=== PATIENT | female | born 1970 | race Caucasian/White ===

== ENCOUNTER 2017-11-18 15:34 | Emergency (ER) | payer MEDICAID, SELFPAY ==
[2017-11-18 15:35] VITALS: BP 143/67; PULSE 70; RESP 14; TEMP 36.3; O2SAT 96; BMI 34.4
--- NOTE | 2017-11-18 16:36 | RAD_ITS ---
STUDY: X-RAY - PELVIS REASON FOR EXAM: Female, 47 years old. Bilateral hip pain. TECHNIQUE: One view of the pelvis was obtained. COMPARISON: None. FINDINGS: There is a non-specific bowel gas pattern. Normal visualized soft tissue structures. Normal bilateral iliac wings, sacroiliac joints and visualized sacrum. Normal visualized bilateral superior and inferior pubic rami. Normal pubic symphysis. Normal ischial tuberosities. Normal visualized right femoral head. Normal right acetabulum. Normal right hip joint. Normal visualized left femoral head. Normal left acetabulum. Normal left hip joint. RAD/Pelvis 1 or 2 Views IMPRESSION: No acute pathology identified. Electronically Signed: Shane Byers MD at 16:57 EST , Service support ,
[2017-11-18 17:55] VITALS: BP 140/70; PULSE 75; RESP 14; O2SAT 99
--- NOTE | 2017-11-18 18:39 | ED.DCSUM_ITS ---
- ER Visit Summary Date of Service: 11/18/17 Chief Complaint: Bilateral acute on chronic hip pain History of Present Illness: The patient is a 47 F 3 of pseudoseizures, rheumatoid arthritis, bipolar disorder and anxiety. Patient states for the last several days she has had atraumatic bilateral hip pain. Denies any fall. Denies any fever. She has had these symptoms before. She denies being on any pain medication currently. She is able to walk. Physical Examination: Well-appearing middle-age female. Vital signs are stable and afebrile. She does not look septic or toxic. She is in no distress. H EENT exam unremarkable. Neck nontender no lymphadenopathy. Lungs clear to auscultation bilaterally. Heart regular rate and rhythm no murmur. Abdomen soft nontender. Obese. Normal bowel sounds no peritoneal signs. Extremities moves all 4. Neurovascular intact. Her hips are not dislocated. They are not swollen or red. She has normal range of motion of both hips, knees and ankles. There are no gross bony deformities or signs of dislocations. Feet are neurovascularly intact. Back exam is nontender. Neurologically she is awake and alert without focal deficits. Test Results: None Emergency Department Course and Treatment: Patient recently was seen an x-ray done of 1 of her hips. It showed degenerative changes but no fracture or dislocation. States her pain today is from chronic arthritic changes. There is no signs of septic joints there are no signs of either fracture or dislocation. And she has no history of trauma. She will be given 2 [place] here and discharged home. She can use Tylenol Motrin at home for pain she will not be written for a narcotic prescription. Treatment Plan: Discharged to home and use Tylenol Motrin for pain. Disposition: Discharge Impression: Acute on chronic bilateral hip pain with a history of rheumatoid arthritis History of bipolar disorder and anxiety This note was generated with [employer] dictation software. It may contain incorrect words, spelling, and punctuation that were not noted in review of the chart prior to signing ED Disposition - Plan for ED Patient: Chief Complaint: Lower Extremity Injury Referrals: Care Physician,No Primary [Primary Care Provider] -
--- NOTE | 2017-11-18 18:39 | ED.DEP ---
ED Disposition - Plan for ED Patient: Disposition: Home or Assisted Living Chief Complaint: Lower Extremity Injury Instructions: ED Chronic Pain Management Referrals: Care Physician,No Primary [Primary Care Provider] - As soon as possible Additional Instructions: Call and follow-up your primary care physician or your arthritis doctor for chronic pain medications or at least a plan for treatment of your pain.
[2017-11-18] MEDS: HYDROcodone Bitartrate/Apap 5/325 Tablet PO (18:51)
[2017-11-18 18:52] VITALS: BP 138/79; PULSE 61; RESP 15; O2SAT 96
== END 2017-11-18 18:53 | disposition home or self-care (01) ==
PROVIDERS: Emergency Provider Emergency Medicine
DX: M25.552 Pain in left hip (principal); M25.551 Pain in right hip; G89.29 Other chronic pain; M06.9 Rheumatoid arthritis, unspecified; F41.9 Anxiety disorder, unspecified; F31.9 Bipolar disorder, unspecified; R56.9 Unspecified convulsions; Z72.0 Tobacco use; Z79.891 Long term (current) use of opiate analgesic; Z79.899 Other long term (current) drug therapy
CPT/HCPCS: 72170; 99283

== ENCOUNTER 2018-01-17 19:02 | Observation (INO) | payer MEDICAID, SELFPAY ==
[2018-01-17] VITALS (10 sets, daily range): BP systolic 115–132; BP diastolic 57–79; PULSE 60–72; RESP 14–24; TEMP 36.7–37.1; O2SAT 96–98; BMI 33.6; BMI 34.7
--- NOTE | 2018-01-17 19:53 | EKG12_ITS ---
Test Reason : CP Blood Pressure : / mmHG Vent. Rate : 066 BPM Atrial Rate : 066 BPM P-R Int : 160 ms QRS Dur : 080 ms QT Int : 424 ms P-R-T Axes : 050 -52 -16 degrees QTc Int : 444 ms Normal sinus rhythm Left axis deviation Nonspecific ST and T wave abnormality Abnormal ECG Confirmed by MICHAEL ALVARADO, RENEA ([id number]), photography editor SANJIV CA ([id number]) on 01/20/2018 2:18:38 PM Referred By: JANAE Confirmed By:RENEA RODRIGUEZ MD
--- NOTE | 2018-01-17 19:55 | RAD_ITS ---
STUDY: X-RAY CHEST REASON FOR EXAM: Female, 47 years old. Chest pain TECHNIQUE: Frontal view of the chest COMPARISON: 12/02/2016 FINDINGS: The lungs are clear. There are no pleural effusions. There is no pneumothorax. The heart is normal in size. The visualized osseous structures are within normal limits. RAD/Chest 1 View (Portable) IMPRESSION: No acute thoracic pathology. Electronically Signed: Gion Jimenez, at 20:07 EDT Tel , Service support ,
[2018-01-17 20:04] LABS: Absolute Lymphocyte Count 4.96 X10^3/ul (0.83-4.51); Absolute Neutrophil Count 10.9 X10^3/uL (2.0-7.7); Basophil# 0.04 X10^3/uL; Basophil% 0.2 % (0-1); Eosinophil# 0.47 X10^3/uL; Eosinophils% 2.7 % (0-5); Hematocrit 42.3 % (37-47); Hemoglobin 13.6 g/dl (12.0-15.0); Lymphocyte # 4.96 X10^3/ul (4.0); Lymphocyte % 28.4 % (19-41); Mean Corp Hgb Conc 32.2 g/gl (32-36); Mean Corpuscular Hgb 28.6 pg (27.0-32.0); Mean Corpuscular Volume 89.1 fL (81-99); Mean Platelet Vol. 9.7 fl (6.2-12.0); Monocyte# 1.05 X10^3/uL; Neutrophil # 10.87 X10^3/uL (2.7-7.7); Neutrophil % 62.1 % (47-70); Platelet Count 298 K/mm3 (150-450); RBC Distribution Width CV 13.2 % (11.6-14.6); RBC Distribution Width SD 43.2 fl (35.1-43.9); Red Blood Count 4.75 M/mm3 (4.2-5.4); White Blood Count 17.5 K/mm3 (4.4-11.0)
[2018-01-17 20:14] LABS: D-Dimer Quantitative (DVT/PE) 0.36 FEU/ug/m (0.27-0.49)
[2018-01-17 20:16] LABS: POSITIVE COUNT NO; POSITIVE DIFFERENTIAL NO; POSITIVE MORPHOLOGY NO
[2018-01-17] MEDS: 0.9% Normal Saline 1,000 ML 150 ML IV (20:16)
[2018-01-17 20:22] LABS: Anion Gap 7 (5-15); BUN 8 mg/dL (7-18); BUN/Creat Ratio 10.3 RATIO (10-20); Calcium,Total 7.9 mg/dL (8.5-10.1); Chloride 109 mmol/L (98-107); Creatinine, Serum 0.77 mg/dL (0.55-1.02); EST Glomerular Filtration Rate 85 mL/min (>60); Est Glom Filt Rate - Afr Amer 103 mL/min (>60); Estimated Creatinine Clearance 87.83 ml/min; Glucose 135 mg/dL (74-106); Potassium 3.5 mmol/L (3.5-5.1); Sodium Level 139 mmol/L (136-145)
--- NOTE | 2018-01-17 21:08 | PCM.HP.STD ---
Problem List (1) Atypical chest pain Status: Acute (2) Bipolar disorder Status: Chronic (3) Rheumatoid arthritis Status: Chronic (4) Chronic stable asthma Status: Chronic History of Present Illness Date of Admission: 01/17/18 Chief Complaint: Chest pain since yesterday The patient is a 47 year old F with history of rheumatoid arthritis, bipolar and asthma came to ER with chest pain since yesterday. She describes her chest pain as bandlike in both side anteriorly over mid chest. It is constant without radiation and said felt like squeezing. She denies associated shortness of breath, sweating, diaphoresis, syncope but felt like dizziness and near fainting in the mall yesterday. Her CYRIL risk score is 1 with chest pain In ED, initial workup was negative except leukocytosis most probably because of his steroid, glucose 135. Troponin is normal. EKG shows normal sinus rhythm 56 bpm with LAD and nonspecific ST changes. No significant change from previous EKG of March 2017. [] Past Medical History Past Medical History (Chronic Problems): Chronic Problems Bipolar disorder (Chronic) Rheumatoid arthritis (Chronic) Chronic stable asthma (Chronic) Allergies ciprofloxacin [From Cipro] Allergy (Verified 11/18/17 17:54) Hives ciprofloxacin HCl [From Cipro] Allergy (Verified 11/18/17 17:54) Hives Penicillins Allergy (Verified 11/18/17 17:54) Hives Sulfa (Sulfonamide Antibiotics) Allergy (Verified 11/18/17 17:54) Hives diphenhydramine HCl [From Benadryl] Adverse Reaction (Verified 01/17/18 19:05) Other GETS HYPER Home Medications: Ambulatory Orders Medication Instructions Recorded Escitalopram Oxalate [Lexapro] 30 mg PO DAILY 03/03/14 Levothyroxine [Synthroid] 100 mcg PO DAILY 03/03/14 Aripiprazole [Abilify] 10 mg PO DAILY 12/10/15 Topiramate [Topamax] 100 mg PO QHS 12/10/15 traZODone [Desyrel] 300 mg PO QHS PRN 12/10/15 Carbamazepine [Carbamazepine ER] 800 mg PO QHS 04/27/16 Diazepam [Valium] 5 mg PO DAILY PRN 08/18/17 traMADol [Ultram] 50 mg PO Q6H PRN PRN #10 tablet 08/18/17 Methotrexate Sodium/Pf 1 dose IM QWEEK 01/17/18 [Methotrexate 25 mg/ml Vial] Smoking Status: Current every day smoker - *Family History Paternal History Items: Heart Disease Review of Systems Constitutional: Denies: Chills, Fever, Weight Change HEENT: Denies: Head Aches, Sinus Congestion, Sinus Drainage Cardiovascular: Reports: Chest Pain. Denies: Chest Pressure, Chest Tightness, Palpitations Respiratory: Denies: Cough, Shortness of breath at rest, Sputum production Gastrointestinal: Denies: Abdominal Pain, Nausea, Vomiting Genitourinary: Denies: Dysuria Musculoskeletal: Denies: Joint Pain, Joint Tenderness Skin: Denies: Rash, Wounds Neurological: Denies: Numbness, Tingling, Focal weakness Psychiatric: Denies: Anxiety, Depression, Homicidal Ideations, Suicidal Ideations Hematologic/ Lymphatic: Denies: Easy Bruising, Easy Bleeding VTE Information - Inpt Only VTE Present on Admission: No VTE Mechan Device Prophylaxis: SCD's VTE Pharm Prophylaxis ordered?: Yes Patient Problems: Active and Suspected Problems Atypical chest pain (Acute) - Physical Exam General: Alert, Oriented x3, Cooperative HEENT: Atraumatic, PERRLA, EOMI, Normocephalic Neck: Supple, No JVD, Negative Carotid Bruits Lungs: Clear to auscultation, Normal air movement, No rhonchi, No wheeze, No rales Cardiovascular: Regular rate, Regular Rhythm, Normal S1, Normal S2, No murmurs, - - Reproducible tenderness present over third to fourth costal cartilages Abdomen: Bowel Sounds Present, Soft, Non Tender Extremities: No edema, Capillary Refill Less than 3 Seconds Skin: No rashes, No breakdown Musculoskeletal: No Tenderness to Palpation of Joints or Extremities Neurological: Cranial nerves II-XII grossly intact Psych/Mental Status: Normal Affect, Appropriate Vital Signs Temp Pulse Resp BP Pulse Ox 98.0 F 60 19 H 120/79 98 01/17/18 19:03 01/17/18 21:06 01/17/18 21:06 01/17/18 21:06 01/17/18 21:06 Oxygen Flow Rate (L/min) 3 Oxygen Delivery Method Room Air Weight: 215 lb Body Mass Index (BMI) 33.6 Finger Stick Blood Glucose 98 Laboratory Tests Past 24 Hrs 01/17/18 01/17/18 01/17/18 19:13 19:13 19:13 WBC 17.5 H RBC 4.75 Hgb 13.6 Hct 42.3 MCV 89.1 MCH 28.6 MCHC 32.2 RDW 13.2 RDW Differential 43.2 Plt Count 298 MPV 9.7 Immature Gran % (Auto) 0.600 Neut % (Auto) 62.1 Lymph % (Auto) 28.4 Robertson % (Auto) 6.0 Eos % (Auto) 2.7 Baso % (Auto) 0.2 Absolute Neuts (auto) 10.9 H Absolute Lymphs (auto) 4.96 H Total Counted Not Reportable D-Dimer Quant (PE/DVT) 0.36 Sodium 139 Potassium 3.5 Chloride 109 H Carbon Dioxide 23.0 Anion Gap 7 BUN 8 Creatinine 0.77 Estim Creat Clear Calc 87.83 Est GFR (MDRD) Af Amer 103 Est GFR (MDRD) Non-Af 85 BUN/Creatinine Ratio 10.3 Glucose 135 H Calcium 7.9 L Troponin I < 0.02 Assessment/Plan Active and Suspected Problems Atypical chest pain (Acute) The patient is a 47 year old F with history of rheumatoid arthritis, bipolar and asthma came to ER with chest pain since yesterday. She describes her chest pain as bandlike in both side anteriorly over mid chest. It is constant without radiation and said felt like squeezing. She denies associated shortness of breath, sweating, diaphoresis, syncope but felt like dizziness and near fainting in the mall yesterday. Her CYRIL risk score is 1 with chest pain In ED, initial workup was negative except leukocytosis most probably because of his steroid, glucose 135. Troponin is normal. EKG shows normal sinus rhythm 56 bpm with LAD and nonspecific ST changes. No significant change from previous EKG of March 2017. 1. Atypical chest pain most probably costochondritis from RA, rule out acute coronary syndrome: Patient is being admitted in PCU. Cycle cardiac enzymes. Treadmill nuclear stress test tomorrow morning. Patient has added risk of coronary artery disease because of history of rheumatoid arthritis. 2. Rheumatoid arthritis: She is on methotrexate and on pain medications tramadol. 3. Psychiatric history including bipolar disorder, pseudoseizure disorder: She is on multiple antipsychotic medications. Continued. 4. Chronic stable asthma: Not on inhalers at home. DuoNeb as needed. 5. Leukocytosis with hyperglycemia: Etiology unclear her home medication does not show steroid but probably she might be using with history of RA. A1c tomorrow a.m. Leukocytosis seems reactive. Currently no active signs of infection. CBC tomorrow a.m. DVT prophylaxis: Moderate risk; on heparin 5000 units of cutaneous twice daily and bilateral SCDs This note was generated with [employer] dictation software. Every effort was made to ensure accuracy, however computerized property insurance inspector mistakes may persist. Code Visit OBSV E&M: 62218 Initial observation care L3
--- NOTE | 2018-01-17 21:14 | ED.DCSUM_ITS ---
- ER Visit Summary Date of Service: 01/17/18 Chief Complaint: [Chest pain] History of Present Illness: The patient is a 47 F [presents to the emergency department with chest pain that started yesterday. Patient states the pains been relatively continuous and describes it as a tightness across her chest. Patient feels short of breath with it. Patient denies diaphoresis or nausea. Patient is never had pain like this before. Patient denies recent travel or surgery. Patient does not have history of PE or DVT. Patient knows that her father had heart trouble but she does not know much about his history. Patient is a smoker. Patient denies injury to her chest. She denies fever or recent illness. Patient has had prior stress test but she states it has been many years.] Physical Examination: HEENT-PERRLA, EOMI. Cranial nerves II through XII grossly intact. TMs clear. Mucous membranes moist. No adenopathy. Cardiovascular-regular rate and rhythm without murmur or ectopy Lungs-clear to auscultation, chest wall stable without crepitus or subcu emphysema Abdomen-normoactive bowel sounds, soft, nontender, no rebound or rigidity, no peritoneal signs. Extremities-intact ?4, normal range of motion, normal pulses, atraumatic[] Test Results: [EKG obtained on arrival shows sinus rhythm with a ventricular rate of 66 bpm patient had some nonspecific ST changes when compared with prior EKG from February 20, 2017 no significant changes noted. CBC with differential obtained showed an elevated white count of 17.5, Hemoccult 13.6, hematocrit 42, platelets 298. Chemistries unremarkable. Troponin less than 0.02. D-dimer was 0.36. Chest x-ray showed nothing acute.] Emergency Department Course and Treatment: [Patient received sublingual nitro in the emergency department seemed to help her discomfort] Treatment Plan: [Patient case will be discussed with hospitalist evaluate patient for admission] Disposition: [Admit] Impression: [Chest pain-rule out acute coronary syndrome] This note was generated with [employer] dictation software. It may contain incorrect words, spelling, and punctuation that were not noted in review of the chart prior to signing ED Disposition - Plan for ED Patient: Chief Complaint: Chest Pain Referrals: Yobani Bello MD [Primary Care Provider] -
[2018-01-17] MEDS: Heparin Injection (Vial) 5,000 UNIT/ML VIAL 5000 UNIT SC (23:20)
[2018-01-17] MEDS: Topiramate 100 MG Tablet PO (23:20)
[2018-01-17] MEDS: traMADol 50 MG Tablet PO (23:20)
[2018-01-18 03:00] VITALS: PULSE 66
[2018-01-18 03:05] LABS: Absolute Lymphocyte Count 3.81 X10^3/ul (0.83-4.51); Absolute Neutrophil Count 7.3 X10^3/uL (2.0-7.7); Basophil# 0.02 X10^3/uL; Basophil% 0.2 % (0-1); Eosinophils% 3.3 % (0-5); Hematocrit 40.6 % (37-47); Hemoglobin 13.1 g/dl (12.0-15.0); Lymphocyte # 3.81 X10^3/ul (4.0); Mean Corp Hgb Conc 32.3 g/gl (32-36); Mean Corpuscular Hgb 28.8 pg (27.0-32.0); Mean Corpuscular Volume 89.2 fL (81-99); Mean Platelet Vol. 9.6 fl (6.2-12.0); Monocyte# 0.65 X10^3/uL; Monocyte% 5.3 % (0-10); Neutrophil # 7.34 X10^3/uL (2.7-7.7); Neutrophil % 59.6 % (47-70); Platelet Count 234 K/mm3 (150-450); RBC Distribution Width CV 13.4 % (11.6-14.6); RBC Distribution Width SD 43.5 fl (35.1-43.9); Red Blood Count 4.55 M/mm3 (4.2-5.4); White Blood Count 12.3 K/mm3 (4.4-11.0)
[2018-01-18 03:13] LABS: POSITIVE COUNT NO; POSITIVE DIFFERENTIAL NO; POSITIVE MORPHOLOGY NO
[2018-01-18 03:44] LABS: Cholesterol 190 mg/dL (200); High Density Lipoprotein 28 mg/dL; Thyroid Stim Hormone (TSH) 2.89 uIU/mL (0.358-3.74); Triglycerides 396 mg/dL; Very Low Density Lipoprotein 79 mg/dL (5-40)
[2018-01-18 03:53] LABS: Anion Gap 7 (5-15); BUN 7 mg/dL (7-18); BUN/Creat Ratio 10.5 RATIO (10-20); Calcium,Total 7.6 mg/dL (8.5-10.1); Chloride 112 mmol/L (98-107); Creatinine, Serum 0.66 mg/dL (0.55-1.02); EST Glomerular Filtration Rate 101 mL/min (>60); Est Glom Filt Rate - Afr Amer 122 mL/min (>60); Estimated Creatinine Clearance 102.47 ml/min; Glucose 150 mg/dL (74-106); Potassium 3.7 mmol/L (3.5-5.1); Sodium Level 142 mmol/L (136-145)
[2018-01-18 04:15] VITALS: BP 134/68; PULSE 71; RESP 18; TEMP 37; O2SAT 95
[2018-01-18] MEDS: Levothyroxine 100 MCG Tablet PO (05:50)
--- NOTE | 2018-01-18 05:55 | EKG12_ITS ---
Test Reason : AM EKG Blood Pressure : / mmHG Vent. Rate : 063 BPM Atrial Rate : 063 BPM P-R Int : 162 ms QRS Dur : 086 ms QT Int : 428 ms P-R-T Axes : 036 -32 -09 degrees QTc Int : 437 ms Normal sinus rhythm Left axis deviation Abnormal ECG When compared with ECG of 17-JAN-2018 19:04, MANUAL COMPARISON REQUIRED, DATA IS UNCONFIRMED Confirmed by MICHAEL ALVARADO, RENEA ([id number]), television news video editor SANJIV CA ([id number]) on 01/22/2018 2:33:19 PM Referred By: BRYNN Confirmed By:RENEA RODRIGUEZ MD
[2018-01-18 06:19] LABS: International Normalized Ratio 1.1; Prothrombin Time (Protime)PT. 14.3 SECONDS (11.7-14.9)
[2018-01-18 06:20] LABS: Partial Thromboplast Time 28.8 Seconds (24.1-36.2)
[2018-01-18 06:59] VITALS: PULSE 60
[2018-01-18] MEDS: traMADol 50 MG Tablet PO (07:08)
[2018-01-18 09:02] LABS: Hemoglobin A1c 6.2 % (4.2-6.3)
--- NOTE | 2018-01-18 10:11 | STRESSREP ---
Stress Test Report Pharmacologic myocardial perfusion stress test. 47-year-old lady with a history of chest pain. Stress protocol: Resting EKG demonstrates sinus rhythm with rate of 62 bpm normal intervals and noted resting blood pressure is 136/78 mmHg. 0.4 mg of regadenoson was infused per usual protocol followed by rapid intravenous saline flush injection continuous EKG monitoring was performed. The patient maintained sinus rhythm throughout the recording at rest there were no ST or T-wave changes noted suggest abnormal flow reserve at peak infusion no ST or T-wave changes were noted to suggest abnormal flow reserve. The resting blood pressure is 136/78 with a peak blood pressure 150/72. Myocardial perfusion protocol: 13.4 mCi of technetium 99m sestamibi was injected at rest. 0.4 mg of regadenoson was infused per usual protocol peak infusion 40.4 mCi of technetium 99m sestamibi was injected stress images were obtained stress and rest images were reconstructed and compared in the short axis vertical long and horizontal long axis. Gated images were also obtained next Perfusion SPECT analysis: Review of the stress images demonstrate normal uptake of tracer noted in all areas of the myocardium. The resting images similarly demonstrate normal uptake of tracer noted in all areas of the myocardium. No areas of reversibility are noted suggest ischemia. Gated SPECT analysis: The gated ejection fraction is 84%. Conclusion: Normal pharmacologic myocardial perfusion stress test. Preserved ejection fraction.
[2018-01-18 10:15] VITALS: BP 129/66; PULSE 64; RESP 16; TEMP 36.8; O2SAT 98
[2018-01-18] MEDS: Escitalopram Oxalate 10 MG Tablet 30 MG PO (10:18)
[2018-01-18] MEDS: ARIPiprazole 10 MG Tablet PO (10:18)
[2018-01-18 10:54] VITALS: PULSE 60
--- NOTE | 2018-01-18 11:17 | DCINST_ITS ---
- Discharge Diagnoses Current Active Problems: Current Active and Chronic Problems Atypical chest pain (Acute) Bipolar disorder (Chronic) Rheumatoid arthritis (Chronic) Chronic stable asthma (Chronic) You will use the following diet at home:: Calorie/Carbohydrate Controlled ( specify 1200, 1400, etc) - 1800 dora / day Your food should be the consistency of: Regular Your liquids should be the consistency of: Regular/Thin Discharge Activity: Return to Normal Activity Allergies/Adverse Reactions: Allergies ciprofloxacin [From Cipro] Allergy (Verified 11/18/17 17:54) Hives ciprofloxacin HCl [From Cipro] Allergy (Verified 11/18/17 17:54) Hives Penicillins Allergy (Verified 11/18/17 17:54) Hives Sulfa (Sulfonamide Antibiotics) Allergy (Verified 11/18/17 17:54) Hives diphenhydramine HCl [From Benadryl] Adverse Reaction (Verified 01/17/18 19:05) Other GETS HYPER Medications to take at Discharge Escitalopram Oxalate [Lexapro] 30 mg PO DAILY 03/03/14 Levothyroxine [Synthroid] 100 mcg PO DAILY 03/03/14 Aripiprazole [Abilify] 10 mg PO DAILY 12/10/15 Topiramate [Topamax] 100 mg PO QHS 12/10/15 traZODone [Desyrel] 300 mg PO QHS PRN 12/10/15 Carbamazepine [Carbamazepine ER] 800 mg PO QHS 04/27/16 Diazepam [Valium] 5 mg PO DAILY PRN 08/18/17 traMADol [Ultram] 50 mg PO Q6H PRN PRN #10 tablet 08/18/17 Methotrexate Sodium/Pf [Methotrexate 25 mg/ml Vial] 1 dose IM QWEEK 01/17/18 Primary Care Physician: Yobani Bello MD [Primary Care Provider] - Please follow up with your Primary Care Physician in: 1-2 weeks Please Follow Up With: Rheumatology - Discuss recent medication changes When: 1-2 weeks Proposed Discharge Date: 01/18/18
--- NOTE | 2018-01-18 14:27 | PCM.DC.SUM ---
<José Luis Perez - Last Filed: 01/18/18 14:27> Discharge Date and Diagnosis Date of Admission: 01/17/18 Date of Discharge: 01/18/18 - Primary Discharge Diagnosis Chest pain - musculoskeletal RA Prediabetes mellitus Obesity Hypertriglyceridemia Bipolar disorder, pseudoseizure hx Asthma Unspecified leukocytosis. - Secondary Discharge Diagnosis Chronic Problems Bipolar disorder (Chronic) Rheumatoid arthritis (Chronic) Chronic stable asthma (Chronic) Hospital Course and Treatment Imaging Results: RAD/Chest 1 View (Portable) IMPRESSION: No acute thoracic pathology. Stress test: Conclusion: Normal pharmacologic myocardial perfusion stress test. Preserved ejection fraction. Operations: None Procedures: Stress test Summary of Care Provided: Physical exam on day of discharge: General: Resting comfortably NAD Psych: A/Ox3 normal affect HEENT: PEARRLA AT NC Neck: Supple NT CV: RRR no m/t/r/g/h Resp: CTA Abd: [id number] Soft NT no guarding or rigidity, obesity Ext: DP2+= no edema Skin: W/D normal turgor Lymph/Heme: No active bleeding or adenopathy Neuro: CN2-12 intact Hospital course: The patient is a 47 year old F history of rheumatoid arthritis, bipolar disorder, pseudoseizures, obesity, and asthma who presented to the emergency room with chief complaint of chest pain that she described as a bandlike sensation across the anterior chest wall bilaterally. It was a constant pain that began the day prior that she had not experienced in the past. She did recently have one of her RA injections changed although she was not sure which one. She had a negative EKG and negative troponin in the ER. She had a negative chest x-ray as well. D-dimer was checked which was negative. She was admitted to the hospital for chest pain workup. Troponin remains negative, no events on telemetry, negative stress test the following day. She had her lipid panel checked which demonstrated LDL of 83, triglycerides significantly elevated at 396, and low HDL. TSH was normal. Given her obesity, and lipid changes, and underlying insulin resistance she likely has metabolic syndrome. Is felt that her pain was likely musculoskeletal secondary to rheumatoid arthritis possibly from her recent medication change. she had elevated glucose and A1c was checked, 6.2, which is consistent with prediabetes. I ordered for her to have diabetic education while she was here but will defer oral medications at this time. I advised her to stick to a diabetic diet, that she should follow-up with her PCP in 1-2 weeks, and also follow-up with her director financial services to discuss her recent medication changes. She did have an incidental finding of elevated white count at admission which improved overnight without treatment. There is no definitive etiology for this at this time, I do not feel that there is an acute infectious process at this time. She had no specific complaints indicating infection, and no fever. She was discharged home in stable condition. This patient was seen by José Luis Perez PA-C under the supervision of Doctor Cowan. [] Discharge Activity: Return to Normal Activity Home Medications: Medications to take at Discharge Escitalopram Oxalate [Lexapro] 30 mg PO DAILY 03/03/14 Levothyroxine [Synthroid] 100 mcg PO DAILY 03/03/14 Aripiprazole [Abilify] 10 mg PO DAILY 12/10/15 Topiramate [Topamax] 100 mg PO QHS 12/10/15 traZODone [Desyrel] 300 mg PO QHS PRN 12/10/15 Carbamazepine [Carbamazepine ER] 800 mg PO QHS 04/27/16 Diazepam [Valium] 5 mg PO DAILY PRN 08/18/17 traMADol [Ultram] 50 mg PO Q6H PRN PRN #10 tablet 08/18/17 Methotrexate Sodium/Pf [Methotrexate 25 mg/ml Vial] 1 dose IM QWEEK 01/17/18 Primary Care Physician: Yobani Bello MD [Primary Care Provider] - Please follow up with your Primary Care Physician in: 1-2 weeks Please Follow Up With: Rheumatology - Discuss recent medication changes When: 1-2 weeks Medical Necessity - Tobacco Use Smoking Status: Current every day smoker Meaningful Use Info Meaningful Use Diagnoses (Choose all that apply): None applicable <Shola Cowan - Last Filed: 01/18/18 15:10> Discharge Date and Diagnosis - Secondary Discharge Diagnosis Chronic Problems Bipolar disorder (Chronic) Rheumatoid arthritis (Chronic) Chronic stable asthma (Chronic) Hospital Course and Treatment Operations: None Procedures: Stress test Summary of Care Provided: Patient seen and examined independently. Agree with the above notes by the physician elder assistant. The patient is a 47 year old F resents with midsternal chest pain. Workup was unremarkable. Stress test was negative for any inducible ischemia. Physical exam is consistent with reproducible anterior chest wall tenderness. Patient was concerned that was 1 of her medications that cause it but was unsure but it was an injection. I told her that it is unlikely that it was due to the medication but feels prior more chest wall in etiology. Reassurance was provided to the patient and patient was discharged to home. [] Discharge Diet: No Restrictions Discharge Activity: Return to Normal Activity Disposition: Home Minutes spent on discharge:: 25 Patient Condition:: Good Meaningful Use Info Meaningful Use Diagnoses (Choose all that apply): None applicable Code Visit OBSV E&M: 03467 Observation care discharge
--- NOTE | 2018-01-18 14:36 | DS.PCM_ITS ---
<José Luis Perez - Last Filed: 01/18/18 14:27> Discharge Date and Diagnosis Date of Admission: 01/17/18 Date of Discharge: 01/18/18 - Primary Discharge Diagnosis Chest pain - musculoskeletal RA Prediabetes mellitus Obesity Hypertriglyceridemia Bipolar disorder, pseudoseizure hx Asthma Unspecified leukocytosis. - Secondary Discharge Diagnosis Chronic Problems Bipolar disorder (Chronic) Rheumatoid arthritis (Chronic) Chronic stable asthma (Chronic) Hospital Course and Treatment Imaging Results: RAD/Chest 1 View (Portable) IMPRESSION: No acute thoracic pathology. Stress test: Conclusion: Normal pharmacologic myocardial perfusion stress test. Preserved ejection fraction. Operations: None Procedures: Stress test Summary of Care Provided: Physical exam on day of discharge: General: Resting comfortably NAD Psych: A/Ox3 normal affect HEENT: PEARRLA AT NC Neck: Supple NT CV: RRR no m/t/r/g/h Resp: CTA Abd: [id number] Soft NT no guarding or rigidity, obesity Ext: DP2+= no edema Skin: W/D normal turgor Lymph/Heme: No active bleeding or adenopathy Neuro: CN2-12 intact Hospital course: The patient is a 47 year old F history of rheumatoid arthritis, bipolar disorder , pseudoseizures, obesity, and asthma who presented to the emergency room with chief complaint of chest pain that she described as a bandlike sensation across the anterior chest wall bilaterally. It was a constant pain that began the day prior that she had not experienced in the past. She did recently have one of her RA injections changed although she was not sure which one. She had a negative EKG and negative troponin in the ER. She had a negative chest x-ray as well. D-dimer was checked which was negative. She was admitted to the hospital for chest pain workup. Troponin remains negative, no events on telemetry, negative stress test the following day. She had her lipid panel checked which demonstrated LDL of 83, triglycerides significantly elevated at 396, and low HDL. TSH was normal. Given her obesity, and lipid changes, and underlying insulin resistance she likely has metabolic syndrome. Is felt that her pain was likely musculoskeletal secondary to rheumatoid arthritis possibly from her recent medication change. she had elevated glucose and A1c was checked , 6.2, which is consistent with prediabetes. I ordered for her to have diabetic education while she was here but will defer oral medications at this time. I advised her to stick to a diabetic diet, that she should follow-up with her PCP in 1-2 weeks, and also follow-up with her personnel technician to discuss her recent medication changes. She did have an incidental finding of elevated white count at admission which improved overnight without treatment. There is no definitive etiology for this at this time, I do not feel that there is an acute infectious process at this time. She had no specific complaints indicating infection, and no fever. She was discharged home in stable condition. This patient was seen by José Luis Perez PA-C under the supervision of Doctor Cowan. [] Discharge Activity: Return to Normal Activity Home Medications: Medications to take at Discharge Escitalopram Oxalate [Lexapro] 30 mg PO DAILY 03/03/14 Levothyroxine [Synthroid] 100 mcg PO DAILY 03/03/14 Aripiprazole [Abilify] 10 mg PO DAILY 12/10/15 Topiramate [Topamax] 100 mg PO QHS 12/10/15 traZODone [Desyrel] 300 mg PO QHS PRN 12/10/15 Carbamazepine [Carbamazepine ER] 800 mg PO QHS 04/27/16 Diazepam [Valium] 5 mg PO DAILY PRN 08/18/17 traMADol [Ultram] 50 mg PO Q6H PRN PRN #10 tablet 08/18/17 Methotrexate Sodium/Pf [Methotrexate 25 mg/ml Vial] 1 dose IM QWEEK 01/17/18 Primary Care Physician: Yobani Bello MD [Primary Care Provider] - Please follow up with your Primary Care Physician in: 1-2 weeks Please Follow Up With: Rheumatology - Discuss recent medication changes When: 1-2 weeks Medical Necessity - Tobacco Use Smoking Status: Current every day smoker Meaningful Use Info Meaningful Use Diagnoses (Choose all that apply): None applicable <Shola Cowan - Last Filed: 01/18/18 15:10> Discharge Date and Diagnosis - Secondary Discharge Diagnosis Chronic Problems Bipolar disorder (Chronic) Rheumatoid arthritis (Chronic) Chronic stable asthma (Chronic) Hospital Course and Treatment Operations: None Procedures: Stress test Summary of Care Provided: Patient seen and examined independently. Agree with the above notes by the physician assistant professor of biochemistry. The patient is a 47 year old F resents with midsternal chest pain. Workup was unremarkable. Stress test was negative for any inducible ischemia. Physical exam is consistent with reproducible anterior chest wall tenderness. Patient was concerned that was 1 of her medications that cause it but was unsure but it was an injection. I told her that it is unlikely that it was due to the medication but feels prior more chest wall in etiology. Reassurance was provided to the patient and patient was discharged to home. [] Discharge Diet: No Restrictions Discharge Activity: Return to Normal Activity Disposition: Home Minutes spent on discharge:: 25 Patient Condition:: Good Meaningful Use Info Meaningful Use Diagnoses (Choose all that apply): None applicable Code Visit OBSV E&M: 19822 Observation care discharge
== END 2018-01-18 11:17 | disposition home or self-care (01) ==
LOC: ED 19:47 → PCU 21:35
PROVIDERS: Admitting Provider Internal Medicine; Emergency Provider Emergency Medicine; Family Provider Family Medicine; PCP Family Medicine
DX: R07.89 Other chest pain (principal); R06.02 Shortness of breath; F31.9 Bipolar disorder, unspecified; Z79.899 Other long term (current) drug therapy; M06.9 Rheumatoid arthritis, unspecified; J45.909 Unspecified asthma, uncomplicated; D72.829 Elevated white blood cell count, unspecified; E78.1 Pure hyperglyceridemia; R73.03 Prediabetes; E66.9 Obesity, unspecified; Z68.34 Body mass index [BMI] 34.0-34.9, adult; Z71.3 Dietary counseling and surveillance; F17.200 Nicotine dependence, unspecified, uncomplicated
CPT/HCPCS: 36415; 71045; 78452; 80048; 80061; 83036; 83735; 84443; 84484; 85025; 85379; 85610; 85730; 93005; 93017; 96360; 96361; 96372; 97802; 99218; 99284; A9500; J7030; A4216; G0378; J2785

== ENCOUNTER 2018-02-07 16:07 | Emergency (ER) | payer MEDICAID, SELFPAY ==
[2018-02-07 16:08] VITALS: BP 141/86; PULSE 67; RESP 15; TEMP 36.7; O2SAT 99; BMI 33.3
--- NOTE | 2018-02-07 18:20 | RAD_ITS ---
STUDY: X-RAY CHEST REASON FOR EXAM: Female, 47 years old. Cough TECHNIQUE: Frontal and lateral views of the chest. COMPARISON: None. FINDINGS: The lungs are clear and expanded. There is no demonstrated pleural abnormality. Normal size heart. Normal mediastinum and benjamin. Normal visualized pulmonary arteries. Normal visualized aortic arch and descending thoracic aorta. Normal visualized thoracic spine. Normal visualized ribs, clavicles, and shoulders. There is no demonstrated abnormality of the visualized soft tissue structures of the upper abdomen. RAD/Chest PA and Lateral IMPRESSION: Normal x-ray examination of the chest. Electronically Signed: Damon Toney MD at 18:43 EDT , Service support ,
--- NOTE | 2018-02-07 18:58 | ED.DCSUM_ITS ---
- ER Visit Summary Date of Service: 02/07/18 Chief Complaint: Cough History of Present Illness: The patient is a 47 F who states for the past 3 weeks she has had a cough. She states she is coughing fits. He recently saw a physician was placed on doxycycline and prednisone. She states helping. She has tried Tessalon Perles that is not helping. The cough is nonproductive. There is no fever. It has been so bad that she is only been able to have one cigarette. Physical Examination: Afebrile vital signs are stable Gen: Well-nourished well-developed Head: Normocephalic atraumatic Eyes: Perrl EOMI ENT: TMs clear no rhinorrhea moist mucous membranes Neck: Supple no lymphadenopathy no JVD nontender CVS: Regular rate rhythm no murmurs normal S1-S2 Respiratory: No distress clear to auscultation bilaterally chest nontender the patient has an inconsistent cough. As a stand outside her room speaking with another patient's family there is no coughing. Says they walk into the room the patient starts to cough uncontrollably. She is able to stop however and begin talking to me without difficulty. Abdomen: Soft nontender nondistended normal bowel sounds no masses Back: Nontender Extremity: Nontender no edema Skin: Normal color no rash Neuro: alert orientated ?3 CN II-XII intact normal strength sensation reflexes gait cerebellar Psych: Normal affect normal mood Test Results: Chest x-ray is negative. Emergency Department Course and Treatment: I believe this to be viral. I will write for a cough medicine. She will follow-up with her doctors. Impression: 1. Viral URI This note was generated with [employer] dictation software. It may contain incorrect words, spelling, and punctuation that were not noted in review of the chart prior to signing ED Disposition - Plan for ED Patient: Disposition: Home or Assisted Living Chief Complaint: Cough Instructions: ED Upper Resp Infec Abx Tx Prescriptions: Guaifenesin/Codeine Phosphate [Codeine-Guaifen 10-100 mg/5 ml] 10 ml PO Q6H PRN 5 Days #200 ml PRN Reason: Cough Additional Instructions: Follow-up with your primary care doctor if not improving
== END 2018-02-07 19:16 | disposition home or self-care (01) ==
PROVIDERS: Emergency Provider Emergency Medicine; Family Provider Family Medicine; PCP Family Medicine
DX: J06.9 Acute upper respiratory infection, unspecified (principal); F17.210 Nicotine dependence, cigarettes, uncomplicated
CPT/HCPCS: 71046; 99284

== ENCOUNTER → 2018-02-19 15:21 | Outpatient (CLI) | payer MEDICAID, SELFPAY ==
--- NOTE | 2018-02-19 15:21 | DT_ITS ---
This patient was seen during an EMR downtime February 17, 2018 - February 24, 2018. This patient may have a combination of paper and electronic documentation or all paper documentation. All documentation is viewable within the e-chart portion of [facility] for each patient visit.
[2018-02-23 15:32] LABS: Thyroid Stim Hormone (TSH) 7.47 uIU/mL (0.358-3.74)
== END ==
PROVIDERS: Family Provider Family Medicine; PCP Family Medicine; Visit Provider Family Medicine
DX: E03.9 Hypothyroidism, unspecified (principal)
CPT/HCPCS: 36415; 84439; 84443; 86376; 86800

== ENCOUNTER → 2018-02-26 12:09 | Outpatient (CLI) | payer MEDICAID, SELFPAY ==
--- NOTE | 2018-02-26 12:12 | US_ITS ---
STUDY: THYROID ULTRASOUND REASON FOR EXAM: Female, 47 years old. Nodule TECHNIQUE: Ultrasound evaluation of the thyroid was performed with real-time and static cox-scale imaging. COMPARISON: None. FINDINGS: RIGHT LOBE: The right lobe of the thyroid gland measures 4.9 x 1.9 x 1.3 cm. There is a homogeneous echotexture. There are 2 solid nodules measuring 1 cm each. LEFT LOBE: The left lobe of the thyroid gland measures 5.0 x 2.4 x 1.7 cm. There is a homogeneous echotexture. There are nodules measuring 6 mm and 2.6 cm. ISTHMUS: The isthmus measures 3 mm . The regional lymph nodes are normal. US/Thyroid IMPRESSION: Bilateral thyroid nodules with one on the left measuring as much as 2.6 cm. Recommend biopsy of the dominant left thyroid nodule. Electronically Signed: Moe Soto MD at 8:38 EDT , Service support ,
== END ==
PROVIDERS: Family Provider Family Medicine; PCP Family Medicine; Visit Provider Family Medicine
DX: E04.1 Nontoxic single thyroid nodule (principal)
CPT/HCPCS: 76536

== ENCOUNTER 2018-02-27 15:00 | Outpatient (RCR) | payer MEDICAID, SELFPAY ==
--- NOTE | 2018-01-29 11:22 | HP.PTEVAL ---
Patient's Visit Information RYAN REYES is a 47 year old F referred to Physical Therapy by Out of Town Doctor with a diagnosis of Fibromyalgia. Date of Evaluation: 01/29/18 Physical Therapist: Ngoc Love - Visit Plan Frequency: 2x /Week Duration: 4 Weeks Plan: Aquatics Focus on full body strengthening and postural awareness - Subjective Subjective: Patient reports that she has Fibromyalgia and the MD thinks that they best thing to help treat is water therapy. Patient reports she has pain from head to toe- thats pretty much all the time. Fibro and RA. Has had 2 injections and they seem to be helping and will continue injections 1x a week then will do bloodwork and decide if she will keep her on it or not. The medication has been decreasing her pain but it makes her sleepy and it makes the right top of her foot numb. But its worth it. Worst: [address]: lifting, doing stuff she isn't suppose to do eases: Injections, heating bad. Best: 0/10. Last time has had pain was this morning due to sleeping in the wrong bed last night. The pain is much more managable now. Pain is dull and achy and sharp/shooting depending on what is going on. Numbness/Tingling on the top of her right foot with the injections. Her 16 year old daughter is in the home but she is not the timekeeper supervisor caregiver ( is). He does most of the care for her. She has seizures that makes it impossible her to be safecaregiver. Does not work outside of her home. Is currently taking tests to get into the career center and is hoping to take a year off due to the pain. But plans to go back. Patient is very sedentary and sleeps alot of day- sleeps in all positions and has no problems sleeping. Mostly sleeps on the couch. PMhx: Seizures (with pain)-is currently having them 2x a week- but will pull hair or scratch before the seizure. Will ride the van. 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 Meds: Escitalopram Oxalate [Lexapro] 30 mg PO DAILY 03/03/14 Levothyroxine [Synthroid] 100 mcg PO DAILY 03/03/14 Aripiprazole [Abilify] 10 mg PO DAILY 12/10/15 Topiramate [Topamax] 100 mg PO QHS 12/10/15 traZODone [Desyrel] 300 mg PO QHS PRN 12/10/15 Carbamazepine [Carbamazepine ER] 800 mg PO QHS 04/27/16 Diazepam [Valium] 5 mg PO DAILY PRN 08/18/17 traMADol [Ultram] 50 mg PO Q6H PRN PRN #10 tablet 08/18/17 Methotrexate Sodium/Pf [Methotrexate 25 mg/ml Vial] 1 dose IM QWEEK 01/17/18 Do not call 911 for seizures- will come out within 1-2 minutes. - Objective Posture: FH, RS. Increased kyphosis. Gait: no deviation noted. Stairs:asc/desc 8 recip with 2 HR. HR/TR: able but requires UE A. SLS: 2 sec on right and 1 sec on left before UE A required. ROM: WFL in all planes of UE and LE. Sensation: WNL. Strength: Ankle: 4+/5, Knee: 4+/5, Hip: 4/5 throughout, Core: fair minus, Scap: fair minus, Shoulder: 4/5 throughout, Elbow: 5/5, Wrist: 5/5, Starcher And Tenter Range Feeder: equal. Flex: HS: moderate, Gastroc: moderate - Goals Goal 1:: Patient will be I with HEP and progression Goal Time Frame: 4-6 Weeks Goal 2:: Patient will asc/desc 8 stairs recip with 1 HR Goal Time Frame: 4-6 Weeks Goal 3:: Patient will maintain proper posture t/o tx session to demo increased scap and core s/s Goal Time Frame: 4-6 Weeks Goal 4:: Patient will report no more than a 4/10 pain for 1 week Goal Time Frame: 4-6 Weeks - Rehabilitation Potential Physical Therapy Diagnosis: Patient presents with decrease strength and muscular endurance leading to poor posture and increased pain with mobility Rehabilitation Potential: Fair - Anticipated Interventions Patient/Client Instruction: Educate patient on: Benefits of Fitness Program For the Purpose of:: To increase tolerance to activity/condition/position Therapeutic Exercise to Include: Strength training, Endurance training, Agility training, Body mechanics, Postural training, Flexibilty training, In an aquatic setting, Dynamic Lumbar Stabilization, Scapular Strength/Stabilization For the Purpose of:: To improve muscle performance and motor function Thank you for the opportunity to evaluate your patient. For Medicare and Medicare HMO plans, please review the plan of care and approve it. It will need to be FAXED BACK to us at [phone] for Medicare purposes. Please let me know if there are questions or concerns regarding this plan of care. Physician Signature: Date:
--- NOTE | 2018-02-27 15:19 | HP.PTDCSUM ---
HP - PT D/C Summary It has been my pleasure to treat RYAN REYES under orders from [facility] Doctor, for the diagnosis of Fibromyalgia for a total of 6 visit(s). Discharge Date: Please see the following information for a summary of their discharge status. - Subjective Subjective: Patient reports that she learned a lot from water therapy. Quit smoking 12 days ago- Thinks she wants to try to do therapy at home. Was able to walk a long ways today when her car broke down. Has not had a seizure in over 2 weeks. - Pain General Soreness Pain Intensity (Out of 10): 0 - Overall Improvement % Improvement: 75 - Objective Objective/Function: Posture: FH, RS. Increased kyphosis. Gait: no deviation noted. Stairs:asc/desc 8 recip with 1 HR. HR/TR: able. SLS: 5 sec on right and 3 sec on left before UE A required. ROM: WFL in all planes of UE and LE. Sensation: WNL. Strength: Ankle: 4+/5, Knee: 4+/5, Hip: 4+/5 throughout, Core: fair, Scap: fair , Shoulder: 4+/5 throughout, Elbow: 5/5, Wrist: 5/5, Drill Sharpener Operator: equal. Flex: HS: moderate, Gastroc: moderate - Goals Goal 1:: Patient will be I with HEP and progression Goal Progress: Goal Met Goal 2:: Patient will asc/desc 8 stairs recip with 1 HR Goal Progress: Goal Met Goal 3:: Patient will maintain proper posture t/o tx session to demo increased scap and core s/s Goal Progress: Progressing Goal 4:: Patient will report no more than a 4/10 pain for 1 week Goal Progress: Goal Met - Plan Plan: Discharge to I HEP - D/C Information If there are questions or concerns regarding this patient's physical therapy, please feel free to call me at [phone]. Thank you for the referral of this patient. Sincerely, Ngoc Love
== END 2018-02-27 19:00 | disposition home or self-care (01) ==
LOC: PT 15:00
PROVIDERS: Family Provider Family Medicine; PCP Family Medicine; Visit Provider Internal Medicine Rheumatology
DX: M79.7 Fibromyalgia (principal)
CPT/HCPCS: 97113; 97162; 97164

== ENCOUNTER 2018-03-02 22:43 | Emergency (ER) | payer MEDICAID, SELFPAY ==
[2018-03-02 22:46] VITALS: BP 143/72; PULSE 64; RESP 18; TEMP 36.4; O2SAT 97; BMI 34.4
--- NOTE | 2018-03-02 23:00 | ED.DCSUM_ITS ---
- ER Visit Summary Date of Service: 03/02/18 Chief Complaint: Thyroid nodules History of Present Illness: The patient is a 47 F 3 of pseudoseizures, depression, anxiety and bipolar disorder. Patient states last week she was diagnosed with thyroid nodules. She was concerned and with swelling giving her trouble breathing. She denies being shortness of breath. She denies chest pain. She denies any trouble swallowing. Physical Examination: Very well-appearing middle-age female. Vital signs are stable afebrile. Pulse ox 97% on room air no signs of hypoxia. She is in no distress. HEENT exam unremarkable neck nontender I do not palpate any thyroid enlargement or nodules. No lymphadenopathy. Trachea midline. Patient was given a glass of water she had absolutely no trouble swallowing or breathing. There is no drooling or stridor. Lungs are clear. Heart regular rate and rhythm no murmur. Chest wall nontender. Abdomen soft nontender. She is moving all 4 extremities. Neurologically she is awake alert with no focal deficits. Test Results: None Emergency Department Course and Treatment: Clinically the patient has a normal exam. This appears to be more anxiety about the thyroid nodules and any true pathology at this time. She will be discharged to home. Follow-up regarding her thyroid nodules to her primary care physician. Treatment Plan: [] Disposition: Discharge Impression: Acute anxiety History of thyroid nodules History of depression, anxiety and bipolar disorder This note was generated with [employer] dictation software. It may contain incorrect words, spelling, and punctuation that were not noted in review of the chart prior to signing ED Disposition - Plan for ED Patient: Chief Complaint: Other, Pain/Inj Referrals: Arya Cason MD [Primary Care Provider] -
--- NOTE | 2018-03-02 23:00 | ED.DEP ---
ED Disposition - Plan for ED Patient: Disposition: Home or Assisted Living Chief Complaint: Other, Pain/Inj Referrals: Arya Cason MD [Primary Care Provider] - 1-2 Weeks Additional Instructions: Call and follow-up your primary care physician.
[2018-03-02 23:04] VITALS: RESP 16
--- NOTE | 2018-03-02 23:05 | ED.RN ---
REVIEWED D/C INSTRUCTIONS, FOLLOW UP CARE, AND S/S THAT WOULD WARRANT A RETURN TO THE ED WITH PT. PT VERBALIZED AN UNDERSTANDING AND DENIES FURTHER QUESTIONS FOR THIS RN. PT SKIN P/W/D, RESP EVEN AND UNLABORED, PT A&O X 3, NO DISTRESS NOTED. PT AMBULATED OUT OF ED, GAIT STEADY.
== END 2018-03-02 23:06 | disposition home or self-care (01) ==
PROVIDERS: Emergency Provider Emergency Medicine; Family Provider Family Medicine; PCP Family Medicine
DX: F41.9 Anxiety disorder, unspecified (principal); E04.1 Nontoxic single thyroid nodule; F32.9 Major depressive disorder, single episode, unspecified; Z72.0 Tobacco use; Z79.891 Long term (current) use of opiate analgesic; Z79.899 Other long term (current) drug therapy
CPT/HCPCS: 99284

== ENCOUNTER → 2018-03-22 10:00 | Outpatient (CLI) | payer MEDICAID, SELFPAY ==
--- NOTE | 2018-03-22 10:00 | ASPS_PTH ---
PATIENT: RYAN REYES LOC: [facility] U#:[id number] AGE/SX: 55/F ROOM: RE03/22/[address]: Dr. Jem Elias MD : 1970 BED: DIS: SPEC #: [id number] RECD: 03/24/18 14:35 STATUS: GISSELL KADEEM #: [id number] ISMAEL: 03/22/18 10:[address]: Jem Elias DEPT: CYTOLOGY RECD BY: Matt Patricia ENTERED: 03/24/18 14:35 SP TYPE: ASPIRATION OTHR DR: Dr. Arya Cason MD Tissues: A - Thyroid gland, NOS B - Thyroid gland, NOS Procedures: Special Stain Group II Cytology Other HEADER OPERATION: Bilateral thyroid FNA PRE-OP DIAGNOSIS: Bilateral thyroid nodules TISSUE SUBMITTED: A ? Right thyroid (6 slides), B ? Left thyroid (6 slides) DIAGNOSIS CYTOLOGY A. Right thyroid nodule, FNA (smears): Consistent with benign follicular nodule. See cytology study and comment. B. Left thyroid nodule, FNA (smears): Consistent with benign follicular nodule with focal cystic changes. See cytology study and comment. SJ:rg 03/25/18 COMMENT Correlation with clinical, radiologic findings and appropriate follow up are necessary. CYTOLOGY STUDY Slides are reviewed. A. The specimen is adequate for evaluation. The specimen consists of benign follicular cells and small amount of colloid. B. The specimen is adequate for evaluation. The specimen consists of benign follicular cells, colloid and macrophages. The findings may represent adenomatoid nodule with cystic changes. CYTOLOGY GROSS A - Received are six smears labeled with the patient's name and designated per the requisition as right thyroid. Submitted for staining. B - Received are six smears labeled with the patient's name and designated per the requisition as left thyroid. Submitted for staining. 03/24/18 TC:5 CPT: 57071 x2
== END ==
PROVIDERS: Family Provider Family Medicine; PCP Family Medicine; Visit Provider Surgery
DX: E04.1 Nontoxic single thyroid nodule (principal)
CPT/HCPCS: 88161; 88313

== ENCOUNTER 2018-06-10 17:08 | Emergency (ER) | payer MEDICAID, SELFPAY ==
[2018-06-10] VITALS (7 sets, daily range): BP systolic 127–140; BP diastolic 73–83; PULSE 74–86; RESP 15–16; TEMP 36.7; O2SAT 96–99; BMI 34.9
--- NOTE | 2018-06-10 17:50 | CM.ED ---
Social Work Note Referral from [facility] Mike RN for verification of suicidal ideation. Introduced self and role to pt upon entry into ED room. Pt is alert and oriented and sitting upright in bed with a book on her lap. The pt is a 47 y/o obese female that presents with pain and suicidal ideation. Informs this typewriter assembly and parts inspector upon entry that she has fibromyalgia and rheumatoid arthritis. She sees a bacteriology teacher in [place], but cannot recall her name. States that she saw her approximately one month ago and is supposed to be on Saturday but cannot make it until then. She also sees Connie Last, psychiatrist, at the [facility]. She sees her every two months for depression and bipolar DO, but is unsure at this time what she prescribes. Denies seeing a counselor at [facility] or any other counseling agency. States that the pain will not go away. She reports having 3 rum and cokes which she discontinued drinking at 1500, states that she also took an old Hydrocodone pill. Pt is very polite towards staff and apologizes for questioning and poor history provided. She does have a blunted affect as there is very little variation in facial expressions or emotions exhibited. Complete the [place]-Suicide Severity Rating Scale (CSSRS) to which pt answers yes to all six items indicating that the pt has suicidal thoughts, intention and means to complete suicide and has been thinking about it since this morning. Pt verbalizes that she intends to take prescription medications to overdose. Reports that she would do this when she got home out of her daughter's sight. She was hospitalized at the age of 17/18 at [facility], and states that she has not had suicidal ideation since prior to her marriage which was 26 years ago. Request that the pt elaborates on not harming herself in front of her daughter, and she states that she would not do it in front of her daughter. States that her daughter could live without her as long as her were around. Inquire about her spouse and his ability to manage her loss, and she states that, He could get remarried. He is an attractive cynthia. Inquire if pt has any identifiable reasons to live and she states, no. Pt inquires if this typewriter assembly and parts inspector believes in God, which this typewriter assembly and parts inspector chooses to not disclose. She then states that if she is in such pain, what is her purpose in living. Inquire if the pt wants to find her purpose, which she declines. Inquire if she believes that suicide is a sin. Pt states that she does believe this is a sin, and that she would go to hell, but asks what the difference is between that hell and the one she is currently living in. Based on verbal expressions of this patient, this typewriter assembly and parts inspector does not feel that one on one supervision can be revoked and the pt will need to be evaluated by crisis to determine if psychiatric hospitalization is required. She does not demonstrate any unusual movements such as lip smacking, tremors or grimacing. He speech is clear, but monotonous. Pt is not identifying protective factors or demonstrating futuristic thought at this time, which identifies her as a risk for suicide. Physician updated. Plan: Crisis to evaluate for potential psychiatric hospitalization due to suicidal ideation.
[2018-06-10 18:32] LABS: Anion Gap 13 (5-15); BUN 9 mg/dL (7-18); BUN/Creat Ratio 9.8 RATIO (10-20); Calcium,Total 7.5 mg/dL (8.5-10.1); Chloride 108 mmol/L (98-107); Creatinine, Serum 0.92 mg/dL (0.55-1.02); EST Glomerular Filtration Rate 69 mL/min (>60); Est Glom Filt Rate - Afr Amer 84 mL/min (>60); Estimated Creatinine Clearance 73.51 ml/min; Glucose 170 mg/dL (74-106); Potassium 3.4 mmol/L (3.5-5.1); Sodium Level 140 mmol/L (136-145)
[2018-06-10 18:34] LABS: Absolute Lymphocyte Count 4.44 X10^3/ul (0.83-4.51); Absolute Neutrophil Count 9.1 X10^3/uL (2.0-7.7); Basophil# 0.09 X10^3/uL; Basophil% 0.6 % (0-1); Eosinophils% 3.8 % (0-5); Hematocrit 39.5 % (37-47); Hemoglobin 12.9 g/dl (12.0-15.0); Lymphocyte # 4.44 X10^3/ul (4.0); Lymphocyte % 28.1 % (19-41); Mean Corp Hgb Conc 32.7 g/gl (32-36); Mean Corpuscular Hgb 29.1 pg (27.0-32.0); Mean Platelet Vol. 9.8 fl (6.2-12.0); Monocyte# 1.17 X10^3/uL; Monocyte% 7.4 % (0-10); Neutrophil # 9.14 X10^3/uL (2.7-7.7); Neutrophil % 57.9 % (47-70); Platelet Count 317 K/mm3 (150-450); RBC Distribution Width CV 13.6 % (11.6-14.6); RBC Distribution Width SD 43.9 fl (35.1-43.9); Red Blood Count 4.44 M/mm3 (4.2-5.4); White Blood Count 15.8 K/mm3 (4.4-11.0)
[2018-06-10 18:35] LABS: POSITIVE COUNT YES; POSITIVE DIFFERENTIAL NO; POSITIVE MORPHOLOGY YES
[2018-06-10 18:40] LABS: Pregnancy, Serum, hCG Quali. NEGATIVE Negative (0-9 Nonpreg)
[2018-06-10 18:47] LABS: Amphetamine Urine VISTA NEGATIVE (<1000 ng/mL); Barbiturate Urine VISTA NEGATIVE (< 200 ng/mL); Benzodiazepine Urine VISTA NEGATIVE (< 200 ng/mL); Cocaine Urine VISTA NEGATIVE (< 300 ng/mL); Ecstacy Urine VISTA NEGATIVE (< 500 ng/mL); Methadone Urine VISTA NEGATIVE (< 300 ng/mL); PCP Urine VISTA NEGATIVE (< 25 ng/mL); THC Urine VISTA NEGATIVE (< 50 ng/mL); Vista UDS pH Range 6
--- NOTE | 2018-06-10 23:14 | ED.VISSUMM ---
- ER Visit Summary Date of Service: 06/10/18 Chief Complaint: [Depression and suicidal ideation] History of Present Illness: The patient is a 47 F [presents the emergency department feeling depressed today and patient states that she does not want to live anymore. Patient states that she has severe pain tonight due to her fibromyalgia and history of rheumatoid arthritis. Patient states that she did take a [place] that she had left over from prior prescription which did not help her pain. Patient states that she wants to overdose on her medications. Patient denies any auditory or visual hallucinations.] Patient denies feeling homicidal. Physical Examination: [HEENT-PERRLA, EOMI. Cranial nerves II through XII grossly intact. TMs clear. Mucous membranes moist. No adenopathy. Cardiovascular-regular rate and rhythm without murmur or ectopy Lungs-clear to auscultation, chest wall stable without crepitus or subcu emphysema Abdomen-normoactive bowel sounds, soft, nontender, no rebound or rigidity, no peritoneal signs. Extremities-intact ?4, normal range of motion, normal pulses, atraumatic] Test Results: [CBC with differential showed a slightly elevated white count of 15.8, hemoglobin 12.9, hematocrit 39, platelets 317. Chemistries unremarkable. Toxicology screen was negative. Alcohol was negative.] Emergency Department Course and Treatment: [Patient was evaluated by crisis and arrangements were made for patient to be transferred to psychiatric facility] Treatment Plan: [Transfer to psychiatric facility] Disposition: [Transfer] Impression: [Depression Suicidal ideation] This note was generated with [facility] dictation software. It may contain incorrect words, spelling, and punctuation that were not noted in review of the chart prior to signing ED Disposition - Plan for ED Patient: Chief Complaint: Suicidal Referrals: Arya Cason MD [Primary Care Provider] -
[2018-06-11 00:09] VITALS: RESP 16; O2SAT 98
[2018-06-11] MEDS: Ibuprofen 200 MG Tablet 400 MG PO (00:27)
[2018-06-11] MEDS: MELATONIN 10 MG TABLET PO (01:05)
[2018-06-11 01:09] VITALS: RESP 16; O2SAT 98
[2018-06-11 02:53] VITALS: BP 127/62; PULSE 63; RESP 16; O2SAT 96
[2018-06-11 14:58] LABS: Pathologist Review Reviewed
== END 2018-06-11 02:56 | disposition short-term general hospital (02) ==
LOC: ED 17:45
PROVIDERS: Emergency Provider Emergency Medicine; Family Provider Family Medicine; PCP Family Medicine
DX: R45.851 Suicidal ideations (principal); F32.9 Major depressive disorder, single episode, unspecified; M06.9 Rheumatoid arthritis, unspecified; Z79.891 Long term (current) use of opiate analgesic; Z87.891 Personal history of nicotine dependence
CPT/HCPCS: 36415; 80048; 80307; 80320; 84703; 85025; 99285; G0480

== ENCOUNTER → 2018-06-17 09:23 | Outpatient (CLI) | payer MEDICAID, SELFPAY ==
--- NOTE | 2018-06-17 09:34 | RAD_ITS ---
STUDY: X-RAY - LUMBAR SPINE REASON FOR EXAM: Female, 47 years old. Low back pain TECHNIQUE: 5 view(s) of the lumbar spine were obtained. COMPARISON: Lumbar spine x-ray May 09, 2015 FINDINGS: There is straightening of the physiologic lordosis. There is no substantial scoliosis. There is a normal alignment of the vertebrae. There is multilevel endplate spondylosis of the lumbar vertebrae. Normal disc space heights. There is a nonspecific bowel gas pattern. RAD/L/S Spine Min 4 Views IMPRESSION: Straightening of the physiologic lordosis similar to prior study. This can be associated muscle spasm or pain. There is mild multilevel spondylosis. Electronically Signed: Bella Callejas MD at 19:03 EDT Tel , Service support ,
--- NOTE | 2018-06-17 09:34 | RAD_ITS ---
STUDY: X-RAY - SACROILIAC JOINTS REASON FOR EXAM: Female, 47 years old. Low back pain TECHNIQUE: 3 view(s) of the sacroiliac joints were obtained. COMPARISON: None. FINDINGS: There are mild degenerative changes of the bilateral sacroiliac joints. Normal visualized sacral ala and sacrum. Normal visualized iliac bones. Normal visualized soft tissue structures. RAD/S-I Jts 3 or More Views IMPRESSION: Mild degenerative change. Electronically Signed: Bella Callejas MD at 19:04 EDT Tel , Service support ,
[2018-06-17 10:20] LABS: Absolute Lymphocyte Count 3.36 X10^3/ul (0.83-4.51); Absolute Neutrophil Count 10.2 X10^3/uL (2.0-7.7); Basophil# 0.07 X10^3/uL; Basophil% 0.4 % (0-1); Eosinophil# 0.69 X10^3/uL; Eosinophils% 4.4 % (0-5); Hematocrit 40.7 % (37-47); Hemoglobin 13.2 g/dl (12.0-15.0); Lymphocyte # 3.36 X10^3/ul (4.0); Lymphocyte % 21.4 % (19-41); Mean Corp Hgb Conc 32.4 g/gl (32-36); Mean Corpuscular Hgb 29.1 pg (27.0-32.0); Mean Corpuscular Volume 89.6 fL (81-99); Mean Platelet Vol. 9.5 fl (6.2-12.0); Monocyte# 1.23 X10^3/uL; Monocyte% 7.8 % (0-10); Neutrophil # 10.17 X10^3/uL (2.7-7.7); Neutrophil % 64.7 % (47-70); POSITIVE COUNT NO; POSITIVE DIFFERENTIAL NO; POSITIVE MORPHOLOGY NO; Platelet Count 284 K/mm3 (150-450); RBC Distribution Width CV 13.8 % (11.6-14.6); RBC Distribution Width SD 45.1 fl (35.1-43.9); Red Blood Count 4.54 M/mm3 (4.2-5.4); White Blood Count 15.7 K/mm3 (4.4-11.0)
[2018-06-17 10:40] LABS: Anion Gap 8 (5-15); BUN 14 mg/dL (7-18); BUN/Creat Ratio 15.6 RATIO (10-20); Calcium,Total 8.3 mg/dL (8.5-10.1); Chloride 108 mmol/L (98-107); EST Glomerular Filtration Rate 71 mL/min (>60); Est Glom Filt Rate - Afr Amer 86 mL/min (>60); Glucose 94 mg/dL (74-106); Sodium Level 139 mmol/L (136-145); T4 Free Direct 1.12 ng/dL (0.76-1.46); Thyroid Stim Hormone (TSH) 3.29 uIU/mL (0.358-3.74)
[2018-06-20 10:14] LABS: Anti-Thyroglobulin AB < 1.0 IU/mL (0.0-0.9); Thyroid Peroxidase AB 7 IU/mL (0-34)
== END ==
PROVIDERS: Family Provider Family Medicine; PCP Family Medicine; Visit Provider Family Medicine
DX: M54.5 Low back pain (principal); E03.9 Hypothyroidism, unspecified; E87.6 Hypokalemia
CPT/HCPCS: 36415; 72110; 72202; 80048; 84432; 84439; 84443; 85025; 86376; 86800

== ENCOUNTER 2018-08-13 09:30 | Outpatient (RCR) | payer MEDICAID, SELFPAY ==
--- NOTE | 2018-06-19 12:45 | HP.PTEVAL ---
Patient's Visit Information RYAN REYES is a 47 year old F referred to Physical Therapy by Arya Cason MD with a diagnosis of Chronic LBP. Date of Evaluation: 06/18/18 Physical Therapist: Ngoc Love - Visit Plan Frequency: 2x /Week Duration: 4 Weeks Plan: Focus on lumbar ROM, core and LE strength, and balance to assist with proper form walking and negotiating stairs. - Subjective Subjective: Pt. c/o severe low back, bilat. hip and knee pain. Last night went to ER, pain all over from RA, mostly knees, back. Hydrocodone at hospital; take as needed now. Last Saturday released from [facility] from contemplating suicide due to pain. Physician in ER believed needs pain management. Other complaints include difficulty walking, increased HR, increased body temperature from pain. Pain from head to toe, mostly lumbar, hip, knees. Just took pain pill at 10:00 today, current pain 8/10, worse 10/10, best 6/10. Pain described as constant nagging pain in knees and low back. Occasional numbness and tingling in legs. Radiographs on Saturday, showing arthritis. Laying supine relieves some pain. Can stand 10 minutes before pain. Can sit in straight chair for half hour; can lay in couch unlimited amount of time. Massage provides relief for 15 minutes. Heat and ice used to help but not anymore. Don't like taking pain medication because cannot do as much activity. Taking 3 sleep aid for depression and anxiety so able 5 hours at a time. Sleeps in all positions. Has 4 wheel walker and cane. Live in mobile home difficult for walker to maneuver so does not use. Uses walker in public or carts in stores. [facility] fl[facility]. Wears flip flops everywhere. Cleans, bathes, gets dressed with no problem. Little trouble with stairs; winded and painful, use elevator if available. Plans to join online support group, sabianist, wants to go back to school. Able to run errands with . Not driving. Have chair in bathtub-try not to use. Only place giving pain medicine is [facility]. Pool therapy in past enjoyed. PMH depression, anxiety, bipolar, thyroid inactive, psuedoseizure, RA, fibromyalgia. Medications same as past but added methotrexate, folic acid, embril, hydrocodone. No injections. Just hired new physician [facility]; appointment August 04. No changes in bowel/bladder. Goals: decrease pain level to 6-7/10. - Objective Gait: decreased rodri, ER of both LE, reaching for objects to hold on to if available. Posture: kyphosis, mild rounded shoulders, swollen feet. Stairs: ascend/descend reciprocally 2 HR, decreased speed and SOB at top and bottom of stairs. Dermatomes: LE intact bilat. Reflexes: patellar bilat. 1+. AROM: lumbar flex reach top of knees, ext. approx 20 deg, side bend bilat. to mid thigh, rotate approx 30 deg. Hip, knee, ankle WFL. Toe raise without UE support; heel raise with UE support. Balance: SL 5 seconds bilat. no UE support. Strength: hip flex 4+/5, ext. 3+/5, abd./add 5/5, knee flex 3+5, knee ext. 5/5, ankle 5/5 throughout. Core strength fair. Flexibility: hamstring mild restriction, gastroc and soleus no restriction. Special Tests: Slump bilat (+) SLR bilat. (+) - Goals Goal 1:: Patient will be I with HEP and progressions. Goal Time Frame: 4-6 Weeks Goal 2:: Patient will maintain proper posture throughout session demonstrating increased lumbar and core strength and stabilization. Goal Time Frame: 4-6 Weeks Goal 3:: Patient will report pain equal or less than 6/10 for 1 week. Goal 4:: Patient will increase lumbar range of motion to WFL. Goal Time Frame: 4-6 Weeks Goal 5:: Patient will SL balance on each leg for 10 seconds without UE support. Goal Time Frame: 4-6 Weeks - Rehabilitation Potential Physical Therapy Diagnosis: Patient presents with hypomobility. Decreased lumbar motion, core and lower extremity strength along with pain limiting patient from functional mobility with minimal pain. Rehabilitation Potential: Fair - Anticipated Interventions Patient/Client Instruction: Educate patient on: Condition, Plan of Care For the Purpose of:: To decrease pain, To increase ROM, To improve muscle performance and motor function, To increase tolerance to activity/condition/position, To improve performance and independence with ADL's, To improve gait and locomotor functions Therapeutic Exercise to Include: Strength training, Power training, Endurance training, Balance training, Coordination, Agility training, Postural training, Gait and locomotor training, In an aquatic setting, Active ROM, Dynamic Lumbar Stabilization For the Purpose of:: To decrease pain, To increase ROM, To improve muscle performance and motor function, To improve ability to perform ADL's, To increase tolerance to activity/condition/position, To improve performance and independence with ADL's, To increase flexibility/ROM, To improve endurance, To improve balance TENS: Yes Cryotherapy (ice pack, ice massage): Yes Thermo therapy (hot pack): Yes Ultrasound (thermal/non thermal): Yes For the Purpose of:: To decrease pain Thank you for the opportunity to evaluate your patient. For Medicare and Medicare HMO plans, please review the plan of care and approve it. It will need to be FAXED BACK to us at [phone] for Medicare purposes. Please let me know if there are questions or concerns regarding this plan of care. Physician Signature: Date:
--- NOTE | 2018-07-24 13:27 | HP.PTREVAL_ITS ---
Arya Cason MD, It has been my pleasure to treat RYAN REYES over the last 8 visits for Chronic LBP. Please see the progress note below for an update on the physical therapy plan of care! Subjective: Patient reports that shes pretty good- the back is not as bad- but doesn't feel its going to go away. Would like to be progressed to land ex ercises so that she can do more at home. She is a 6/10 all the time- increasing Methotrexate next week. Objective/Function: Gait: no deviation noted. Posture: kyphosis, mild rounded shoulders Stairs: ascend/descend reciprocally 2 HR, AROM: lumbar flex reach top of knees, ext. approx 20 deg, side bend bilat. to mid thigh, rotate approx 30 deg. Hip, knee, ankle WFL. Toe raise without UE support; heel raise with UE support. Balance: SL 5 seconds bilat. no UE support. Strength: hip flex 4+/5, ext. 4/5, abd./add 5/5, knee flex 4/5, knee ext. 5/5, ankle 5/5 throughout. Core strength fair. Plan Plan: 2x a week for 4 weeks- progress on land exercises Goals Goal 1:: Patient will be I with HEP and progressions. Goal Time Frame: 4-6 Weeks Goal Progress: Progressing Goal 2:: Patient will maintain proper posture throughout session demonstrating increased lumbar and core strength and stabilization. Goal Time Frame: 4-6 Weeks Goal Progress: Progressing Goal 3:: Patient will report pain equal or less than 6/10 for 1 week. Goal Progress: Progressing Goal 4:: Patient will increase lumbar range of motion to WFL. Goal Time Frame: 4-6 Weeks Goal Progress: Progressing Goal 5:: Patient will SL balance on each leg for 10 seconds without UE support. Goal Time Frame: 4-6 Weeks Goal Progress: Progressing Anticipated Interventions Patient/Client Instruction: Educate patient on: Condition, Plan of Care For the Purpose of:: To decrease pain, To increase ROM, To improve muscle performance and motor function, To increase tolerance to activity/condition/position, To improve performance and independence with ADL's, To improve gait and locomotor functions Therapeutic Exercise to Include: Strength training, Power training, Endurance training, Balance training, Coordination, Agility training, Postural training, Gait and locomotor training, In an aquatic setting, Active ROM, Dynamic Lumbar Stabilization For the Purpose of:: To decrease pain, To increase ROM, To improve muscle performance and motor function, To improve ability to perform ADL's, To increase tolerance to activity/condition/position, To improve performance and independence with ADL's, To increase flexibility/ROM, To improve endurance, To improve balance TENS: Yes Cryotherapy (ice pack, ice massage): Yes Thermo therapy (hot pack): Yes Ultrasound (thermal/non thermal): Yes For the Purpose of:: To decrease pain Please do not hesitate to contact me at [phone] by phone or if you have questions or concerns regarding this new plan of care! Sincerely, Ngoc Love
--- NOTE | 2018-11-11 14:20 | HP.PT.NRP ---
HP - Discharge Summary (1) - Patient Information RYAN REYES was seen in my office for initial evaluation on 06/18/18. The following Plan of Care was established for this patient: Initial Frequency: 2x /Week Initial Duration: 4 Weeks - Anticipated Interventions Patient/Client Instruction: Educate patient on: Condition, Plan of Care For the Purpose of:: To decrease pain, To increase ROM, To improve muscle performance and motor function, To increase tolerance to activity/condition/position, To improve performance and independence with ADL's, To improve gait and locomotor functions Therapeutic Exercise to Include: Strength training, Power training, Endurance training, Balance training, Coordination, Agility training, Postural training, Gait and locomotor training, In an aquatic setting, Active ROM, Dynamic Lumbar Stabilization For the Purpose of:: To decrease pain, To increase ROM, To improve muscle performance and motor function, To improve ability to perform ADL's, To increase tolerance to activity/condition/position, To improve performance and independence with ADL's, To increase flexibility/ROM, To improve endurance, To improve balance TENS: Yes Cryotherapy (ice pack, ice massage): Yes Thermo therapy (hot pack): Yes Ultrasound (thermal/non thermal): Yes For the Purpose of:: To decrease pain This patient was last seen in our office . Pertinent comments regarding their Physical therapy will appear below: Patient has not attended physical therapy in over 60 days and is appropriate to be discharged. Return to MD for further evaluation. At this point I will be discontinuing this patient from physical therapy. I would be happy to see this patient again in the future if found appropriate by the physician. Thank you! Ngoc Love DPT
== END 2018-08-13 19:00 | disposition home or self-care (01) ==
LOC: PT 09:30
PROVIDERS: Family Provider Family Medicine; PCP Family Medicine; Referring Provider Family Medicine; Visit Provider Family Medicine
DX: M54.5 Low back pain (principal)
CPT/HCPCS: 97110; 97113; 97162; 97164

== ENCOUNTER 2018-10-23 18:04 | Emergency (ER) | payer MEDICAID, SELFPAY ==
[2018-10-23 18:04] VITALS: BP 128/79; PULSE 84; RESP 22; TEMP 36.4; O2SAT 97; BMI 34.2
[2018-10-23 19:45] VITALS: RESP 18; O2SAT 97
--- NOTE | 2018-10-23 20:09 | RAD_ITS ---
STUDY: X-RAY CHEST REASON FOR EXAM: Female, 48 years old. Cough. TECHNIQUE: PA and lateral views of the chest. COMPARISON: February 07, 2018 FINDINGS: The lungs are clear and expanded. There is no demonstrated pleural abnormality. Normal size heart. Normal mediastinum and benjamin. Normal visualized pulmonary arteries. Normal visualized aortic arch and descending thoracic aorta. Normal visualized thoracic spine. Normal visualized ribs, clavicles, and shoulders. There is no demonstrated abnormality of the visualized soft tissue structures of the upper abdomen. RAD/Chest PA and Lateral IMPRESSION: No acute cardiopulmonary process. Electronically Signed: Abi Santoyo MD at 20:35 EST Tel , Service support ,
[2018-10-23] MEDS: Ipratropium/Albuterol Sulfate 3 ML AMPUL.NEB INHALATION (20:30)
--- NOTE | 2018-10-23 20:35 | ED.DCSUM_ITS ---
- ER Visit Summary Date of Service: 10/23/18 Chief Complaint: Cough History of Present Illness: The patient is a 48 F presenting with cough x 3 weeks. Patient states this has been intermittent. She feels that she is worsening over the past couple of days. She did receive a flu shot this year. She states she has been on antibiotics and steroids. She does not recall which antibiotic she was on. She has finished the antibiotics and steroids. She denies chest pain or shortness of breath. Denies fever. Denies other complaints. Physical Examination: Vitals are stable. Patient is afebrile. Alert no acute distress. HEENT exam is unremarkable. Neck is supple. Lungs are clear and equal bilaterally. Heart is regular rate and rhythm. Abdomen is soft nontender nondistended. Extremities are unremarkable. Skin is warm and dry. No focal neurologic deficit. Remainder of exam is unremarkable. Emergency Department Course and Treatment: She was given a DuoNeb. Chest x-ray shows no acute process. Patient is resting comfortably on reevaluation. She is given prescription for Tessalon Perles. She is advised to follow up with her primary care physician. Advised return to ED if worsening complaints. Disposition: Discharge home Impression: Bronchitis This note was generated with [employer] dictation software. It may contain incorrect words, spelling, and punctuation that were not noted in review of the chart prior to signing ED Disposition - Plan for ED Patient: Instructions: ED Upper Resp Infec No Abx Tx Prescriptions: Benzonatate [Tessalon Perle] 200 mg PO TID PRN PRN #20 capsule PRN Reason: Cough Referrals: Arya Cason MD [STAFF PHYSICIAN] -
[2018-10-23 21:35] VITALS: RESP 18
--- NOTE | 2018-10-23 22:38 | ED.DEP ---
ED Disposition - Plan for ED Patient: Instructions: ED Upper Resp Infec No Abx Tx Prescriptions: Benzonatate [Tessalon Perle] 200 mg PO TID PRN PRN #20 capsule PRN Reason: Cough Referrals: Arya Cason MD [STAFF PHYSICIAN] -
[2018-10-23 22:48] VITALS: PULSE 69; RESP 18; O2SAT 96
== END 2018-10-23 22:56 | disposition home or self-care (01) ==
LOC: ED 20:36
PROVIDERS: Emergency Provider Emergency Medicine; Family Provider Physician Assistant; PCP Physician Assistant
DX: J40 Bronchitis, not specified as acute or chronic (principal); M06.9 Rheumatoid arthritis, unspecified
CPT/HCPCS: 71046; 94640; 99282

== ENCOUNTER 2018-12-01 19:29 | Inpatient (IN) | payer MEDICAID, SELFPAY ==
[2018-12-01 19:31] VITALS: BP 129/75; PULSE 95; PULSE 96; RESP 16; TEMP 36.7; O2SAT 97; BMI 34.5
--- NOTE | 2018-12-01 19:46 | US_ITS ---
STUDY: ULTRASOUND OF THE FEMALE PELVIS - COMPLETE REASON FOR EXAM: Female, 48 years old. Left lower quadrant pain. LMP: 11/07/2018 TECHNIQUE: Transabdominal and Transvaginal TECHNICAL QUALITY: Adequate. COMPARISON: CT scan 06/03/2016. FINDINGS: The uterus is anteverted and is in a midline position. The uterus measures 8.1 x 6.7 x 5.2 cm. There is a Nabothian cyst of the cervix. The endometrium measures 12 mm in thickness, and is hyperechoic. There is no demonstrated endometrial mass. 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 There is no demonstrated myometrial mass. I.U.D. - The patient does not have an I.U.D. The right ovary is visualized. The right ovary measures 3.6 x 2.5 x 1.9 cm. There is no right ovarian cyst or ovarian mass. There is no visualized right adnexal mass or complex lesion. There is normal arterial and normal venous vascularity. The left ovary is visualized. The left ovary measures 3.0 x 2.5 x 1.6 cm. There is a 1.5 cm left ovarian cyst. There is no visualized left adnexal mass or complex lesion. There is normal arterial and normal venous vascularity. There is minimal fluid in the cul-de-sac. Intraluminal echoes are seen in the bladder suggestive of debris which could represent cystitis. US/Transvaginal Non- IMPRESSION: Endometrial echoes are at the upper limits of normal for a patient this age. However no endometrial contents are seen. Otherwise normal uterus and [employer]CIAL PL[employer]NER structures. Possible cystitis, correlate with urinalysis. Electronically Signed: Moe Soto MD at 21:29 EDT , Service support ,
--- NOTE | 2018-12-01 19:46 | CT_ITS ---
STUDY: CT ABDOMEN AND PELVIS WITHOUT CONTRAST REASON FOR EXAM: Female, 48 years old. Left lower quadrant and left groin pain for 2 days. RADIATION DOSAGE (If Supplied By Facility): CTDIvol = ( 13.07 ) mGy, DLP = ( 1400.52 ) mGycm TECHNIQUE: Transaxial images were obtained from the dome of the diaphragm to the symphysis pubis with oral contrast, and without intravenous contrast. Sagittal and coronal images were reconstructed. Individualized dose optimization techniques were used for this CT. COMPARISON: June 03, 2016. FINDINGS: The visualized lung bases are unremarkable. The visualized portions of the heart are within normal limits. There is diffuse fatty infiltration of the liver without focal mass. Focal fatty sparing is seen in the gallbladder fossa. Gallbladder is well distended with questionable internal sludge or stones. There is no wall thickening or inflammatory change. There is no biliary ductal dilatation. Normal spleen. Normal pancreas. Normal bilateral adrenal glands. Normal right kidney. Normal left kidney. Normal bilateral ureters. Normal visualized stomach. Normal small intestine. There is wall thickening and inflammatory changes about the distal descending and proximal sigmoid colon with multiple diverticuli consistent with acute diverticulitis. There is no obvious perforation or abscess formation. The proximal colon appears normal. The appendix is visualized and appears normal. Normal abdominal aorta. Normal inferior vena cava. Normal retroperitoneum. Normal urinary bladder. The uterus and ovaries. There is no pelvic lymphadenopathy or mass. No free air or free fluid is seen within the peritoneal cavity. Small umbilical hernia of omental fat. The abdominal wall is otherwise unremarkable. Normal osseous structures. CT/Abdomen/Pel W ORAL Cont Only IMPRESSION: 1. Descending and sigmoid diverticulitis. There is no perforation or abscess. 2. Fatty infiltration liver without mass. 3. Question gallstones/sludge without acute inflammatory process. Electronically Signed: Randall Weaver DO at 22:07 EDT Tel [phone], Service support ,
--- NOTE | 2018-12-01 19:48 | ED.VISSUMM ---
- ER Visit Summary Date of Service: 12/01/18 Chief Complaint: Abdominal pain History of Present Illness: The patient is a 48 F presenting with abdominal pain. Patient states this started yesterday. She has pain in the left lower quadrant. She denies nausea or vomiting. She has had loose stool. She has had intermittent constipation. She denies urinary complaints. Denies fever. Denies other complaints. She has a history of ovarian cyst. Physical Examination: Vitals are stable. Patient is afebrile. Alert no acute distress. HEENT exam is unremarkable. Neck is supple. Lungs are clear and equal bilaterally. Heart is regular rate and rhythm. Abdomen is soft left lower quadrant tenderness with no rebound no guarding Extremities are unremarkable. Skin is warm and dry. No focal neurologic deficit. Remainder of exam is unremarkable. Emergency Department Course and Treatment: Patient was given morphine, Zofran, IV fluids. CBC shows white count 17.5. Chemistries normal glucose 123. Alk phos 130. Urinalysis unremarkable. Pelvic ultrasound shows endometrial echoes are at the upper limits of normal for a patient this age. However no endometrial contents are seen. Otherwise normal uterus and [employer] structures. CT abdomen pelvis shows descending and sigmoid diverticulitis. There is no perforation or abscess. Fatty infiltration liver without mass. Question gallstones/sludge without acute inflammatory process. Patient was given additional morphine. She states she does not feel well enough to go home. She is given Flagyl and Rocephin due to allergies. Discussed with the hospitalist for admission. Disposition: Admission Impression: Diverticulitis This note was generated with [employer] dictation software. It may contain incorrect words, spelling, and punctuation that were not noted in review of the chart prior to signing ED Disposition - Plan for ED Patient: Referrals: Cheli Olmedo PA [Primary Care Provider] -
[2018-12-01] MEDS: 0.9% Normal Saline 1,000 ML 1000 ML IV (20:00)
[2018-12-01] MEDS: Morphine 4 MG/ML Syringe IV ×2 (20:01→22:50)
[2018-12-01] MEDS: Ondansetron 4 MG/2 ML Vial IV (20:01)
[2018-12-01 20:14] LABS: Absolute Lymphocyte Count 2.62 X10^3/ul (0.83-4.51); Absolute Neutrophil Count 12.1 X10^3/uL (2.0-7.7); Basophil# 0.06 X10^3/uL; Basophil% 0.3 % (0-1); Eosinophil# 0.92 X10^3/uL; Eosinophils% 5.2 % (0-5); Hematocrit 39.7 % (37-47); Hemoglobin 13.3 g/dl (12.0-15.0); Lymphocyte # 2.62 X10^3/ul (4.0); Lymphocyte % 14.9 % (19-41); Mean Corp Hgb Conc 33.5 g/gl (32-36); Mean Corpuscular Hgb 29.8 pg (27.0-32.0); Mean Platelet Vol. 9.6 fl (6.2-12.0); Monocyte# 1.78 X10^3/uL; Monocyte% 10.1 % (0-10); Neutrophil # 12.06 X10^3/uL (2.7-7.7); Neutrophil % 68.9 % (47-70); Platelet Count 349 K/mm3 (150-450); RBC Distribution Width CV 13.8 % (11.6-14.6); RBC Distribution Width SD 44.5 fl (35.1-43.9); Red Blood Count 4.46 M/mm3 (4.2-5.4); White Blood Count 17.5 K/mm3 (4.4-11.0)
[2018-12-01 20:15] LABS: Differential Indicated SCAN CRITERIA MET; POSITIVE COUNT NO; POSITIVE DIFFERENTIAL YES; POSITIVE MORPHOLOGY NO
[2018-12-01 20:17] LABS: ALB/GLOB Ratio 0.9 RATIO (0.9-2.4); AST(SGOT) 17 U/L (15-37); Alanine Aminotransfer ALT/SGPT 33 U/L (13-56); Albumin, Serum 3.3 g/dL (3.2-5.0); Alkaline Phosphatase 130 U/L (45-117); Anion Gap 5 (5-15); BUN 11 mg/dL (7-18); BUN/Creat Ratio 11.4 RATIO (10-20); Calcium,Total 8.5 mg/dL (8.5-10.1); Chloride 106 mmol/L (98-107); Creatinine, Serum 0.96 mg/dL (0.55-1.02); EST Glomerular Filtration Rate 66 mL/min (>60); Est Glom Filt Rate - Afr Amer 79 mL/min (>60); Estimated Creatinine Clearance 69.69 ml/min; Globulin 3.8 g/dL (2.2-4.2); Glucose 123 mg/dL (74-106); Potassium 3.6 mmol/L (3.5-5.1); Protein, Total 7.1 g/dL (6.4-8.2); Sodium Level 137 mmol/L (136-145)
[2018-12-01 20:26] LABS: Differential Comment SCANNED
[2018-12-01 21:17] LABS: Bacteria 0 SEEN /hpf (None Seen); Mucous, Urine 0 SEEN /hpf (<or=2+)
[2018-12-01 21:20] LABS: Color, Urine Yellow (Yellow); Glucose, Dipstick Normal (Normal); Ketone-Dipstick Negative (Negative); Leukocyte Esterase-Dipstick 25 /ul (Negative); Nitrite-Dipstick Negative (Negative); Occult Blood-Urine Negative /ul (Negative); Protein-Dipstick Negative (Negative); Specific Gravity, Urine 1.015 (1.002-1.030); Urine Bilirubin Dipstick Negative (Negative); Urine Clarity Sl. Cloudy (Clear); Urine Urobilinogen Normal (Normal); Urine pH 6.5 (5.0 - 8.0)
[2018-12-01 21:29] LABS: Red Blood Cells-Urine 0-5 SEEN /hpf (0-5); White Blood Cells 0-5 SEEN /hpf (0-5)
[2018-12-01 21:30] LABS: Amorphous Sediment 3+
[2018-12-01 21:31] LABS: Squamous Epithelial Cells - UA 0-5 SEEN /hpf (5-10); Transitional Epithelial - Ur 0 SEEN /hpf (0-5)
[2018-12-01 22:12] VITALS: BP 131/70; PULSE 80; RESP 14; O2SAT 98
--- NOTE | 2018-12-01 23:58 | PCM.HP.STD ---
Problem List (1) Abdominal pain Status: Acute Qualifiers: Abdominal location: left lower quadrant Qualified Code(s): R10.32 - Left lower quadrant pain History of Present Illness Date of Admission: 12/01/18 Chief Complaint: LLQ abdominal pain The patient is a 48 year old female patient presents to the ER with Left lower quadrant abdominal pain. Onset was yesterday. The pain is so strong that she says she is unable to move or walk on her own. She has nausea but denies vomiting. She states she has moved her bowels in the last 24hours. CT scan reveals descending colon inflammation with diverticulitis. She has a fatty liver as well but no other acute findings are noted. WBC count is elevated with a left shift. Due to allergies of PCN and ciprofloxacin the patient was started on Rocephin and Flagyl. She will be admitted for diverticulitis. Past Medical History Past Medical History (Chronic Problems): Chronic Problems (Last Reviewed 03/22/18 @ 09:18 by Ngoc Dominguez) Bipolar disorder (Chronic) Rheumatoid arthritis (Chronic) Chronic stable asthma (Chronic) Medical History: Medical History (Last Reviewed 03/22/18 @ 09:18 by Ngoc Dominguez) Multiple thyroid nodules (Acute) E04.2 Atypical chest pain (Acute) R07.89 Bipolar disorder (Chronic) F31.9 Rheumatoid arthritis (Chronic) M06.9 Chronic stable asthma (Chronic) Thyroid nodule E04.1 Allergies ciprofloxacin [From Cipro] Allergy (Verified 10/23/18 18:07) Hives ciprofloxacin HCl [From Cipro] Allergy (Verified 10/23/18 18:07) Hives Penicillins Allergy (Verified 10/23/18 18:07) Hives Sulfa (Sulfonamide Antibiotics) Allergy (Verified 10/23/18 18:07) Hives diphenhydramine HCl [From Benadryl] Adverse Reaction (Verified 10/23/18 18:07) Other GETS HYPER Home Medications: Ambulatory Orders Medication Instructions Recorded Methotrexate Sodium/Pf 1 dose IM QWEEK 01/17/18 [Methotrexate 25 mg/ml Vial] albuterol 90 mcg/actuation aerosol 90 mcg INHALATION .every 4 hours 03/12/18 inhaler prn etanercept 50 mg/mL (0.98 mL) 50 mg SC QWEEK 03/12/18 subcutaneous syringe pantoprazole 40 mg tablet,delayed 40 mg PO QDAY 03/12/18 release Surgical History: Surgical History (Last Reviewed 03/22/18 @ 09:18 by Ngoc Dominguez) History of Z98.891 History of tubal ligation Z98.51 Smoking Status: Former smoker - *Family History Paternal Family History: Family History (Last Reviewed 03/22/18 @ 09:18 by Ngoc Dominguez) Sister Arthritis Father Heart disease History Items: Heart Disease Review of Systems Constitutional: Reports: Fever. Denies: Chills, Weight Change HEENT: Denies: Head Aches, Sinus Congestion, Sinus Drainage Cardiovascular: Denies: Chest Pain, Palpitations Respiratory: Denies: Cough, Shortness of breath at rest, Sputum production Gastrointestinal: Reports: Abdominal Pain, Nausea. Denies: Hematemesis, Hematochezia, Melena, Vomiting Genitourinary: Denies: Dysuria Musculoskeletal: Denies: Joint Pain, Joint Tenderness Skin: Denies: Rash, Wounds Neurological: Denies: Numbness, Tingling, Focal weakness Psychiatric: Reports: Anxiety. Denies: Depression, Homicidal Ideations, Suicidal Ideations Hematologic/ Lymphatic: Denies: Easy Bruising, Easy Bleeding VTE Information - Inpt Only VTE Present on Admission: No VTE Mechan Device Prophylaxis: None VTE Pharm Prophylaxis ordered?: Yes Patient Problems: Active and Suspected Problems (Last Reviewed 03/22/18 @ 09:18 by Ngoc Dominguez) Abdominal pain (Acute) - Physical Exam General: Alert, Oriented x3, Cooperative HEENT: Atraumatic, Normocephalic Neck: Supple Lungs: Clear to auscultation, Normal air movement, No rhonchi, No wheeze, No rales Cardiovascular: Regular rate, Regular Rhythm, Normal S1, Normal S2, No murmurs Abdomen: Bowel Sounds Present, Soft, Obese, Tender - LLQ Extremities: No edema Skin: No rashes Musculoskeletal: No Tenderness to Palpation of Joints or Extremities Neurological: Neuro grossly intact Psych/Mental Status: Normal Affect, Appropriate Vital Signs Temp Pulse Resp BP Pulse Ox 98.1 F 80 14 131/70 H 98 12/01/18 19:31 12/01/18 22:12 12/01/18 22:12 12/01/18 22:12 12/01/18 22:12 Oxygen Delivery Method Room Air Weight: 220 lb 7.396 oz Body Mass Index (BMI) 34.5 Finger Stick Blood Glucose 98 Laboratory Tests Past 24 Hrs 12/01/18 12/01/18 12/01/18 19:55 19:55 21:15 WBC 17.5 H RBC 4.46 Hgb 13.3 Hct 39.7 MCV 89.0 MCH 29.8 MCHC 33.5 RDW 13.8 RDW Differential 44.5 H Plt Count 349 MPV 9.6 Immature Gran % (Auto) 0.600 Neut % (Auto) 68.9 Lymph % (Auto) 14.9 L [place] % (Auto) 10.1 H Eos % (Auto) 5.2 H Baso % (Auto) 0.3 Absolute Neuts (auto) 12.1 H Absolute Lymphs (auto) 2.62 Total Counted Not Reportable Differential Comment SCANNED Sodium 137 Potassium 3.6 Chloride 106 Carbon Dioxide 26.0 Anion Gap 5 BUN 11 Creatinine 0.96 Estim Creat Clear Calc 69.69 Est GFR (MDRD) Af Amer 79 Est GFR (MDRD) Non-Af 66 BUN/Creatinine Ratio 11.4 Glucose 123 H Calcium 8.5 Total Bilirubin 0.40 AST 17 ALT 33 Alkaline Phosphatase 130 H Total Protein 7.1 Albumin 3.3 Globulin 3.8 Albumin/Globulin Ratio 0.9 Urine Color Yellow Urine Clarity Sl. Cloudy Urine pH 6.5 Ur Specific [place] 1.015 Urine Protein Negative Urine Glucose (UA) Normal Urine Ketones Negative Urine Occult Blood Negative Urine Nitrite Negative Urine Bilirubin Negative Urine Urobilinogen Normal Ur Leukocyte Esterase 25 H Urine RBC 0-5 SEEN Urine WBC 0-5 SEEN Ur Squamous Epith Cells 0-5 SEEN Ur Transition Epith Cell 0 SEEN Amorphous Sediment 3+ Urine Bacteria 0 SEEN Urine Mucus 0 SEEN Assessment/Plan All Active Problems (Last Reviewed 03/22/18 @ 09:18 by Ngoc Dominguez) Abdominal pain (Acute) Multiple thyroid nodules (Acute) Atypical chest pain (Acute) Chronic Problems (Last Reviewed 03/22/18 @ 09:18 by Ngoc Dominguez) Bipolar disorder (Chronic) Rheumatoid arthritis (Chronic) Chronic stable asthma (Chronic) Assessment and Plan 1. Acute Diverticulitis/LLQ abdominal Pain. Admit to general medical floor. NPO, IV normal saline at 125cc/hour. Morphine 2mg IV q 2hrs prn pain. 1gm Rocephin q 24hrs and Flagyl 500mg IV QID 2. continue routine home medications for Bipolar,Asthma and RA 3. LMWH for DVT prophylaxis Code Visit Inpatient E&M: 38160 Init Hosp L3
[2018-12-02 00:13] VITALS: BP 128/78; PULSE 85; RESP 15; O2SAT 98
[2018-12-02] MEDS: Ceftriaxone 1 GM/50 ML BAG IV (00:15)
--- NOTE | 2018-12-02 00:18 | NURSING ---
patient sent upstairs with other antbx, initial antbx still running
[2018-12-02 00:36] VITALS: BMI 34.5; BMI 34.6
[2018-12-02 00:54] VITALS: BP 123/76; PULSE 79; RESP 15; TEMP 37; O2SAT 93
[2018-12-02] MEDS: Morphine 2 MG/ML Syringe IV ×6 (01:27→19:27)
[2018-12-02] MEDS: 0.9% Normal Saline 1,000 ML 150 ML IV ×3 (04:41→22:32)
[2018-12-02 04:47] VITALS: BP 120/65; PULSE 84; RESP 16; TEMP 36.8; O2SAT 95
[2018-12-02 06:16] LABS: Hematocrit 38.5 % (37-47); Hemoglobin 12.2 g/dl (12.0-15.0); Mean Corp Hgb Conc 31.7 g/gl (32-36); Mean Corpuscular Hgb 29.1 pg (27.0-32.0); Mean Corpuscular Volume 91.9 fL (81-99); Mean Platelet Vol. 9.6 fl (6.2-12.0); Platelet Count 318 K/mm3 (150-450); RBC Distribution Width CV 13.9 % (11.6-14.6); RBC Distribution Width SD 45.9 fl (35.1-43.9); Red Blood Count 4.19 M/mm3 (4.2-5.4); White Blood Count 15.4 K/mm3 (4.4-11.0)
[2018-12-02 06:29] LABS: Scan Indicated on CBC? Y/N NO
[2018-12-02 06:43] LABS: Anion Gap 8 (5-15); BUN 10 mg/dL (7-18); BUN/Creat Ratio 11.5 RATIO (10-20); Chloride 109 mmol/L (98-107); Creatinine, Serum 0.87 mg/dL (0.55-1.02); EST Glomerular Filtration Rate 74 mL/min (>60); Est Glom Filt Rate - Afr Amer 89 mL/min (>60); Glucose 120 mg/dL (74-106); Potassium 3.7 mmol/L (3.5-5.1); Sodium Level 141 mmol/L (136-145)
[2018-12-02 09:59] VITALS: BP 149/88; PULSE 83; RESP 18; TEMP 36.7; O2SAT 93
[2018-12-02] MEDS: Enoxaparin 40 MG/0.4 ML Syringe SC (10:13)
[2018-12-02] MEDS: 0.9% NaCl Peripheral Flush Adult/Peds IV ×2 (10:13→22:45)
[2018-12-02] MEDS: Pantoprazole Sodium 40 MG Tablet PO (10:13)
[2018-12-02 14:01] VITALS: BP 109/54; PULSE 92; RESP 16; TEMP 37.6; O2SAT 92
--- NOTE | 2018-12-02 18:27 | PN_ITS ---
Patient Problems: Active and Suspected Problems (Last Reviewed 03/22/18 @ 09:18 by Ngoc Dominguez) Abdominal pain (Acute) Subjective: She was seen and examined today, she complained of feeling thirsty and having continued abdominal pain but requested liquids to drink. High temp today was 99.7. Patient's white blood cell count decreased today. I have changed the patient's diet to a clear liquid diet, will repeat labs on her tomorrow and advance her diet if she has less abdominal pain. - Physical Exam General: Alert, Oriented x3, Cooperative HEENT: Atraumatic, PERRLA, EOMI, Normocephalic Neck: Supple, No JVD, Negative Carotid Bruits Lungs: Clear to auscultation, Normal air movement, No rhonchi, No wheeze Cardiovascular: Regular rate, Regular Rhythm, Normal S1, No murmurs Abdomen: Bowel Sounds Present, Soft, Tender - Mild diffuse abdominal tenderness is noted over the mid abdominal area Extremities: No edema, Capillary Refill Less than 3 Seconds Skin: No rashes, No breakdown Musculoskeletal: No Tenderness to Palpation of Joints or Extremities Neurological: Cranial nerves II-XII grossly intact, Neuro grossly intact, Sensory exam intact to light touch and pain, Coordination normal Psych/Mental Status: Normal Affect, Appropriate, Alert and oriented to time, place, person, mood and affect Vital Signs Temp Pulse Resp BP Pulse Ox 99.7 F H 92 16 109/54 L 92 12/02/18 14:01 12/02/18 14:01 12/02/18 14:01 12/02/18 14:01 12/02/18 14:01 Oxygen Delivery Method Room Air Weight: 100.1 kg Body Mass Index (BMI) 34.5 Finger Stick Blood Glucose 98 Intake and Output for Last 24 Hours 11/30/18 12/01/18 12/02/18 23:59 23:59 23:59 Intake Total 2693 / 2693 Output Total 1000 / 1000 Balance 1693 / 1693 Laboratory Tests Past 24 Hrs 12/01/18 12/01/18 12/01/18 19:55 19:55 21:15 WBC 17.5 H RBC 4.46 Hgb 13.3 Hct 39.7 MCV 89.0 MCH 29.8 MCHC 33.5 RDW 13.8 RDW Differential 44.5 H Plt Count 349 MPV 9.6 Immature Gran % (Auto) 0.600 Neut % (Auto) 68.9 Lymph % (Auto) 14.9 L Esmeralda % (Auto) 10.1 H Eos % (Auto) 5.2 H Baso % (Auto) 0.3 Absolute Neuts (auto) 12.1 H Absolute Lymphs (auto) 2.62 Total Counted Not Reportable Differential Comment SCANNED Sodium 137 Potassium 3.6 Chloride 106 Carbon Dioxide 26.0 Anion Gap 5 BUN 11 Creatinine 0.96 Estim Creat Clear Calc 69.69 Est GFR (MDRD) Af Amer 79 Est GFR (MDRD) Non-Af 66 BUN/Creatinine Ratio 11.4 Glucose 123 H Calcium 8.5 Total Bilirubin 0.40 AST 17 ALT 33 Alkaline Phosphatase 130 H Total Protein 7.1 Albumin 3.3 Globulin 3.8 Albumin/Globulin Ratio 0.9 Urine Color Yellow Urine Clarity Sl. Cloudy Urine pH 6.[address] 1.015 Urine Protein Negative Urine Glucose (UA) Normal Urine Ketones Negative Urine Occult Blood Negative Urine Nitrite Negative Urine Bilirubin Negative Urine Urobilinogen Normal Ur Leukocyte Esterase 25 H Urine RBC 0-5 SEEN Urine WBC 0-5 SEEN Ur Squamous Epith Cells 0-5 SEEN Ur Transition Epith Cell 0 SEEN Amorphous Sediment 3+ Urine Bacteria 0 SEEN Urine Mucus 0 SEEN 12/02/18 12/02/18 05:04 05:04 WBC 15.4 H RBC 4.19 L Hgb 12.2 Hct 38.5 MCV 91.9 MCH 29.1 MCHC 31.7 L RDW 13.9 RDW Differential 45.9 H Plt Count 318 MPV 9.6 Immature Gran % (Auto) Neut % (Auto) Lymph % (Auto) Esmeralda % (Auto) Eos % (Auto) Baso % (Auto) Absolute Neuts (auto) Absolute Lymphs (auto) Total Counted Differential Comment Sodium 141 Potassium 3.7 Chloride 109 H Carbon Dioxide 24.0 Anion Gap 8 BUN 10 Creatinine 0.87 Estim Creat Clear Calc 76.90 Est GFR (MDRD) Af Amer 89 Est GFR (MDRD) Non-Af 74 BUN/Creatinine Ratio 11.5 Glucose 120 H Calcium 8.0 L Total Bilirubin AST ALT Alkaline Phosphatase Total Protein Albumin Globulin Albumin/Globulin Ratio Urine Color Urine Clarity Urine pH Ur Specific [place] Urine Protein Urine Glucose (UA) Urine Ketones Urine Occult Blood Urine Nitrite Urine Bilirubin Urine Urobilinogen Ur Leukocyte Esterase Urine RBC Urine WBC Ur Squamous Epith Cells Ur Transition Epith Cell Amorphous Sediment Urine Bacteria Urine Mucus Medical Necessity - Tobacco Use Smoking Status: Former smoker Assessment/Plan All Active Problems (Last Reviewed 03/22/18 @ 09:18 by Ngoc Dominguez) Abdominal pain (Acute) Multiple thyroid nodules (Acute) Atypical chest pain (Acute) #1 acute descending and sigmoid diverticulitis-I change the patient to oral antibiotics starting tomorrow morning, I will keep her on IV Flagyl for now. Patient will receive a dose of Omnicef tonight #2 bipolar disorder #3 rheumatoid arthritis #4 chronic asthma Code Visit Inpatient E&M: 64862 Subs Hosp L2
[2018-12-02 20:50] VITALS: BP 122/54; PULSE 91; RESP 16; TEMP 37.6; O2SAT 94
[2018-12-02] MEDS: Cefdinir 300 MG Capsule 600 MG PO (21:08)
[2018-12-02] MEDS: Ondansetron 4 MG/2 ML Vial IV (22:45)
[2018-12-03] MEDS: Morphine 2 MG/ML Syringe IV ×3 (01:24→11:44)
[2018-12-03] MEDS: 0.9% NaCl Peripheral Flush Adult/Peds IV (01:24)
[2018-12-03 02:55] VITALS: BP 129/69; PULSE 100; RESP 20; TEMP 37.3; O2SAT 92
[2018-12-03 06:00] LABS: Absolute Lymphocyte Count 2.28 X10^3/ul (0.83-4.51); Absolute Neutrophil Count 14.8 X10^3/uL (2.0-7.7); Basophil# 0.04 X10^3/uL; Basophil% 0.2 % (0-1); Eosinophil# 0.31 X10^3/uL; Eosinophils% 1.6 % (0-5); Hematocrit 37.7 % (37-47); Hemoglobin 12.1 g/dl (12.0-15.0); Lymphocyte # 2.28 X10^3/ul (4.0); Lymphocyte % 11.8 % (19-41); Mean Corp Hgb Conc 32.1 g/gl (32-36); Mean Corpuscular Hgb 29.4 pg (27.0-32.0); Mean Corpuscular Volume 91.7 fL (81-99); Mean Platelet Vol. 9.5 fl (6.2-12.0); Monocyte# 1.73 X10^3/uL; Monocyte% 8.9 % (0-10); Neutrophil # 14.83 X10^3/uL (2.7-7.7); Neutrophil % 76.8 % (47-70); Platelet Count 331 K/mm3 (150-450); RBC Distribution Width CV 13.7 % (11.6-14.6); RBC Distribution Width SD 45.7 fl (35.1-43.9); Red Blood Count 4.11 M/mm3 (4.2-5.4); White Blood Count 19.3 K/mm3 (4.4-11.0)
[2018-12-03 06:24] LABS: Differential Indicated SCAN CRITERIA MET; POSITIVE COUNT NO; POSITIVE DIFFERENTIAL YES; POSITIVE MORPHOLOGY NO
[2018-12-03 07:56] VITALS: BP 146/78; PULSE 81; RESP 18; TEMP 36.7; O2SAT 93
[2018-12-03] MEDS: 0.9% Normal Saline 1,000 ML 150 ML IV ×3 (07:56→23:56)
[2018-12-03] MEDS: Enoxaparin 40 MG/0.4 ML Syringe SC (10:41)
[2018-12-03] MEDS: Pantoprazole Sodium 40 MG Tablet PO (10:41)
[2018-12-03] MEDS: Cefdinir 300 MG Capsule 600 MG PO (10:43)
[2018-12-03 10:58] LABS: Pathologist Review Reviewed
--- NOTE | 2018-12-03 11:20 | CASEMGMT ---
BERLIN ABREU Face to Face with patient for initial transition planning/care coordination assessment. RN BRADY introduced self and role at [facility]. Patient lying in bed, alert and oriented. Patient willing to participate in assessment and is able to answer all questions appropriately. Care providers, pharmacy, and demographics verified. Patient wishes to discharge home, denies need for home health at this time. Patient states she has no further needs or concerns at this time. CM to follow for discharge planning needs that may arise. PCP: Honorio Specialists: [employer] Preferred Pharmacy: [facility] Insurance: [employer] Prescription Benefit: Yes Living Will/HPOA: None LNOK: daughter Living Arrangements: Patient lives with and 16yo daughter in a mobile home, with 5 steps and railing to enter the home. Patient states that she is mostly independent at home and only requires assistance from when her RA flares up. Transportation: DME/HHC: Patient states she has shower chair, grab bars, walker, and nebulizer at home. Patient denies home oxygen, bipap, or cpap. Patient denies previous HHC or SNF Disposition Plan: Patient to discharge home with family support and follow-up plans in place. June CAAL, RN, CM
[2018-12-03 12:58] VITALS: BP 140/88; PULSE 87; RESP 18; TEMP 37.1; O2SAT 93
--- NOTE | 2018-12-03 14:27 | NURSING ---
student nurses charting reviewed and used for educational learning purposes. claudio
--- NOTE | 2018-12-03 15:58 | PN_ITS ---
Patient Problems: Active and Suspected Problems (Last Reviewed 03/22/18 @ 09:18 by Ngoc Dominguez) Abdominal pain (Acute) Subjective: Patient was seen and examined today, she still having diffuse mid abdominal pain, patient continues to lie in bed I told her this afternoon that she needs to get up and walk around. Patient's white blood cell count today was 19.3, T- max today was 99.1. Patient wanted to try regular diet today, I placed her on a soft diet. - Physical Exam General: Alert, Oriented x3, Cooperative HEENT: Atraumatic, PERRLA, EOMI, Normocephalic Oral: Moist Mucosa Neck: Supple, Trachea Midline, Thyroid Normal Size and Texture Lungs: Clear to auscultation, Normal air movement, No rhonchi, No wheeze, No rales Cardiovascular: Regular rate, Regular Rhythm, Normal S1, Normal S2, No murmurs Abdomen: Bowel Sounds Present, Soft, Tender - Moderate abdominal tenderness is noted over the mid abdomen Extremities: No clubbing, No cyanosis, No edema, Capillary Refill Less than 3 Seconds Skin: No rashes, No breakdown Musculoskeletal: No Tenderness to Palpation of Joints or Extremities Neurological: Cranial nerves II-XII grossly intact, Neuro grossly intact, Sensory exam intact to light touch and pain, Coordination normal Psych/Mental Status: Normal Affect, Appropriate, Alert and oriented to time, place, person, mood and affect Vital Signs Temp Pulse Resp BP Pulse Ox 98.8 F 87 18 140/88 H 93 12/03/18 12:58 12/03/18 12:58 12/03/18 12:58 12/03/18 12:58 12/03/18 12:58 Oxygen Delivery Method Room Air Weight: 100.1 kg Body Mass Index (BMI) 34.5 Finger Stick Blood Glucose 98 Intake and Output for Last 24 Hours 12/01/18 12/02/18 12/03/18 23:59 23:59 23:59 Intake Total 2693 / 2693 2919 / 2919 Output Total 1000 / 1000 215 / 215 Balance 1693 / 1693 2704 / 2704 Laboratory Tests Past 24 Hrs 12/03/18 05:12 WBC 19.3 H RBC 4.11 L Hgb 12.1 Hct 37.7 MCV 91.7 MCH 29.4 MCHC 32.1 RDW 13.7 RDW Differential 45.7 H Plt Count 331 MPV 9.5 Immature Gran % (Auto) 0.700 Neut % (Auto) 76.8 H Lymph % (Auto) 11.8 L [place] % (Auto) 8.9 Eos % (Auto) 1.6 Baso % (Auto) 0.2 Absolute Neuts (auto) 14.8 H Absolute Lymphs (auto) 2.28 Total Counted Not Reportable Diff Path Review Reviewed Medical Necessity - Tobacco Use Smoking Status: Former smoker Assessment/Plan All Active Problems (Last Reviewed 03/22/18 @ 09:18 by Ngoc Dominguez) Abdominal pain (Acute) Atypical chest pain (Resolved) #1 acute descending and sigmoid diverticulitis-patient will remain on p.o. Omnicef and IV Flagyl, I changed her IV Flagyl to every 8 hours, CBC will be obtained tomorrow #2 bipolar disorder #3 rheumatoid arthritis #4 chronic asthma Code Visit Inpatient E&M: 33780 Subs Hosp L2
[2018-12-03 16:33] VITALS: BP 155/92; PULSE 93; RESP 16; TEMP 37; O2SAT 94
[2018-12-03] MEDS: Ondansetron 4 MG/2 ML Vial IV (16:35)
[2018-12-03 19:50] VITALS: BP 119/53; PULSE 90; RESP 16; TEMP 37.3; O2SAT 94
[2018-12-04 01:50] VITALS: BP 151/73; PULSE 79; RESP 20; TEMP 36.8; O2SAT 93
[2018-12-04 06:02] LABS: Absolute Lymphocyte Count 2.17 X10^3/ul (0.83-4.51); Absolute Neutrophil Count 11.4 X10^3/uL (2.0-7.7); Basophil# 0.06 X10^3/uL; Basophil% 0.4 % (0-1); Eosinophil# 0.51 X10^3/uL; Eosinophils% 3.2 % (0-5); Hematocrit 36.9 % (37-47); Hemoglobin 11.7 g/dl (12.0-15.0); Lymphocyte # 2.17 X10^3/ul (4.0); Lymphocyte % 13.7 % (19-41); Mean Corp Hgb Conc 31.7 g/gl (32-36); Mean Corpuscular Hgb 29.3 pg (27.0-32.0); Mean Corpuscular Volume 92.3 fL (81-99); Mean Platelet Vol. 9.7 fl (6.2-12.0); Monocyte# 1.23 X10^3/uL; Monocyte% 7.8 % (0-10); Neutrophil # 11.44 X10^3/uL (2.7-7.7); Neutrophil % 72.4 % (47-70); Platelet Count 338 K/mm3 (150-450); RBC Distribution Width CV 13.4 % (11.6-14.6); RBC Distribution Width SD 44.1 fl (35.1-43.9); White Blood Count 15.8 K/mm3 (4.4-11.0)
[2018-12-04 06:06] LABS: Differential Indicated SCAN CRITERIA MET; POSITIVE COUNT NO; POSITIVE DIFFERENTIAL NO; POSITIVE MORPHOLOGY YES
[2018-12-04 08:06] VITALS: BP 147/81; PULSE 84; RESP 18; TEMP 36.9; O2SAT 98
[2018-12-04] MEDS: Pantoprazole Sodium 40 MG Tablet PO (08:09)
[2018-12-04] MEDS: Enoxaparin 40 MG/0.4 ML Syringe SC (08:09)
[2018-12-04] MEDS: 0.9% Normal Saline 1,000 ML 150 ML IV (08:09)
[2018-12-04] MEDS: Cefdinir 300 MG Capsule 600 MG PO (08:09)
--- NOTE | 2018-12-04 10:09 | DCINST_ITS ---
- Discharge Diagnoses Current Active Problems: Current Active and Chronic Problems (Last Updated 12/03/18 @ 15:53 by Zander Calvillo DO) Abdominal pain (Acute) You will use the following diet at home:: No restrictions Your food should be the consistency of: Regular Your liquids should be the consistency of: Regular/Thin Discharge Activity: Return to Normal Activity Weight Bearing Status: Full weight bearing Allergies/Adverse Reactions: Allergies ciprofloxacin [From Cipro] Allergy (Verified 10/23/18 18:07) Hives ciprofloxacin HCl [From Cipro] Allergy (Verified 10/23/18 18:07) Hives Penicillins Allergy (Verified 10/23/18 18:07) Hives Sulfa (Sulfonamide Antibiotics) Allergy (Verified 10/23/18 18:07) Hives diphenhydramine HCl [From Benadryl] Adverse Reaction (Verified 12/02/18 00:38) HYPERACTIVITY Medications to take at Discharge Methotrexate Sodium/Pf [Methotrexate 25 mg/ml Vial] 1 dose IM SA 01/17/18 albuterol 90 mcg/actuation aerosol inhaler 90 mcg INHALATION .every 4 hours prn 03/12/18 etanercept 50 mg/mL (0.98 mL) subcutaneous syringe 50 mg SC SA 03/12/18 Brompheniramine/Pseudoephed/Dm [Vnfrwicajy-Ofmxwwdnhhy-Ps Syr] 5 ml PO 4X/DAY PRN PRN 12/02/18 Cefdinir [Omnicef [equiv]] 600 mg PO DAILY #14 capsule 12/04/18 Metronidazole [Flagyl] 500 mg PO TID #20 tablet 12/04/18 The following prescriptions were given: Cefdinir [Omnicef [equiv]] 600 mg PO DAILY #14 capsule Metronidazole [Flagyl] 500 mg PO TID #20 tablet Primary Care Physician: Cheli Olmedo PA [Primary Care Provider] - Please follow up with your Primary Care Physician in: in one week Test Results: Test results from this visit will be discussed in further detail at your follow- up appointment, if applicable.
[2018-12-04 10:13] LABS: Pathologist Review Reviewed
--- NOTE | 2018-12-05 18:03 | CASEMGMT ---
BERLIN ABREU Discharge Follow-up Phone Call: JOSÉ MIGUEL: 12 Strata: 4 Call Date: 12/05/18 Discharge Date: 12/04/18 Time of Call: 1800 Duration: 1 min Admitting Diagnosis: Diverticulitis BERLIN ABREU attempted to complete follow-up phone call after recent hospitalization. No answer, voice message left with return contact information.
--- NOTE | 2018-12-06 18:29 | DS.PCM_ITS ---
Discharge Date and Diagnosis Date of Admission: 12/01/18 Date of Discharge: 12/04/18 - Primary Discharge Diagnosis #1 acute descending and sigmoid diverticulitis #2 bipolar disorder #3 rheumatoid arthritis #4 chronic asthma - Secondary Discharge Diagnosis Chronic Problems (Last Updated 12/03/18 @ 15:53 by Zander Calvillo DO) Multiple thyroid nodules (Chronic) Bipolar disorder (Chronic) Rheumatoid arthritis (Chronic) Chronic stable asthma (Chronic) Hospital Course and Treatment Operations: None Procedures: None Summary of Care Provided: The patient is a 48 year old F seen in the emergency room at [facility] with a chief complaint of abdominal pain. Workup in the emergency room included a CAT scan of the abdomen and pelvis which showed descending and sigmoid diverticulitis, there is no evidence of any perforation or abscess, CBC showed an elevated white count at 17.5, patient's chemistry was remarkable for alkaline phosphatase at 130 and glucose of 123. Urinalysis was unremarkable. Patient was admitted to [place] [address], placed on IV antibiotics, and initially was n.p.o. She continued to have abdominal pain over the next 48 hours which improved with antibiotic treatment and fluids. On 12/04/18, patient was seen and examined: On examination she appeared in good health and spirits. Vital signs as documented. Skin warm and dry and without overt rashes. Neck without JVD. Lungs clear. Heart exam notable for regular rhythm, normal sounds and absence of murmurs, rubs or gallops. Abdomen-abdomen was soft, there is mild tenderness in the mid abdominal area to palpation, no rebound abdominal tenderness was noted. Extremities nonedematous. Neuro: Cranial nerves II through XII are grossly intact, no focal motor deficits were noted, sensation to light touch and pinprick is intact. Psych: Patient is alert and oriented x3, she does not appear anxious or depressed On 12/04/18, patient was seen and examined felt to be in stable condition for discharge home - Physical Exam Vital Signs Temp Pulse Resp BP Pulse Ox 98.4 F 84 18 147/81 H 98 12/04/18 08:06 12/04/18 08:06 12/04/18 08:06 12/04/18 08:06 12/04/18 08:06 Oxygen Delivery Method Room Air Weight: 100.1 kg Body Mass Index (BMI) 34.5 Finger Stick Blood Glucose 98 Intake and Output for Last 24 Hours 12/04/18 12/05/18 12/06/18 23:59 23:59 23:59 Intake Total 2886 / 2886 Output Total 1700 / 1700 Balance 1186 / 1186 Discharge Activity: Return to Normal Activity Weight Bearing Status: Full weight bearing Home Medications: Medications to take at Discharge Methotrexate Sodium/Pf [Methotrexate 25 mg/ml Vial] 1 dose IM 01/17/18 albuterol 90 mcg/actuation aerosol inhaler 90 mcg INHALATION .every 4 hours prn 03/12/18 etanercept 50 mg/mL (0.98 mL) subcutaneous syringe 50 mg SC 03/12/18 Brompheniramine/Pseudoephed/Dm [Almbjshswf-Xeaeaqahkuw-Cy Syr] 5 ml PO 4X/DAY PRN PRN 12/02/18 Cefdinir [Omnicef [equiv]] 600 mg PO DAILY #14 capsule 12/04/18 Metronidazole [Flagyl] 500 mg PO TID #20 tablet 12/04/18 Following Prescrptions Were Given to Patient: Cefdinir [Omnicef [equiv]] 600 mg PO DAILY #14 capsule Metronidazole [Flagyl] 500 mg PO TID #20 tablet Primary Care Physician: Cheli Olmedo PA [Primary Care Provider] - Please follow up with your Primary Care Physician in: in one week Please Follow Up With: Cheli Olmedo PA Disposition: Home Minutes spent on discharge:: 32 Patient Condition:: Stable Medical Necessity - Tobacco Use Smoking Status: Former smoker Meaningful Use Info Meaningful Use Diagnoses (Choose all that apply): None applicable Code Visit Inpatient E&M: 81152 Disch Hosp
== END 2018-12-04 11:43 | disposition home or self-care (01) | DRG 244 ==
LOC: ED 22:51 → MS3 12-02 00:09
PROVIDERS: Admitting Provider Family Medicine; Emergency Provider Emergency Medicine; Family Provider Physician Assistant; PCP Physician Assistant; Visit Provider Internal Medicine
DX: K57.32 Diverticulitis of large intestine without perforation or abscess without bleeding (principal); M06.9 Rheumatoid arthritis, unspecified; F31.9 Bipolar disorder, unspecified; J45.909 Unspecified asthma, uncomplicated; Z79.899 Other long term (current) drug therapy; Z87.891 Personal history of nicotine dependence
CPT/HCPCS: 36415; 74176; 76830; 80048; 80053; 81001; 85025; 85027; 93976; 99284; J7030; A4216; J2405

== ENCOUNTER 2019-02-20 03:10 | Emergency (ER) | payer MEDICAID, SELFPAY ==
[2018-12-02 00:36] VITALS: BMI 34.5
[2019-02-20 03:10] VITALS: BP 172/96; PULSE 82; RESP 18; TEMP 36.6; O2SAT 96; BMI 34.7
--- NOTE | 2019-02-20 03:34 | RAD_ITS ---
STUDY: X-RAY - UNILATERAL RIBS ( RIGHT ) WITH CHEST REASON FOR EXAM: Female, 48 years old. Pain TECHNIQUE - RIBS: 3 view(s) of the ribs. TECHNIQUE - CHEST: Single frontal view of the chest. COMPARISON: October 23, 2018 FINDINGS - RIBS: Normal visualized right ribs without a demonstrated fracture. FINDINGS - CHEST: The lungs are clear and expanded. There is no demonstrated pleural abnormality. Normal size heart. Normal mediastinum and benjamin. Normal visualized pulmonary arteries. Normal visualized aortic arch and descending thoracic aorta. Normal visualized thoracic spine. Normal visualized ribs, clavicles, and shoulders. There is no demonstrated abnormality of the visualized soft tissue structures of the upper abdomen. RAD/Ribs Uni Min 3V w/PA Chest IMPRESSION: RIBS: Normal x-ray examination of the right ribs. CHEST: Normal x-ray examination of the chest. Electronically Signed: Nile Oconnell, at 4:05 EDT Tel , Service support ,
--- NOTE | 2019-02-20 03:35 | ED.VIS.GEN ---
History of Present Illness Chief Complaint: Other, Pain/Inj Narrative: Patient is a 48-year-old female who is concerned she may have broken ribs on her right. She has had a cough for about a week. She has had some chest pain with coughing. However last night about 11 PM, 4 hours before presentation she felt something give in her right chest and then has had severe pain since that time. She is not short of breath. Her cough is nonproductive. She denies fevers or vomiting or diarrhea. Past Medical History - Allergies and Home Meds Allergies/Adverse Reactions: Allergies ciprofloxacin [From Cipro] Allergy (Verified 02/20/19 03:14) Hives ciprofloxacin HCl [From Cipro] Allergy (Verified 02/20/19 03:14) Hives Penicillins Allergy (Verified 02/20/19 03:14) Hives Sulfa (Sulfonamide Antibiotics) Allergy (Verified 02/20/19 03:14) Hives diphenhydramine HCl [From Benadryl] Adverse Reaction (Verified 02/20/19 03:14) HYPERACTIVITY Primary Care Physician: Cheli Olmedo PA [Primary Care Provider] - Past Medical History: - - Asthma Smoking Status: Former smoker - Family History Paternal Family History: Family History (Last Reviewed 03/22/18 @ 09:18 by Ngoc Dominguez) Sister Arthritis Father Heart disease Family History: Reports: Heart Disease Review of Systems All systems negative except as indicated Cardiovascular: Reports: Chest pain Respiratory: Reports: Cough. Denies: Dyspnea Physical Exam Vital Signs/Narrative: Vital Signs Temp Pulse Resp BP Pulse Ox 02/20/19 03:10 97.8 F 82 18 172/96 H 96 General: Well nourished, No Acute Distress Head: Normocephalic Eyes: EOMI ENT: Moist mucous membranes Neck: Supple Cardiovascular: Regular rate, Regular rhythm Respiratory: No distress, CTA bilaterally Abdomen: Soft, Nontender Skin: Normal color Neurological: Alert Psychological: Normal affect Diagnostic/Tx/Re-eval Clinical Impression(s) from Imaging Studies Ribs w/Chest X-Ray 02/20/19 03:34 IMPRESSION: RIBS: Normal x-ray examination of the right ribs. CHEST: Normal x-ray examination of the chest. Electronically Signed: Nile Oconnell, at 4:05 EDT Tel , Service support , - Medical Decision Making Rib series with a PA chest was normal. Patient was given IM Toradol here. She was advised on supportive care. She was discharged. ED Disposition - Plan for ED Patient: Disposition: Home or Assisted Living Diagnosis: Chest wall pain Instructions: ED Strain Chest Wall Referrals: Cheli Olmedo PA [Primary Care Provider] -
[2019-02-20] MEDS: Ketorolac 60 MG/2 ML Vial IM (03:42)
[2019-02-20 04:24] VITALS: RESP 16
== END 2019-02-20 04:25 | disposition home or self-care (01) ==
PROVIDERS: Emergency Provider Emergency Medicine; Family Provider Physician Assistant; PCP Physician Assistant
DX: R07.89 Other chest pain (principal); Z87.891 Personal history of nicotine dependence
CPT/HCPCS: 71101; 96372; 99282

== ENCOUNTER 2019-03-07 18:20 | Observation (INO) | payer MEDICAID, SELFPAY ==
[2019-03-07 18:22] VITALS: BP 133/80; PULSE 103; PULSE 98; RESP 17; TEMP 37.5; O2SAT 95; O2SAT 96; BMI 35.1
--- NOTE | 2019-03-07 18:29 | EKG12_ITS ---
Test Reason : CP ADMISSION Blood Pressure : / mmHG Vent. Rate : 077 BPM Atrial Rate : 077 BPM P-R Int : 164 ms QRS Dur : 088 ms QT Int : 384 ms P-R-T Axes : 037 -52 003 degrees QTc Int : 434 ms Normal sinus rhythm Left axis deviation Abnormal ECG When compared with ECG of 18-JAN-2018 05:27, No significant change was found Confirmed by MICHAEL ALVARADO, RENEA ([id number]), editorial writer ELIOT PHIPPS ([id number]) on 03/10/2019 8:07:14 AM Referred By: PREETHI Confirmed By:RENEA RODRIGUEZ MD
--- NOTE | 2019-03-07 18:35 | RAD_ITS ---
STUDY: X-RAY CHEST REASON FOR EXAM: Female, 48 years old. Chest pain TECHNIQUE: Single frontal view of the chest. COMPARISON: February 20, 2019 FINDINGS: The lungs are clear and expanded. There is no demonstrated pleural abnormality. Normal size heart. Normal mediastinum and benjamin. Normal visualized pulmonary arteries. Normal visualized aortic arch and descending thoracic aorta. Normal visualized thoracic spine. Normal visualized ribs, clavicles, and shoulders. There is no demonstrated abnormality of the visualized soft tissue structures of the upper abdomen. RAD/Chest 1 View (Portable) IMPRESSION: No acute cardiopulmonary process. Electronically Signed: Abi Santoyo MD at 19:12 EDT Tel , Service support ,
[2019-03-07 18:37] LABS: Absolute Lymphocyte Count 4.17 X10^3/ul (0.83-4.51); Absolute Neutrophil Count 7.8 X10^3/uL (2.0-7.7); Basophil# 0.04 X10^3/uL; Basophil% 0.3 % (0-1); Eosinophil# 0.89 X10^3/uL; Eosinophils% 6.4 % (0-5); Hematocrit 40.4 % (37-47); Hemoglobin 13.7 g/dl (12.0-15.0); Lymphocyte # 4.17 X10^3/ul (4.0); Lymphocyte % 30.1 % (19-41); Mean Corp Hgb Conc 33.9 g/gl (32-36); Mean Corpuscular Hgb 29.5 pg (27.0-32.0); Mean Corpuscular Volume 86.9 fL (81-99); Mean Platelet Vol. 9.9 fl (6.2-12.0); Monocyte# 0.88 X10^3/uL; Monocyte% 6.4 % (0-10); Neutrophil # 7.81 X10^3/uL (2.7-7.7); Neutrophil % 56.4 % (47-70); Platelet Count 341 K/mm3 (150-450); RBC Distribution Width CV 14.3 % (11.6-14.6); Red Blood Count 4.65 M/mm3 (4.2-5.4); White Blood Count 13.9 K/mm3 (4.4-11.0)
[2019-03-07 18:39] LABS: POSITIVE COUNT NO; POSITIVE DIFFERENTIAL NO; POSITIVE MORPHOLOGY NO
[2019-03-07 18:56] LABS: Anion Gap 5 (5-15); BUN 7 mg/dL (7-18); BUN/Creat Ratio 6.3 RATIO (10-20); Calcium,Total 8.4 mg/dL (8.5-10.1); Chloride 106 mmol/L (98-107); Creatinine, Serum 1.11 mg/dL (0.55-1.02); EST Glomerular Filtration Rate 56 mL/min (>60); Est Glom Filt Rate - Afr Amer 67 mL/min (>60); Estimated Creatinine Clearance 60.27 ml/min; Glucose 189 mg/dL (74-106); Potassium 3.6 mmol/L (3.5-5.1); Sodium Level 138 mmol/L (136-145)
--- NOTE | 2019-03-07 19:27 | EKG12_ITS ---
Test Reason : REPEAT Blood Pressure : / mmHG Vent. Rate : 085 BPM Atrial Rate : 085 BPM P-R Int : 170 ms QRS Dur : 084 ms QT Int : 370 ms P-R-T Axes : 041 -63 014 degrees QTc Int : 440 ms Normal sinus rhythm Left axis deviation Possible Anterior infarct , age undetermined Abnormal ECG Confirmed by JAQUAN MORRELL ([id number]), film editor ELIOT PHIPPS ([id number]) on 03/11/2019 1:55:32 PM Referred By: MAKI Confirmed By:JAQUAN MORRELL
--- NOTE | 2019-03-07 19:28 | ED.DCSUM_ITS ---
- ER Visit Summary Date of Service: 03/07/19 Chief Complaint: Chest discomfort History of Present Illness: The patient is a 48 F history of rheumatoid arthritis and fibromyalgia. No prior cardiac history. Patient states last evening she started having sternal chest discomfort. Describes it intermittent. At times sharp at times heavy. She said it feels like she was punched in the chest. Mild dyspnea. No hemoptysis. No chest pain. Denies fever chills or cough. No history of prior DVT or PE. No hemoptysis nor any calf pain or swelling. No recent travel, surgery or immobilization. He denies ever having a stress test or a prior heart catheterization. No significant family history of either clotting disorder, DVT or PE or cardiac disease. She has had no recent exertional symptoms. Physical Examination: Middle-aged female. Vital signs are stable afebrile. Pulse ox 96% on room air no hypoxia. H EENT exam unremarkable. Neck nontender. Lungs clear to auscultation bilaterally. Heart regular rate and rhythm no murmur. Chest wall mild parasternal tenderness. No ecchymosis or bruising. No subcu air crepitance. No signs of trauma. No bony deformity. Abdomen soft and nontender. Normal bowel sounds no peritoneal signs. She is moving all 4 extremities. Calves are nontender without edema or cords. She has equal symmetrical radial pulses. Normal experimental mechanic electrical strength. Normal dorsi and plantar flexion. Neurologically she is awake and alert with no focal motor deficits. Back is nontender. Test Results: EKG shows a sinus rhythm rate of 93 with no acute signs of [place] or ischemia. Portable chest x-ray one view shows no acute abnormality read by myself. Normal cardiac silhouette and mediastinum. CBC shows a white count of 13.9. Hemoglobin 13. No bands. Chemistries unremarkable glucose 189 normal gap troponin normal at less than 0.015. Emergency Department Course and Treatment: Repeat exam patient doing well and 1933. Patient was given sublingual nitro again by us and again because of the significant relief. This also occurred when she was given sublingual nitro by the squad. Treatment Plan: Patient's pain is atypical. There is a reproducible component. However with the relief of the nitro I do think she warrants admission and stress testing. Disposition: Discharge Impression: Acute chest pain of uncertain etiology This note was generated with Sclobyation software. It may contain incorrect words, spelling, and punctuation that were not noted in review of the chart prior to signing ED Disposition - Plan for ED Patient: Disposition: Home or Assisted Living Instructions: CHEST PAIN, Uncertain Cause Referrals: Cheli Olmedo PA [Primary Care Provider] - As soon as possible Additional Instructions: He has chest pain I think some of his chest wall pain. Your tests were normal. To be safe I think we should do outpatient stress test. Please follow-up with your primary care provider in the next several days to have that set up this week if possible. Daily aspirin. Motrin and ice to chest wall to decrease discomfort ER feeling worse such as increasing pain, pain radiating to your left arm or jaw, shortness of breath or breaking out in sweat.
--- NOTE | 2019-03-07 19:37 | ED.DEP ---
ED Disposition - Plan for ED Patient: Disposition: Home or Assisted Living Instructions: CHEST PAIN, Uncertain Cause Referrals: Cheli Olmedo PA [Primary Care Provider] - As soon as possible Additional Instructions: He has chest pain I think some of his chest wall pain. Your tests were normal. To be safe I think we should do outpatient stress test. Please follow-up with your primary care provider in the next several days to have that set up this week if possible. Daily aspirin. Motrin and ice to chest wall to decrease discomfort ER feeling worse such as increasing pain, pain radiating to your left arm or jaw, shortness of breath or breaking out in sweat.
[2019-03-07] MEDS: Nitroglycerin SL (ED/IMG/CATH) 0.4 MG TABLET SUBLINGUAL (19:59)
--- NOTE | 2019-03-07 20:45 | HP.PCM_ITS ---
Problem List (1) Chest pain Status: Acute History of Present Illness Date of Admission: 03/07/19 Chief Complaint: chest Pain The patient is a 48 year old F with a significant history of former smoker; fibromyalgia; asthma; and rheumatoid arthritis who presented to the emergency department with 1 day history of episodic left-sided chest pain. She reported pain as 7 out of 10. She reports some forgetfulness and as such she does not remember that she vo mited. However she reported that per her she vomited. She denies diaphoresis. Her chest pain increases with exertion. She received some improvement for chest pain with administration of nitroglycerin. Past Medical History Past Medical History (Chronic Problems): Chronic Problems (Last Reviewed 03/07/19 @ 21:37 by Osorio Francisco MD) Multiple thyroid nodules (Chronic) Bipolar disorder (Chronic) Rheumatoid arthritis (Chronic) Chronic stable asthma (Chronic) Medical History: Medical History (Last Reviewed 03/07/19 @ 21:37 by Osorio Francisco MD) Multiple thyroid nodules (Chronic) E04.2 Atypical chest pain (Resolved) R07.89 Bipolar disorder (Chronic) F31.9 Rheumatoid arthritis (Chronic) M06.9 Chronic stable asthma (Chronic) Thyroid nodule E04.1 Allergies ciprofloxacin [From Cipro] Allergy (Verified 03/07/19 18:21) Hives ciprofloxacin HCl [From Cipro] Allergy (Verified 03/07/19 18:21) Hives Penicillins Allergy (Verified 03/07/19 18:21) Hives Sulfa (Sulfonamide Antibiotics) Allergy (Verified 03/07/19 18:21) Hives diphenhydramine HCl [From Benadryl] Adverse Reaction (Verified 03/07/19 18:21) HYPERACTIVITY Home Medications: Ambulatory Orders Medication Instructions Recorded Methotrexate Sodium/Pf 1 dose IM QWEEK 01/17/18 [Methotrexate 25 mg/ml Vial] albuterol 90 mcg/actuation aerosol 90 mcg INHALATION .every 4 hours 03/12/18 inhaler prn etanercept 50 mg/mL (0.98 mL) 50 mg SC QWEEK 03/12/18 subcutaneous syringe cycloBENZAPRine HCl [Flexeril] 10 mg PO TID PRN PRN 02/20/19 Surgical History: Surgical History (Last Reviewed 03/07/19 @ 21:37 by Osorio Francisco MD) History of Z98.891 History of tubal ligation Z98.51 Surgical History: - - She had a toothpick removed from her feet. Lives: With Family Smoking Status: Former smoker - *Family History Paternal Family History: Family History (Last Updated 03/07/19 @ 21:38 by Osorio Francisco MD) Sister Arthritis Father Heart disease Mother Cancer Grandmother Cancer History Items: Heart Disease Maternal Family History: Family History (Last Updated 03/07/19 @ 21:38 by Osorio Francisco MD) Sister Arthritis Father Heart disease Mother Cancer Grandmother Cancer Review of Systems Constitutional: Denies: Chills, Fever, Weight Change HEENT: Denies: Head Aches, Sinus Congestion, Sinus Drainage Cardiovascular: Reports: Chest Pain. Denies: Palpitations Respiratory: Denies: Cough, Shortness of breath at rest, Sputum production Gastrointestinal: Reports: Vomiting. Denies: Abdominal Pain Genitourinary: Denies: Dysuria Musculoskeletal: Denies: Joint Pain, Joint Tenderness Skin: Denies: Rash, Wounds Neurological: Denies: Numbness, Tingling, Focal weakness Psychiatric: Denies: Anxiety, Depression, Homicidal Ideations, Suicidal Ideations Hematologic/ Lymphatic: Denies: Easy Bruising, Easy Bleeding VTE Information - Inpt Only VTE Present on Admission: No VTE Mechan Device Prophylaxis: None VTE Pharm Prophylaxis ordered?: Yes Patient Problems: Active and Suspected Problems (Last Reviewed 03/07/19 @ 21:37 by Osorio Francisco MD) Chest pain (Acute) - Physical Exam General: Alert, Oriented x3, Cooperative HEENT: Atraumatic, PERRLA, EOMI, Normocephalic Neck: Supple, No JVD, Negative Carotid Bruits Lungs: Normal air movement, Wheezes - Mild wheezes, - - Tender chest Cardiovascular: Regular rate, No murmurs Abdomen: Bowel Sounds Present, Soft, Non Tender Extremities: No edema, Capillary Refill Less than 3 Seconds Skin: No rashes, No breakdown Musculoskeletal: No Tenderness to Palpation of Joints or Extremities Neurological: Cranial nerves II-XII grossly intact Psych/Mental Status: Normal Affect, Appropriate Vital Signs Temp Pulse Resp BP Pulse Ox 99.5 F H 103 H 17 133/80 H 96 03/07/19 18:22 03/07/19 18:22 03/07/19 18:22 03/07/19 18:22 03/07/19 18:22 Oxygen Flow Rate (L/min) 2 Oxygen Delivery Method Nasal Cannula Weight: 101.8 kg Body Mass Index (BMI) 35.1 Finger Stick Blood Glucose 98 Laboratory Tests Past 24 Hrs 03/07/19 03/07/19 18:25 18:25 WBC 13.9 H RBC 4.65 Hgb 13.7 Hct 40.4 MCV 86.9 MCH 29.5 MCHC 33.9 RDW 14.3 RDW Differential 45.0 H Plt Count 341 MPV 9.9 Immature Gran % (Auto) 0.400 Neut % (Auto) 56.4 Lymph % (Auto) 30.1 [place] % (Auto) 6.4 Eos % (Auto) 6.4 H Baso % (Auto) 0.3 Absolute Neuts (auto) 7.8 H Absolute Lymphs (auto) 4.17 Total Counted Not Reportable Sodium 138 Potassium 3.6 Chloride 106 Carbon Dioxide 27.0 Anion Gap 5 BUN 7 Creatinine 1.11 H Estim Creat Clear Calc 60.27 Est GFR (MDRD) Af Amer 67 Est GFR (MDRD) Non-Af 56 L BUN/Creatinine Ratio 6.3 L Glucose 189 H Calcium 8.4 L Troponin I < 0.015 Assessment/Plan All Active Problems (Last Reviewed 03/07/19 @ 21:37 by Osorio Francisco MD) Chest pain (Acute) Abdominal pain (Acute) Atypical chest pain (Resolved) The patient is a 48 year old F with a significant history of former smoker; fibromyalgia; asthma; and rheumatoid arthritis who presented to the emergency department with 1 day history of episodic left-sided chest pain appears to have some musculoskeletal component yet improved with nitroglycerin. Chest pain Admit to a monitored bed on PCU CXR independently reviewed confirms no acute cardiopulmonary process. EKG independently reviewed confirms Q waves in anterior leads; and left axis deviation. Old records reviewed showed that EKG is unchanged from previous. ASA 81 mg p.o. daily SL NTG 0.4 mg prn as needed for chest pain We will check lipid panel. High intensity statin started Serial cardiac enzymes Stat EKG as needed for chest pain Check A1c. Supplement potassium. Trend BMP. Chemical stress test in the am of 03/09/2019 if the cardiac enzymes are negative Fibromyalgia Flexeril as needed continued Rheumatoid arthritis On home Aricept and methotrexate. Continue while outpatient. Asthma Stable PRN Albuterol continued. DVT prophylaxis Subcutaneous Lovenox Code Visit OBSV E&M: [id number] Initial observation care L3
[2019-03-07 21:28] VITALS: PULSE 88; RESP 18; O2SAT 97
[2019-03-07 21:45] VITALS: BMI 34.1
[2019-03-07 21:46] VITALS: BP 146/68; PULSE 83; RESP 20; TEMP 36.6; O2SAT 95
[2019-03-07 21:49] VITALS: BP 135/71
--- NOTE | 2019-03-07 22:03 | EKG12_ITS ---
Test Reason : CP Blood Pressure : / mmHG Vent. Rate : 093 BPM Atrial Rate : 093 BPM P-R Int : 170 ms QRS Dur : 082 ms QT Int : 358 ms P-R-T Axes : 048 -78 041 degrees QTc Int : 445 ms Normal sinus rhythm Left axis deviation Anterior infarct , age undetermined Abnormal ECG Confirmed by JAQUAN MORRELL ([id number]), script editor ELIOT PHIPPS ([id number]) on 03/11/2019 1:55:53 PM Referred By: MAKI/ALEXANDER Confirmed By:JAQUAN MORRELL
[2019-03-07 22:05] VITALS: BMI 34.1
[2019-03-07 22:41] VITALS: O2SAT 97
[2019-03-07] MEDS: cycloBENZAPRine HCl 10 MG Tablet PO (22:54)
[2019-03-07] MEDS: Atorvastatin Calcium 80 MG Tablet PO (22:54)
[2019-03-07 22:59] VITALS: PULSE 80
[2019-03-07 23:44] LABS: Hemoglobin A1c 7.2 % (4.2-6.3)
[2019-03-08] VITALS (9 sets, daily range): BP systolic 121–140; BP diastolic 65–89; PULSE 76–94; RESP 16–18; TEMP 36.6–36.8; O2SAT 94–96
[2019-03-08 04:44] LABS: Anion Gap 10 (5-15); BUN 10 mg/dL (7-18); Calcium,Total 8.2 mg/dL (8.5-10.1); Chloride 107 mmol/L (98-107); Cholesterol 161 mg/dL (200); Creatinine, Serum 0.83 mg/dL (0.55-1.02); EST Glomerular Filtration Rate 78 mL/min (>60); Est Glom Filt Rate - Afr Amer 94 mL/min (>60); Estimated Creatinine Clearance 80.61 ml/min; Glucose 173 mg/dL (74-106); High Density Lipoprotein 26 mg/dL; Potassium 4.1 mmol/L (3.5-5.1); Sodium Level 139 mmol/L (136-145); Triglycerides 255 mg/dL; Very Low Density Lipoprotein 51 mg/dL (5-40)
[2019-03-08] MEDS: Aspirin E.C. 81 MG Tablet PO (07:37)
--- NOTE | 2019-03-08 13:13 | PN_ITS ---
<Fatoumata Corona - Last Filed: 03/08/19 13:24> Patient Problems: Active and Suspected Problems (Last Reviewed 03/07/19 @ 21:37 by Osorio Francisco MD) Chest pain (Acute) Subjective: Patient seen and examined. Denies further chest pain. Patient is a poor historian. Unsure if she has had stress test in the past. Patient reports she was resting at home when she developed sudden stabbing chest pain. She denies further chest pain since that time. - Physical Exam General: Alert, Oriented x3, Cooperative HEENT: Atraumatic, PERRLA, EOMI, Normocephalic Neck: Supple, No JVD, Negative Carotid Bruits Lungs: Clear to auscultation, Normal air movement Cardiovascular: Regular rate, Regular Rhythm, Normal S1, Normal S2, No murmurs Abdomen: Bowel Sounds Present, Soft, Non Tender, Non-Distended Extremities: No clubbing, No cyanosis, No edema, Capillary Refill Less than 3 Seconds Skin: No rashes, No breakdown Musculoskeletal: No Tenderness to Palpation of Joints or Extremities Neurological: Cranial nerves II-XII grossly intact, Neuro grossly intact Psych/Mental Status: Normal Affect, Appropriate Vital Signs Temp Pulse Resp BP Pulse Ox 98.3 F 90 18 140/89 H 96 03/08/19 09:27 03/08/19 09:27 03/08/19 09:27 03/08/19 09:27 03/08/19 09:27 Oxygen Flow Rate (L/min) 2 Oxygen Delivery Method Room Air Weight: 218 lb 0.595 oz Body Mass Index (BMI) 34.1 Finger Stick Blood Glucose 98 Intake and Output for Last 24 Hours 03/06/19 03/07/19 03/08/19 23:59 23:59 23:59 Intake Total 480 / 480 300 / 300 Balance 480 / 480 300 / 300 Laboratory Tests Past 24 Hrs 03/07/19 03/07/19 03/07/19 18:25 18:25 18:25 WBC 13.9 H RBC 4.65 Hgb 13.7 Hct 40.4 MCV 86.9 MCH 29.5 MCHC 33.9 RDW 14.3 RDW Differential 45.0 H Plt Count 341 MPV 9.9 Immature Gran % (Auto) 0.400 Neut % (Auto) 56.4 Lymph % (Auto) 30.1 [place] % (Auto) 6.4 Eos % (Auto) 6.4 H Baso % (Auto) 0.3 Absolute Neuts (auto) 7.8 H Absolute Lymphs (auto) 4.17 Total Counted Not Reportable Sodium 138 Potassium 3.6 Chloride 106 Carbon Dioxide 27.0 Anion Gap 5 BUN 7 Creatinine 1.11 H Estim Creat Clear Calc 60.27 Est GFR (MDRD) Af Amer 67 Est GFR (MDRD) Non-Af 56 L BUN/Creatinine Ratio 6.3 L Glucose 189 H Hemoglobin A1c 7.2 H Calcium 8.4 L Troponin I < 0.015 Triglycerides Cholesterol LDL Cholesterol VLDL Cholesterol HDL Cholesterol 03/07/19 03/08/19 03/08/19 21:55 00:30 03:35 WBC RBC Hgb Hct MCV MCH MCHC RDW RDW Differential Plt Count MPV Immature Gran % (Auto) Neut % (Auto) Lymph % (Auto) [place] % (Auto) Eos % (Auto) Baso % (Auto) Absolute Neuts (auto) Absolute Lymphs (auto) Total Counted Sodium Potassium Chloride Carbon Dioxide Anion Gap BUN Creatinine Estim Creat Clear Calc Est GFR (MDRD) Af Amer Est GFR (MDRD) Non-Af BUN/Creatinine Ratio Glucose Hemoglobin A1c Calcium Troponin I < 0.015 < 0.015 < 0.015 Triglycerides Cholesterol LDL Cholesterol VLDL Cholesterol HDL Cholesterol 03/08/19 03:35 WBC RBC Hgb Hct MCV MCH MCHC RDW RDW Differential Plt Count MPV Immature Gran % (Auto) Neut % (Auto) Lymph % (Auto) [place] % (Auto) Eos % (Auto) Baso % (Auto) Absolute Neuts (auto) Absolute Lymphs (auto) Total Counted Sodium 139 Potassium 4.1 Chloride 107 Carbon Dioxide 22.0 Anion Gap 10 BUN 10 Creatinine 0.83 Estim Creat Clear Calc 80.61 Est GFR (MDRD) Af Amer 94 Est GFR (MDRD) Non-Af 78 BUN/Creatinine Ratio 12.0 Glucose 173 H Hemoglobin A1c Calcium 8.2 L Troponin I Triglycerides 255 H Cholesterol 161 LDL Cholesterol 84 VLDL Cholesterol 51 H HDL Cholesterol 26 L Medical Necessity - Tobacco Use Smoking Status: Former smoker Tobacco Use: Cigarettes Assessment/Plan All Active Problems (Last Reviewed 03/07/19 @ 21:37 by Osorio Francisco MD) Chest pain (Acute) Abdominal pain (Acute) Atypical chest pain (Resolved) 1. Atypical chest pain-EKG without acute ischemia. Troponin negative. Chest x- ray without acute process. Plan for stress test in a.m. 2. New diagnosis type 2 diabetes mellitus-hemoglobin A1c 7.2%. Initiate Accu- Cheks ACHS with sliding scale insulin. Recommend metformin oral regimen at discharge. 3. Hyperlipidemia-not previously on regimen. Initiated on statin. 4. Mild elevated creatinine secondary to mild dehydration-resolved. 5. Fibromyalgia-PRN Flexeril regimen. 6. Rheumatoid arthritis-continue home Aricept and methotrexate regimen. 7. Chronic asthma-no acute exacerbation. As needed albuterol aerosol. DVT prophylaxis-Lovenox subcu This patient was seen by TRAY Alaniz under the supervision of Dr. Jennifer giron. <Jun Hewitt - Last Filed: 03/08/19 16:11> Subjective: Patient has history of anxiety and had similar kind of chest pain about 3 years ago which resolved itself. Complain of stabbing chest pain that lasted for 5 to 10 minutes. - Physical Exam General: Alert, Oriented x3, Cooperative HEENT: Atraumatic, PERRLA, EOMI, Normocephalic Neck: Supple, No JVD, Negative Carotid Bruits Lungs: Clear to auscultation, Normal air movement, No rhonchi, No wheeze, No rales Cardiovascular: Regular rate, Regular Rhythm, Normal S1, Normal S2, No murmurs Abdomen: Bowel Sounds Present, Soft, Non Tender, Non-Distended Extremities: No edema, Capillary Refill Less than 3 Seconds Skin: No rashes, No breakdown Musculoskeletal: No Tenderness to Palpation of Joints or Extremities Lymphatic: No Cervical, Supraclavicular, or Inguinal Adenopathy Neurological: Cranial nerves II-XII grossly intact, Deep Tendon Reflexes 2+/4 and Symmetrical, Neuro grossly intact, Motor Exam 5/5 strength throughout Psych/Mental Status: Normal Affect, Appropriate Vital Signs Temp Pulse Resp BP Pulse Ox 98.0 F 91 18 139/80 H 96 03/08/19 15:27 03/08/19 15:27 03/08/19 15:27 03/08/19 15:27 03/08/19 15:27 Oxygen Flow Rate (L/min) 2 Oxygen Delivery Method Room Air Weight: 218 lb 0.595 oz Body Mass Index (BMI) 34.1 Finger Stick Blood Glucose 98 Intake and Output for Last 24 Hours 03/06/19 03/07/19 03/08/19 23:59 23:59 23:59 Intake Total 480 / 480 300 / 300 Balance 480 / 480 300 / 300 Laboratory Tests Past 24 Hrs 03/07/19 03/07/19 03/07/19 18:25 18:25 18:25 WBC 13.9 H RBC 4.65 Hgb 13.7 Hct 40.4 MCV 86.9 MCH 29.5 MCHC 33.9 RDW 14.3 RDW Differential 45.0 H Plt Count 341 MPV 9.9 Immature Gran % (Auto) 0.400 Neut % (Auto) 56.4 Lymph % (Auto) 30.1 [place] % (Auto) 6.4 Eos % (Auto) 6.4 H Baso % (Auto) 0.3 Absolute Neuts (auto) 7.8 H Absolute Lymphs (auto) 4.17 Total Counted Not Reportable Sodium 138 Potassium 3.6 Chloride 106 Carbon Dioxide 27.0 Anion Gap 5 BUN 7 Creatinine 1.11 H Estim Creat Clear Calc 60.27 Est GFR (MDRD) Af Amer 67 Est GFR (MDRD) Non-Af 56 L BUN/Creatinine Ratio 6.3 L Glucose 189 H Hemoglobin A1c 7.2 H Calcium 8.4 L Troponin I < 0.015 Triglycerides Cholesterol LDL Cholesterol VLDL Cholesterol HDL Cholesterol 03/07/19 03/08/19 03/08/19 21:55 00:30 03:35 WBC RBC Hgb Hct MCV MCH MCHC RDW RDW Differential Plt Count MPV Immature Gran % (Auto) Neut % (Auto) Lymph % (Auto) [place] % (Auto) Eos % (Auto) Baso % (Auto) Absolute Neuts (auto) Absolute Lymphs (auto) Total Counted Sodium Potassium Chloride Carbon Dioxide Anion Gap BUN Creatinine Estim Creat Clear Calc Est GFR (MDRD) Af Amer Est GFR (MDRD) Non-Af BUN/Creatinine Ratio Glucose Hemoglobin A1c Calcium Troponin I < 0.015 < 0.015 < 0.015 Triglycerides Cholesterol LDL Cholesterol VLDL Cholesterol HDL Cholesterol 03/08/19 03:35 WBC RBC Hgb Hct MCV MCH MCHC RDW RDW Differential Plt Count MPV Immature Gran % (Auto) Neut % (Auto) Lymph % (Auto) [place] % (Auto) Eos % (Auto) Baso % (Auto) Absolute Neuts (auto) Absolute Lymphs (auto) Total Counted Sodium 139 Potassium 4.1 Chloride 107 Carbon Dioxide 22.0 Anion Gap 10 BUN 10 Creatinine 0.83 Estim Creat Clear Calc 80.61 Est GFR (MDRD) Af Amer 94 Est GFR (MDRD) Non-Af 78 BUN/Creatinine Ratio 12.0 Glucose 173 H Hemoglobin A1c Calcium 8.2 L Troponin I Triglycerides 255 H Cholesterol 161 LDL Cholesterol 84 VLDL Cholesterol 51 H HDL Cholesterol 26 L Assessment/Plan This patient was seen in conjunction with Fatoumata RODRIGUEZ. I have independently interviewed and examined the patient and reviewed pertinent history, examination findings, laboratory and plan of management. I have reviewed the note and agree with the documented findings with the few additional points. In brief, patient is admitted for atypical chest pain. EKG shows normal sinus rhythm with LAD at 77 bpm. Serial troponin enzymes are negative. Plan for Lexiscan nuclear stress test tomorrow morning. Patient has fibromyalgia and feels like she will not be able to walk on treadmill. Patient also a new diagnosis type II.is mellitus with A1c 7.2% as mentioned above. I have discussed my assessment with Fatoumata RODRIGUEZ and orders have been reviewed. Code Visit OBSV E&M: [id number] Subsequent observation care L2
[2019-03-08] MEDS: 0.9% NaCl Peripheral Flush Adult/Peds IV (13:29)
[2019-03-08] MEDS: Insulin Lispro 100 UNIT/ML INSULN.PEN SC ×2 (16:31→21:05)
[2019-03-08 16:36] LABS: Bedside Glucose 153 mg/dL (70-110)
[2019-03-08] MEDS: cycloBENZAPRine HCl 10 MG Tablet PO (18:31)
--- NOTE | 2019-03-08 20:49 | NURSING ---
This RN is taking over patient care at this time.
[2019-03-08] MEDS: Atorvastatin Calcium 80 MG Tablet PO (21:05)
[2019-03-08 21:46] LABS: Bedside Glucose 178 mg/dL (70-110)
[2019-03-09 02:54] VITALS: BP 136/75; PULSE 74; RESP 18; TEMP 36.7; O2SAT 92
[2019-03-09 02:58] VITALS: PULSE 75
[2019-03-09 05:17] VITALS: BP 119/74; PULSE 85; RESP 16; TEMP 36.7; O2SAT 94
[2019-03-09] MEDS: Aspirin E.C. 81 MG Tablet PO (05:17)
--- NOTE | 2019-03-09 05:55 | EKG12_ITS ---
Test Reason : AM EKG Blood Pressure : / mmHG Vent. Rate : 084 BPM Atrial Rate : 084 BPM P-R Int : 164 ms QRS Dur : 084 ms QT Int : 388 ms P-R-T Axes : 037 -31 015 degrees QTc Int : 458 ms Normal sinus rhythm Left axis deviation Abnormal ECG When compared with ECG of 07-MAR-2019 21:59, MANUAL COMPARISON REQUIRED, DATA IS UNCONFIRMED Confirmed by MICHAEL ALVARADO, RENEA ([id number]), editor city ELIOT PHIPPS ([id number]) on 03/10/2019 7:50:47 AM Referred By: DR SWAIN Confirmed By:RENEA RODRIGUEZ MD
[2019-03-09 06:00] LABS: International Normalized Ratio 1.1; Prothrombin Time (Protime)PT. 14.1 SECONDS (11.7-14.9)
[2019-03-09 06:01] LABS: Partial Thromboplast Time 28.7 Seconds (24.1-36.2)
[2019-03-09 06:04] LABS: Anion Gap 9 (5-15); BUN 11 mg/dL (7-18); BUN/Creat Ratio 13.1 RATIO (10-20); Calcium,Total 8.1 mg/dL (8.5-10.1); Chloride 107 mmol/L (98-107); Creatinine, Serum 0.84 mg/dL (0.55-1.02); EST Glomerular Filtration Rate 77 mL/min (>60); Est Glom Filt Rate - Afr Amer 93 mL/min (>60); Estimated Creatinine Clearance 79.65 ml/min; Glucose 138 mg/dL (74-106); Potassium 3.8 mmol/L (3.5-5.1); Sodium Level 140 mmol/L (136-145)
[2019-03-09 06:10] LABS: Absolute Lymphocyte Count 3.81 X10^3/ul (0.83-4.51); Absolute Neutrophil Count 7.8 X10^3/uL (2.0-7.7); Basophil# 0.04 X10^3/uL; Basophil% 0.3 % (0-1); Eosinophil# 1.07 X10^3/uL; Eosinophils% 7.8 % (0-5); Hematocrit 38.5 % (37-47); Hemoglobin 12.7 g/dl (12.0-15.0); Lymphocyte # 3.81 X10^3/ul (4.0); Lymphocyte % 27.7 % (19-41); Mean Corpuscular Hgb 28.9 pg (27.0-32.0); Mean Corpuscular Volume 87.5 fL (81-99); Monocyte# 0.94 X10^3/uL; Monocyte% 6.8 % (0-10); Neutrophil # 7.75 X10^3/uL (2.7-7.7); Neutrophil % 56.5 % (47-70); Platelet Count 284 K/mm3 (150-450); RBC Distribution Width CV 14.3 % (11.6-14.6); RBC Distribution Width SD 45.2 fl (35.1-43.9); White Blood Count 13.7 K/mm3 (4.4-11.0)
[2019-03-09 06:16] LABS: POSITIVE COUNT NO; POSITIVE DIFFERENTIAL NO; POSITIVE MORPHOLOGY NO
[2019-03-09 06:36] LABS: Bedside Glucose 138 mg/dL (70-110)
[2019-03-09 07:27] VITALS: PULSE 77
[2019-03-09 07:38] VITALS: O2SAT 97
[2019-03-09 10:24] VITALS: BP 120/61; PULSE 85; RESP 16; TEMP 37.1; O2SAT 94
--- NOTE | 2019-03-09 11:23 | STRESSREP ---
Stress Test Report Pharmacologic myocardial perfusion stress test. 48-year-old lady with a history of chest pain. Resting EKG demonstrates normal sinus rhythm with a rate of 83 bpm normal intervals are noted resting blood pressures 132/100 mmHg. 0.4 mg of regadenoson was infused per usual protocol followed by rapid intravenous saline flush injection continuous EKG monitoring was performed. The maximum heart rate attained was 104 bpm which was 60% of maximum predicted heart rate the maximum workload was 1 metabolic equivalent. At rest there were no ST or T wave changes noted suggest abnormal flow reserve at peak infusion nonspecific ST-T wave changes were noted. The resting blood pressures 132/100 mmHg with a peak blood pressure 136/86 mmHg. Myocardial perfusion protocol. 0.4 mg of regadenoson was infused per usual protocol 14.0 mCi of technetium 99m sestamibi was injected at rest. At peak infusion 44.2 mCi of technetium 99m sestamibi was injected stress images were obtained stress and rest images were reconstructed in comparing the short axis vertical and horizontal long axis. Gated images were also obtained Perfusion SPECT analysis: Review of the stress images demonstrate normal uptake of tracer noted in all areas of the myocardium. The resting images similarly demonstrate normal uptake of tracer noted in all the rest of the myocardium. No areas of reversibility are noted suggest ischemia no previous infarct is noted. Gated SPECT analysis: The gated ejection fraction is noted to be 84%. Conclusion: Normal pharmacologic myocardial perfusion stress test. Preserved ejection fraction.
--- NOTE | 2019-03-09 11:47 | PCM.DC ---
- Discharge Diagnoses Current Active Problems: Current Active and Chronic Problems (Last Reviewed 03/07/19 @ 21:37 by Osorio Francisco MD) Chest pain (Acute) You will use the following diet at home:: Calorie/Carbohydrate Controlled (specify 1200, 1400, etc), Cardiac Discharge Activity: Return to Normal Activity Call your doctor if you observe: Shortness of breath, Dizziness, Fainting spells, Chest pain Instructions: CHEST PAIN, Uncertain Cause Allergies/Adverse Reactions: Allergies ciprofloxacin [From Cipro] Allergy (Verified 03/07/19 22:13) Hives ciprofloxacin HCl [From Cipro] Allergy (Verified 03/07/19 22:13) Hives Penicillins Allergy (Verified 03/07/19 22:13) Hives Sulfa (Sulfonamide Antibiotics) Allergy (Verified 03/07/19 22:13) Hives diphenhydramine HCl [From Benadryl] Adverse Reaction (Verified 03/07/19 22:13) HYPERACTIVITY Medications to take at Discharge Methotrexate Sodium/Pf [Methotrexate 25 mg/ml Vial] 1 dose IM QWEEK 01/17/18 albuterol 90 mcg/actuation aerosol inhaler 90 mcg INHALATION .every 4 hours prn 03/12/18 etanercept 50 mg/mL (0.98 mL) subcutaneous syringe 50 mg SC QWEEK 03/12/18 cycloBENZAPRine HCl [Flexeril] 10 mg PO TID PRN PRN 02/20/19 Atorvastatin Calcium [Lipitor] 20 mg PO QHS #30 tab 03/09/19 metFORMIN (XR) [Glucophage Xr] 500 mg PO DAILY #30 tab 03/09/19 The following prescriptions were given: metFORMIN (XR) [Glucophage Xr] 500 mg PO DAILY #30 tab Transmission Status: Pending to [facility] Atorvastatin Calcium [Lipitor] 20 mg PO QHS #30 tab Transmission Status: Pending to [facility] Primary Care Physician: Cheli Olmedo PA [Primary Care Provider] - As soon as possible Please follow up with your Primary Care Physician in: 1 Week Test Results: Test results from this visit will be discussed in further detail at your follow-up appointment, if applicable. Proposed Discharge Date: 03/09/19
--- NOTE | 2019-03-09 12:09 | DS.PCM_ITS ---
Discharge Date and Diagnosis Date of Admission: 03/07/19 Date of Discharge: 03/09/19 - Primary Discharge Diagnosis Active and Suspected Problems (Last Reviewed 03/07/19 @ 21:37 by Osorio Francisco MD) 1. Musculoskeletal chest pain, ACS ruled out 2. New diagnosis type 2 diabetes mellitus-hemoglobin A1c 7.2%. 3. Hyperlipidemia 4. Mild elevated creatinine secondary to mild dehydration 5. Fibromyalgia 6. Rheumatoid arthritis 7. Chronic asthma - Secondary Discharge Diagnosis Chronic Problems (Last Reviewed 03/07/19 @ 21:37 by Osorio Francisco MD) Multiple thyroid nodules (Chronic) Bipolar disorder (Chronic) Rheumatoid arthritis (Chronic) Chronic stable asthma (Chronic) Hospital Course and Treatment Imaging Results: Diagnostic Data Chest X-Ray 03/07/19 18:35 IMPRESSION: No acute cardiopulmonary process. Electronically Signed: Abi Santoyo MD at 19:12 EDT Tel , Service support , Operations: None Procedures: Stress test Summary of Care Provided: The patient is a 48 year old F admitted 03/07/2019 due to chest pain. 1. Atypical chest pain-EKG without acute ischemia. Troponin negative. Chest x- ray without acute process. Patient underwent nuclear stress test which was negative for ischemia, gated ejection fraction 84%. ACS ruled out. Patient was initiated on statin for elevated lipid panel. Suspect pain musculoskeletal in nature. Follow-up with primary care provider in 1 week. 2. New diagnosis type 2 diabetes mellitus-hemoglobin A1c 7.2%. Initiated on metformin XR 500 mg daily. Will need further outpatient follow-up and dose adjustment as needed. 3. Hyperlipidemia-not previously on regimen. Initiated on atorvastatin 20 mg p.o. nightly. 4. Mild elevated creatinine secondary to mild dehydration-resolved. 5. Fibromyalgia-PRN Flexeril regimen. 6. Rheumatoid arthritis-continue home etanercept and methotrexate regimen. 7. Chronic asthma-no acute exacerbation. As needed albuterol aerosol. General: Alert, Oriented x3, Cooperative HEENT: Atraumatic, PERRLA, EOMI, Normocephalic Neck: Supple, No JVD, Negative Carotid Bruits Lungs: Clear to auscultation, Normal air movement Cardiovascular: Regular rate, Regular Rhythm, Normal S1, Normal S2, No murmurs Abdomen: Bowel Sounds Present, Soft, Non Tender, Non-Distended Extremities: No clubbing, No cyanosis, No edema, Capillary Refill Less than 3 Seconds Skin: No rashes, No breakdown Musculoskeletal: No Tenderness to Palpation of Joints or Extremities Neurological: Cranial nerves II-XII grossly intact, Neuro grossly intact Psych/Mental Status: Normal Affect, Appropriate Patient seen and examined prior to discharge. Physical assessment as noted above. Patient is stable for discharge with follow up recommendations as noted above. This patient was seen by TRAY Alaniz under the supervision of Dr. Calvillo. - Physical Exam Vital Signs Temp Pulse Resp BP Pulse Ox 98.7 F 85 16 120/61 94 03/09/19 10:24 03/09/19 10:24 03/09/19 10:24 03/09/19 10:24 03/09/19 10:24 Oxygen Flow Rate (L/min) 2 Oxygen Delivery Method Room Air Weight: 218 lb 0.595 oz Body Mass Index (BMI) 34.1 Finger Stick Blood Glucose 98 Intake and Output for Last 24 Hours 03/07/19 03/08/19 03/09/19 23:59 23:59 23:59 Intake Total 480 / 480 857 / 857 Balance 480 / 480 857 / 857 Laboratory Tests Past 24 Hrs 03/09/19 03/09/19 03/09/19 05:10 05:10 05:10 WBC 13.7 H RBC 4.40 Hgb 12.7 Hct 38.5 MCV 87.5 MCH 28.9 MCHC 33.0 RDW 14.3 RDW Differential 45.2 H Plt Count 284 MPV 10.0 Immature Gran % (Auto) 0.900 Neut % (Auto) 56.5 Lymph % (Auto) 27.7 [place] % (Auto) 6.8 Eos % (Auto) 7.8 H Baso % (Auto) 0.3 Absolute Neuts (auto) 7.8 H Absolute Lymphs (auto) 3.81 Total Counted Not Reportable PT 14.1 INR 1.1 APTT 28.7 Sodium 140 Potassium 3.8 Chloride 107 Carbon Dioxide 24.0 Anion Gap 9 BUN 11 Creatinine 0.84 Estim Creat Clear Calc 79.65 Est GFR (MDRD) Af Amer 93 Est GFR (MDRD) Non-Af 77 BUN/Creatinine Ratio 13.1 Glucose 138 H Calcium 8.1 L POC Glucose 03/09/19 03/08/19 03/08/19 06:31 21:03 16:10 POC Glucose 138 H 178 H 153 H Discharge Diet: Low fat/ Low Cholesterol, Carb Control Diet Discharge Activity: Return to Normal Activity Call your doctor if you observe: Shortness of breath, Dizziness, Fainting spells, Chest pain Home Medications: Medications to take at Discharge Methotrexate Sodium/Pf [Methotrexate 25 mg/ml Vial] 1 dose IM QWEEK 01/17/18 albuterol 90 mcg/actuation aerosol inhaler 90 mcg INHALATION .every 4 hours prn 03/12/18 etanercept 50 mg/mL (0.98 mL) subcutaneous syringe 50 mg SC QWEEK 03/12/18 cycloBENZAPRine HCl [Flexeril] 10 mg PO TID PRN PRN 02/20/19 Atorvastatin Calcium [Lipitor] 20 mg PO QHS #30 tab 03/09/19 metFORMIN (XR) [Glucophage Xr] 500 mg PO DAILY #30 tab 03/09/19 Following Prescrptions Were Given to Patient: metFORMIN (XR) [Glucophage Xr] 500 mg PO DAILY #30 tab Transmission Status: Received by [facility] Atorvastatin Calcium [Lipitor] 20 mg PO QHS #30 tab Transmission Status: Received by [facility] Primary Care Physician: Cheli Olmedo PA [Primary Care Provider] - As soon as possible Please follow up with your Primary Care Physician in: 1 Week Patient Instructions: CHEST PAIN, Uncertain Cause Disposition: Home Minutes spent on discharge:: 35 Patient Condition:: Stable Medical Necessity - Tobacco Use Smoking Status: Former smoker Tobacco Use: Cigarettes Meaningful Use Info Meaningful Use Diagnoses (Choose all that apply): None applicable
--- NOTE | 2019-03-09 12:31 | PHA.DC.MC ---
Pharmacy Service has performed discharge medication reconciliation and counseling for this patient. The patient's discharge medication list was reviewed for discrepancies and discrepancies were resolved. The patient was counseled on the following discharge medications and changes in medications for homegoing were reviewed. 1. ATORVASTATIN 2. METFORMIN The Reason for Use, instructions for use, and potential side effects were reviewed for all new medications. The patient's questions regarding all of their medications were answered. The patient was able to verbally demonstrate an understanding of their discharge medications. Home Medications Methotrexate Sodium/Pf [Methotrexate 25 mg/ml Vial] 1 dose IM QWEEK 01/17/18 albuterol 90 mcg/actuation aerosol inhaler 90 mcg INHALATION .every 4 hours prn 03/12/18 etanercept 50 mg/mL (0.98 mL) subcutaneous syringe 50 mg SC QWEEK 03/12/18 cycloBENZAPRine HCl [Flexeril] 10 mg PO TID PRN PRN 02/20/19 Atorvastatin Calcium [Lipitor] 20 mg PO QHS #30 tab 03/09/19 metFORMIN (XR) [Glucophage Xr] 500 mg PO DAILY #30 tab 03/09/19
== END 2019-03-09 11:47 | disposition home or self-care (01) ==
LOC: ED 19:38 → PCU 21:26
PROVIDERS: Internal Medicine; Admitting Provider Hospitalist; Emergency Provider Emergency Medicine; Family Provider Physician Assistant; PCP Physician Assistant; Visit Provider Internal Medicine
DX: R07.89 Other chest pain (principal); M06.9 Rheumatoid arthritis, unspecified; M79.7 Fibromyalgia; R06.00 Dyspnea, unspecified; J45.909 Unspecified asthma, uncomplicated; E78.5 Hyperlipidemia, unspecified; Z87.891 Personal history of nicotine dependence; Z79.899 Other long term (current) drug therapy
CPT/HCPCS: 36415; 71045; 78452; 80048; 80061; 82962; 83036; 84484; 85025; 85610; 85730; 93005; 93017; 97802; 99218; 99285; A9500; A4216; G0378; J2785

== ENCOUNTER 2019-04-19 15:44 | Emergency (ER) | payer MEDICAID, SELFPAY ==
[2019-04-19 15:45] VITALS: BP 143/107; PULSE 85; RESP 16; TEMP 36.2; O2SAT 96; BMI 33.9
--- NOTE | 2019-04-19 16:17 | CT_ITS ---
STUDY: CT ABDOMEN AND PELVIS WITH CONTRAST REASON FOR EXAM: Female, 48 years old. Abdominal pain and constipation. RADIATION DOSAGE (If Supplied By Facility): CTDIvol = ( 20.91 ) mGy, DLP = ( 1163.03 ) mGycm TECHNIQUE: Transaxial images were obtained from the dome of the diaphragm to the symphysis pubis with subsegmental atelectasis. oral contrast. 100 IV/Oral Isovue 300 was administered. Sagittal and coronal images were reconstructed. Individualized dose optimization techniques were used for this CT. COMPARISON: 12/01/2018. FINDINGS: Limited views through the lower chest show mild streaky densities in both lower lungs consistent with subsegmental atelectasis. There is decreased attenuation of the liver consistent with steatosis. Marked hepatomegaly. There are multiple gallstones. Normal spleen. Normal pancreas. Normal bilateral adrenal glands. Normal right kidney. Normal left kidney. Normal visualized stomach. Normal small intestine. Moderate diffuse fecal retention throughout the colon. The appendix is visualized and appears normal. Normal abdominal aorta. Normal inferior vena cava. Normal retroperitoneum. Normal urinary bladder. Normal visualized uterus. Normal abdominal wall. Normal osseous structures. CT/Abdomen/Pelvis WITH Contrast IMPRESSION: No acute abnormality. Marked fecal retention. Marked fatty liver and hepatomegaly, stable. Cholelithiasis, stable. Electronically Signed: Moe Soto MD at 18:48 EDT , Service support ,
[2019-04-19] MEDS: 0.9% Normal Saline 1,000 ML 1000 ML IV (16:35)
[2019-04-19] MEDS: Ondansetron 4 MG/2 ML Vial IV (16:35)
[2019-04-19] MEDS: Morphine 4 MG/ML Syringe IV (16:35)
[2019-04-19 16:39] LABS: Absolute Lymphocyte Count 3.45 X10^3/uL (0.83-4.51); Absolute Neutrophil Count 9.9 X10^3/uL (2.0-7.7); Basophil# 0.08 X10^3/uL; Basophil% 0.5 % (0-1); Eosinophil# 0.59 X10^3/uL; Eosinophils% 3.9 % (0-5); Hematocrit 42.5 % (37-47); Hemoglobin 14.3 g/dL (12.0-15.0); Lymphocyte # 3.45 X10^3/ul (4.0); Lymphocyte % 22.7 % (19-41); Mean Corp Hgb Conc 33.6 g/dL (32-36); Mean Corpuscular Hgb 30.2 pg (27.0-32.0); Mean Corpuscular Volume 89.7 fL (81-99); Mean Platelet Vol. 9.7 fl (6.2-12.0); Monocyte# 1.11 X10^3/uL; Monocyte% 7.3 % (0-10); NRBC Flagged by Analyzer 0 % (0-5); Neutrophil # 9.86 X10^3/uL (2.7-7.7); Neutrophil % 64.7 % (47-70); Platelet Count 321 K/mm3 (150-450); RBC Distribution Width CV 13.4 % (11.6-14.6); RBC Distribution Width SD 43.7 fl (35.1-43.9); Red Blood Count 4.74 M/mm3 (4.2-5.4); White Blood Count 15.2 K/mm3 (4.4-11.0)
[2019-04-19 16:53] LABS: AST(SGOT) 32 U/L (15-37); Alanine Aminotransfer ALT/SGPT 49 U/L (13-56); Albumin, Serum 3.8 g/dL (3.2-5.0); Alkaline Phosphatase 162 U/L (45-117); Anion Gap 7 (5-15); BUN 9 mg/dL (7-18); BUN/Creat Ratio 8.9 RATIO (10-20); Calcium,Total 8.6 mg/dL (8.5-10.1); Chloride 107 mmol/L (98-107); Creatinine, Serum 1.01 mg/dL (0.55-1.02); EST Glomerular Filtration Rate 62 mL/min (>60); Est Glom Filt Rate - Afr Amer 75 mL/min (>60); Estimated Creatinine Clearance 66.24 ml/min; Globulin 3.8 g/dL (2.2-4.2); Glucose 91 mg/dL (74-106); Lipase 84 U/L (73-393); Potassium 3.5 mmol/L (3.5-5.1); Protein, Total 7.6 g/dL (6.4-8.2); Sodium Level 140 mmol/L (136-145)
[2019-04-19 16:56] LABS: Internal QC Validated? YES +Cl - CLEAR BKGD
[2019-04-19 16:59] LABS: Pregnancy, Serum, hCG Quali. NEGATIVE Negative
[2019-04-19 17:45] LABS: Color, Urine Yellow (Yellow); Glucose, Dipstick Normal (Normal); Ketone-Dipstick Negative (Negative); Leukocyte Esterase-Dipstick 25 /ul (Negative); Nitrite-Dipstick Negative (Negative); Occult Blood-Urine Negative /ul (Negative); Protein-Dipstick Negative (Negative); Urine Bilirubin Dipstick Negative (Negative); Urine Clarity Clear (Clear); Urine Urobilinogen Normal (Normal)
[2019-04-19 18:54] VITALS: BP 138/75; PULSE 62; RESP 15; O2SAT 98
--- NOTE | 2019-04-19 19:14 | ED.DCSUM_ITS ---
- ER Visit Summary Date of Service: 04/19/19 Chief Complaint: Constipation History of Present Illness: The patient is a 48 F with constipation for 2 weeks. Patient said that she has not had a normal bowel movement for 2 weeks. Denies any sense of fecal impaction. She tried MiraLAX and stool softeners int ermittently for 5 days, but had no improvement. She does report some right side abdominal pain for 3 hours and some chills. History of diverticulitis and C- section. Physical Examination: Afebrile and vital signs unremarkable. Alert and oriented. No acute distress. Heart regular. Lungs clear. Abdomen tender over the right hemiabdomen. No guarding or rebound. No distention. Skin appears normal. Test Results: White count 15.2. Otherwise CBC, CMP, lipase unremarkable. Urinalysis and test unremarkable. CT abdomen showed no acute fin dings. She has stable fatty liver, hepato-megaly, and cholelithiasis. She does have fecal retention noted. Emergency Department Course and Treatment: Patient received fluids and pain medicine while awaiting results. Work-up indicated fecal retention. There is no obstruction. Her white count is 15.2, but she has no other signs of infection or sepsis. I believe she is appropriate for outpatient care. She will be treated with magnesium citrate. Follow-up with primary care. Continue MiraLAX and stool softeners as needed. Increase fluids and fiber. Treatment Plan: As above Disposition: Discharge Impression: 1. Constipation 2. Leukocytosis This note was generated with [employer] dictation software. It may contain incorrect words, spelling, and punctuation that were not noted in review of the chart prior to signing ED Disposition - Plan for ED Patient: Referrals: Cheli Olmedo PA [Primary Care Provider] -
--- NOTE | 2019-04-19 19:16 | ED.DEP ---
ED Disposition - Plan for ED Patient: Instructions: CONSTIPATION (Adult) Referrals: Cheli Olmedo PA [Primary Care Provider] -
[2019-04-19] MEDS: Magnesium Citrate 300 ML PO (19:22)
[2019-04-19 19:25] VITALS: BP 139/67; PULSE 71; RESP 15; O2SAT 98
== END 2019-04-19 19:26 | disposition home or self-care (01) ==
LOC: ED 16:26
PROVIDERS: Emergency Provider Emergency Medicine; Family Provider Physician Assistant; PCP Physician Assistant
DX: K59.00 Constipation, unspecified (principal); D72.829 Elevated white blood cell count, unspecified; J45.909 Unspecified asthma, uncomplicated; E11.9 Type 2 diabetes mellitus without complications; E78.00 Pure hypercholesterolemia, unspecified; M06.9 Rheumatoid arthritis, unspecified; Z87.891 Personal history of nicotine dependence; Z79.84 Long term (current) use of oral hypoglycemic drugs; Z79.51 Long term (current) use of inhaled steroids; Z79.899 Other long term (current) drug therapy
CPT/HCPCS: 74177; 80053; 81002; 83690; 84703; 85025; 96361; 96374; 96375; 99285; J7030; Q9967; A4216; J2405

== ENCOUNTER 2019-10-16 17:23 | Emergency (ER) | payer MEDICAID, SELFPAY ==
[2019-10-16 17:24] VITALS: BP 159/101; PULSE 86; RESP 18; TEMP 36.7; O2SAT 100; BMI 32.1
--- NOTE | 2019-10-16 17:37 | CT_ITS ---
STUDY: CT ABDOMEN AND PELVIS WITH CONTRAST REASON FOR EXAM: Female, 49 years old. ABD PAIN THAT RADIATES TO BACK NO BM IN 2 WEEKS, ELEVATED WBC RADIATION DOSAGE (If Supplied By Facility): CTDIvol = ( 17.31 ) mGy, DLP = ( 1139.24 ) mGycm TECHNIQUE: Transaxial images were obtained from the dome of the diaphragm to the symphysis pubis with oral contrast. 100mL Isovue-300 was administered. Sagittal and coronal images were reconstructed. Individualized dose optimization techniques were used for this CT. COMPARISON: Prior abdomen and pelvic CT exam of April 19, 2019 FINDINGS: The visualized lung bases are unremarkable. The visualized portions of the heart are within normal limits. Fatty liver. Multiple gallstones in a nondistended gallbladder. Normal spleen. Normal pancreas. Normal bilateral adrenal glands. Normal right kidney. Normal left kidney. Normal visualized stomach. Normal small intestine. Minimal diverticulosis of the colon without evidence of acute diverticulitis. Moderate stool burden without obstructing lesion. Normal appendix. Negative for inflammatory bowel changes. Normal abdominal aorta. Normal inferior vena cava. Normal retroperitoneum. Normal urinary bladder. Negative for pelvic mass or free fluid of the pelvis. Normal uterus and ovaries. Minimal fatty umbilical hernia. Normal osseous structures. CT/Abdomen/Pelvis WITH Contrast IMPRESSION: Fatty liver. Normal spleen and pancreas. Stone filled nondistended gallbladder without bile duct distention. Normal stomach, small bowel and appendix. Minimal diverticulosis of the colon without evidence of diverticulitis. Moderate diffuse stool burden. Negative for pelvic mass or free fluid of the pelvis. Unremarkable urinary bladder. Electronically Signed: Laura Jackson MD at 19:35 EST , Service support ,
--- NOTE | 2019-10-16 17:38 | ED.DCSUM_ITS ---
- ER Visit Summary Date of Service: 10/16/19 Chief Complaint: [Abdominal pain] History of Present Illness: The patient is a 49 F [presents to the emergency department complaint of abdominal pain and constipation. Patient states that she has had pain in her right abdomen for about a week that radiates to her back. Patient complains of nausea but no vomiting. She denies any diarrhea and as a matter fact that she is not had a good bowel movement in over 2 weeks. Patient does have history of being bipolar and history of rheumatoid arthritis. Patient does have history of prior diverticulitis. Patient has had prior C- section and prior tubal ligation. Patient states that while at home she tried taking half a bottle of magnesium citrate 2 days ago with no results. Patient also tried taking bisacodyl and still not having much in the way of results. From time to time she will passed some small hard stools. Patient denies any fevers.] Physical Examination: [HEENT-PERRLA, EOMI. Cranial nerves II through XII grossly intact. TMs clear. Mucous membranes moist. No adenopathy. Cardiovascular-regular rate and rhythm without murmur or ectopy Lungs-clear to auscultation, chest wall stable without crepitus or subcu emphysema Abdomen-normoactive bowel sounds, soft. Patient does have tenderness palpation over the right lower quadrant as well as the suprapubic region and left lower quadrant. There is no rebound, rigidity, peritoneal signs. Extremities-intact ?4, normal range of motion, normal pulses, atraumatic] Test Results: [CBC with differential obtained showed elevated white count of 15.7 which is chronically elevated. Hemoglobin was 14.6, hematocrit 44, platelets 342. Chemistries unremarkable. LFTs unremarkable. Alk phos was 165. Urinalysis was normal. CT scan of the abdomen pelvis with IV and p.o. contrast showed moderate stool burden otherwise she was noted to have Marianne lithiasis which is chronic. Normal appendix. No kidney stones noted. No bowel obstruction.] Emergency Department Course and Treatment: [Patient was given Bentyl on arrival. Given normal saline.] Treatment Plan: [Patient bottle magnesium citrate for home. She is advised to use MiraLAX. She is advised to use fruit juices. Patient also referred to primary care physician for follow-up in 3 to 5 days. Advised to return if worsening pain, fever, vomiting, or condition should worsen anyway.] Disposition: [Home in stable condition.] Impression: [Abdominal pain Constipation] This note was generated with [employer] dictation software. It may contain incorrect words, spelling, and punctuation that were not noted in review of the chart prior to signing ED Disposition - Plan for ED Patient: Referrals: Cheli Olmedo PA [Primary Care Provider] -
[2019-10-16] MEDS: 0.9% Normal Saline 1,000 ML 125 ML IV (18:00)
[2019-10-16] MEDS: Dicyclomine 20 MG/2 ML Vial IM (18:00)
[2019-10-16 18:13] LABS: Absolute Lymphocyte Count 4.87 X10^3/uL (0.83-4.51); Basophil# 0.09 X10^3/uL; Basophil% 0.6 % (0-1); Eosinophil# 0.71 X10^3/uL; Eosinophils% 4.5 % (0-5); Hematocrit 44.5 % (37-47); Hemoglobin 14.6 g/dL (12.0-15.0); Lymphocyte # 4.87 X10^3/ul (4.0); Mean Corp Hgb Conc 32.8 g/dL (32-36); Mean Corpuscular Hgb 28.6 pg (27.0-32.0); Mean Corpuscular Volume 87.3 fL (81-99); Mean Platelet Vol. 9.5 fl (6.2-12.0); Monocyte# 0.96 X10^3/uL; Monocyte% 6.1 % (0-10); NRBC Flagged by Analyzer 0 % (0-5); Neutrophil # 9.01 X10^3/uL (2.7-7.7); Neutrophil % 57.3 % (47-70); Platelet Count 342 K/mm3 (150-450); RBC Distribution Width CV 13.2 % (11.6-14.6); RBC Distribution Width SD 41.6 fl (35.1-43.9); White Blood Count 15.7 K/mm3 (4.4-11.0)
[2019-10-16 18:21] LABS: AST(SGOT) 28 U/L (15-37); Alanine Aminotransfer ALT/SGPT 48 U/L (13-56); Albumin, Serum 3.8 g/dL (3.2-5.0); Alkaline Phosphatase 165 U/L (45-117); Anion Gap 4 (5-15); BUN 11 mg/dL (7-18); BUN/Creat Ratio 10.6 RATIO (10-20); Calcium,Total 8.9 mg/dL (8.5-10.1); Chloride 108 mmol/L (98-107); Creatinine, Serum 1.04 mg/dL (0.55-1.02); EST Glomerular Filtration Rate 60 mL/min (>60); Est Glom Filt Rate - Afr Amer 72 mL/min (>60); Estimated Creatinine Clearance 63.63 ml/min; Globulin 3.7 g/dL (2.2-4.2); Glucose 105 mg/dL (74-106); Lipase 81 U/L (73-393); Potassium 3.5 mmol/L (3.5-5.1); Protein, Total 7.5 g/dL (6.4-8.2); Sodium Level 139 mmol/L (136-145)
[2019-10-16 18:24] LABS: Lactic Acid 1.4 mmol/L (0.4-1.9)
[2019-10-16 18:50] LABS: Mucous, Urine 0 SEEN /hpf (<or=2+); Red Blood Cells-Urine 0 SEEN /hpf (0-5)
[2019-10-16 18:54] LABS: Color, Urine Yellow (Yellow); Glucose, Dipstick Normal (Normal); Ketone-Dipstick Negative (Negative); Leukocyte Esterase-Dipstick 25 /ul (Negative); Nitrite-Dipstick Negative (Negative); Occult Blood-Urine Negative /ul (Negative); Protein-Dipstick Negative (Negative); Urine Bilirubin Dipstick Negative (Negative); Urine Clarity Sl. Cloudy (Clear); Urine Urobilinogen Normal (Normal)
[2019-10-16 19:06] LABS: Bacteria RARE /hpf (None Seen); Squamous Epithelial Cells - UA 0-5 SEEN /hpf (5-10); White Blood Cells 0-5 SEEN /hpf (0-5)
--- NOTE | 2019-10-16 20:03 | ED.DEP ---
ED Disposition - Plan for ED Patient: Instructions: ABDOMINAL PAIN, Unknown Cause, (Female), CONSTIPATION (Adult) Referrals: Cheli Olmedo PA [Primary Care Provider] - 3-5 Days
[2019-10-16 20:30] VITALS: RESP 16
== END 2019-10-16 20:30 | disposition home or self-care (01) ==
LOC: ED 18:13
PROVIDERS: Emergency Provider Emergency Medicine; PCP Physician Assistant
DX: K59.00 Constipation, unspecified (principal); R10.30 Lower abdominal pain, unspecified; M06.9 Rheumatoid arthritis, unspecified; Z72.0 Tobacco use
CPT/HCPCS: 74177; 80053; 81001; 83605; 83690; 85025; 96360; 96361; 96372; 99283; J7030; Q9967

== ENCOUNTER 2019-12-14 15:08 | Emergency (ER) | payer MEDICAID, SELFPAY ==
[2019-12-14 15:10] VITALS: BP 137/82; PULSE 100; PULSE 106; RESP 18; TEMP 36.6; O2SAT 99; BMI 33.2
[2019-12-14 15:31] VITALS: BP 137/82; PULSE 106; RESP 18; TEMP 36.6; O2SAT 98; O2SAT 99
--- NOTE | 2019-12-14 15:49 | ED.DCSUM_ITS ---
History of Present Illness Chief Complaint: Cold Sx Informant: Patient Onset: 11-17 Activity at onset: - - coughing Quality: Pain Location: Right Chest Current Severity: Moderate Maximum Severity: Moderate Worsened By: Coughing. 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 Negative for: Nausea, Vomiting, Diaphoresis, Dyspnea, Fever, Lightheadedness, Acid Reflux, Palpitations Narrative: Nonproductive cough without fevers for 3 weeks. PCP started her on an unknown twice daily antibiotic 5 days ago, not helping. Developed right-sided nonradiating 3 or 4 days ago. She experiences it only when she coughs. No other new symptoms. No leg swelling or pain. No recent travel out of the area. No definite infection with any persons with known coronavirus infection. No GI or abdominal symptoms. Mild runny nose and congestion. No earache or sore throat or neck pain. No back pain. No history of DVT or PE. Patient is on methotrexate for her rheumatoid arthritis. No history of heart disease. She has history of asthma but states it has not been flared up during this illness. - Past Medical History (1) Bipolar disorder Status: Chronic (2) Chronic stable asthma Status: Chronic (3) Multiple thyroid nodules Status: Chronic (4) Rheumatoid arthritis Status: Chronic Past Medical History - Allergies and Home Meds Allergies/Adverse Reactions: Allergies ciprofloxacin [From Cipro] Allergy (Verified 12/14/19 15:09) Hives ciprofloxacin HCl [From Cipro] Allergy (Verified 12/14/19 15:09) Hives Penicillins Allergy (Verified 12/14/19 15:09) Hives Sulfa (Sulfonamide Antibiotics) Allergy (Verified 12/14/19 15:09) Hives diphenhydramine HCl [From Benadryl] Adverse Reaction (Verified 12/14/19 15:09) HYPERACTIVITY Primary Care Physician: Cheli Olmedo PA [Primary Care Provider] - Surgical History: - - She had a toothpick removed from her feet. Smoking Status: Former smoker Drugs: None - Family History Paternal Family History: Family History (Last Updated 03/07/19 @ 21:[address] Osorio Francisco MD) Sister Arthritis Father Heart disease Mother Cancer Grandmother Cancer Family History: Reports: Heart Disease Review of Systems General: Denies: Chills, Fever, Sweats Eyes: Denies: Visual changes - bilaterally, Diplopia ENT: Reports: Rhinorrhea. Denies: Sore throat Cardiovascular: Reports: Chest pain. Denies: Palpitations, Heart racing Respiratory: Reports: Cough. Denies: Dyspnea, Sputum, Dyspnea on exertion, Orthopnea Gastrointestinal: Denies: Abdominal pain, Nausea, Vomiting, Diarrhea, Melena, Hematochezia Genitourinary: Denies: Dysuria, Hematuria, Frequency Musculoskeletal: Denies: Back pain, Swelling, Extremity Pain Skin: Denies: Rash, Wounds Neurological: Denies: Headache, Weakness, Numbness Physical Exam Vital Signs/Narrative: Vital Signs Temp Pulse Resp BP Pulse Ox 12/14/19 15:31 97.8 F 106 H 18 137/82 H 99 12/14/19 15:10 97.8 F 100 18 137/82 H 99 Inital Vital Signs reviewed: Yes General: Well nourished, Well developed, No Acute Distress - Reading a book. Well-appearing, conversive in full sentences. Frequent intermittent nonproductive cough. No stridor. Head: Normocephalic, Atraumatic Eyes: Perrl, EOMI ENT: Moist mucous membranes, No rhinorrhea, TM's clear, - - Posterior oropharynx clear Neck: Supple, Nontender, No lymphadenopathy, No JVD Cardiovascular: Regular rate, Regular rhythm, No murmurs Respiratory: No distress, CTA bilaterally, Chest nontender Abdomen: Soft, Nontender, Nondistended, Normal bowel sounds Back: Nontender, Normal Inspection. Negative for: CVA tenderness Extremities: Nontender, No edema. Negative for: Calf Tenderness Skin: Normal color, No rash, No Trauma Neurological: Alert, Oriented x3, Cranial nerves II-XII grossly intact, Normal Strength, Normal Sensation Psychological: Normal affect, Normal Mood Diagnostic/Tx/Re-eval Clinical Impression(s) from Imaging Studies Chest X-Ray 12/14/19 16:00 IMPRESSION: Normal x-ray examination of the chest. Electronically Signed: João Cervantes, at 16:25 EDT , Service support , - Medical Decision Making X-ray of the chest is normal. There is no infiltrate or effusion or coronavirus-like pattern. Her lungs are clear and her pulse ox is 99 on room air. She is well-appearing and stable for discharge home. Patient does not have COVID-19 exposure and is not critically ill or clinically septic, has not traveled to/from a region with a CDC level 2 or 3 travel health notice, vital signs are stable without hypoxia, is not ill enough to require admission to the hospital, and at this time does not meet current [facility] requirements for testing for COVID-19. Supportive care advised. I recommend ibuprofen/NSAIDs for the discomfort which is likely pleurisy, since it is not reproducible with palpation, however she states she is not supposed to use that since she is on methotrexate. Advised follow-up with her doctor. ED Disposition - Plan for ED Patient: Disposition: Home or Assisted Living Diagnosis: Pleurisy, Viral upper respiratory tract infection Instructions: ED Upper Resp Infec No Abx Tx, Pleurisy Referrals: Cheli Olmedo PA [Primary Care Provider] - 10-14 Days if not better Additional Instructions: -See additional attached quarantine instructions for what to do with regards to the possibility of coronavirus infection, given that you do not currently meet the [facility] requirements for testing since they require us to conserve the limited testing ability for the sickest, hospitalized patients.
--- NOTE | 2019-12-14 16:00 | RAD_ITS ---
STUDY: X-RAY CHEST REASON FOR EXAM: Female, 49 years old. Cough, right sided chest pain TECHNIQUE: Single AP portable view of the chest. COMPARISON: Comparison is made with prior examination dated March 07, 2019. FINDINGS: EKG electrodes are seen. The lungs are clear and expanded. There is no demonstrated pleural abnormality. Normal size heart. Normal mediastinum and benjamin. Normal visualized pulmonary arteries. Normal visualized aortic arch and descending thoracic aorta. There are degenerative changes of the visualized thoracic spine. Normal visualized ribs, clavicles, and shoulders. There is no demonstrated abnormality of the visualized soft tissue structures of the upper abdomen. RAD/Chest 1 View (Portable) IMPRESSION: Normal x-ray examination of the chest. Electronically Signed: João Cervantes, at 16:25 EDT , Service support ,
[2019-12-14 16:55] VITALS: BP 142/79; PULSE 81; RESP 22; O2SAT 97
== END 2019-12-14 16:56 | disposition home or self-care (01) ==
PROVIDERS: Emergency Provider Emergency Medicine; PCP Physician Assistant
DX: J06.9 Acute upper respiratory infection, unspecified (principal); R09.1 Pleurisy; M06.9 Rheumatoid arthritis, unspecified; J45.909 Unspecified asthma, uncomplicated; Z79.899 Other long term (current) drug therapy; Z87.891 Personal history of nicotine dependence
CPT/HCPCS: 71045; 99282

== ENCOUNTER 2020-01-03 20:10 | Emergency (ER) | payer MEDICAID, SELFPAY ==
[2020-01-03 20:10] VITALS: BP 155/81; PULSE 83; RESP 17; TEMP 36.7; O2SAT 99; BMI 33.7
--- NOTE | 2020-01-03 20:18 | ED.RN ---
CALLED FOR EKG PER RN REQUEST, PULLED OLD EKGS FOR
--- NOTE | 2020-01-03 20:46 | EKG12_ITS ---
Test Reason : CP Blood Pressure : / mmHG Vent. Rate : 082 BPM Atrial Rate : 082 BPM P-R Int : 174 ms QRS Dur : 084 ms QT Int : 376 ms P-R-T Axes : 038 -66 008 degrees QTc Int : 439 ms Normal sinus rhythm Left axis deviation Poor R wave progression Anteroseptal IA, age undetermined, cannot be excluded Abnormal ECG Confirmed by TUSHAR ALVARADO, JAELYN ([id number]), supervising editor news reel SANJIV CA ([id number]) on 01/06/2020 9:32:53 AM Referred By: Confirmed By:JAELYN FINLEY MD
--- NOTE | 2020-01-03 20:48 | ED.VIS.CHEST ---
History of Present Illness Chief Complaint: Nausea/Vomiting Informant: Patient, EMS Onset: Today Activity at onset: - - upon waking up from nap about 5 hrs prior to eval Timing: Continuous Quality: Dull Location: Substernal Current Severity: Mild Maximum Severity: Mild Worsened By: Nothing. Not Worsened By: Movement of Arm, Movement of Torso, Breathing Relieved By: Nothing Associated Symptoms: Nausea, Dyspnea. Negative for: Vomiting, Diaphoresis, Cough, Fever, Lightheadedness, Palpitations Narrative: Patient states she has been feeling shaky/tremulous all over for the past 3 days, possibly related to falling off the wagon recently and drinking about half of a quart of alcohol per day for several days, only 3 or 4. She stopped 3 days ago, subsequently starting to feel shaky thereafter which has persisted. Today she took a nap and when she woke up she felt discomfort in her mid chest without radiation that is dull and nonpleuritic, but she states she feels shortness of breath with it that she qualifies as feeling like it is difficult to breathe in fully. She denies true dyspnea. No recent leg pain or swelling. No history of DVT/PE. No recent travel out of the area, or immobilization/hospitalization. She denies any confusion or focal neurologic symptoms other than the generalized tremor/shakiness. - Past Medical History (1) Fibromyalgia Status: Chronic (2) Bipolar disorder Status: Chronic (3) Chronic stable asthma Status: Chronic (4) Rheumatoid arthritis Status: Chronic Past Medical History - Allergies and Home Meds Allergies/Adverse Reactions: Allergies ciprofloxacin [From Cipro] Allergy (Verified 01/03/20 20:13) Hives ciprofloxacin HCl [From Cipro] Allergy (Verified 01/03/20 20:13) Hives Penicillins Allergy (Verified 01/03/20 20:13) Hives Sulfa (Sulfonamide Antibiotics) Allergy (Verified 01/03/20 20:13) Hives diphenhydramine HCl [From Benadryl] Adverse Reaction (Verified 01/03/20 20:13) HYPERACTIVITY Primary Care Physician: Cheli Olmedo PA [Primary Care Provider] - Surgical History: - - She had a toothpick removed from her feet. 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 Osorio Francisco MD) Sister Arthritis Father Heart disease Mother Cancer Grandmother Cancer Family History: Reports: Heart Disease Review of Systems General: Reports: Malaise - shaky all over x 3d. Denies: Chills, Fever, Sweats Eyes: Denies: Visual changes - bilaterally, Diplopia ENT: Denies: Bilateral ear pain, Rhinorrhea, Sore throat Cardiovascular: Reports: Chest pain. Denies: Palpitations Respiratory: Reports: Dyspnea. Denies: Cough, Sputum, Dyspnea on exertion, Orthopnea Gastrointestinal: Reports: Nausea. Denies: Abdominal pain, Vomiting, Diarrhea, Melena, Hematochezia Genitourinary: Denies: Dysuria, Hematuria, Frequency Musculoskeletal: Reports: Arthralgias - chronic/stable, Extremity Pain - arthralgias. Denies: Myalgias, Neck pain, Back pain, Swelling Skin: Denies: Rash, Wounds Neurological: Denies: Headache, Weakness, Numbness Physical Exam Vital Signs/Narrative: Vital Signs Temp Pulse Resp BP Pulse Ox 01/03/20 20:10 98.1 F 83 17 155/81 H 99 Inital Vital Signs reviewed: Yes General: Well nourished, Well developed, Obese, No Acute Distress Head: Normocephalic, Atraumatic Eyes: Perrl, EOMI ENT: Moist mucous membranes, No rhinorrhea. Negative for: Nasal congestion, Sinus tenderness Neck: Supple, Nontender, No lymphadenopathy, No JVD Cardiovascular: Regular rate, Regular rhythm, No murmurs. Negative for: Tachycardia Respiratory: No distress, CTA bilaterally, Chest nontender Abdomen: Soft, Nontender, Nondistended, Normal bowel sounds Back: Nontender, Normal Inspection. Negative for: CVA tenderness Extremities: Nontender, No edema. Negative for: Calf Tenderness Skin: Normal color, No rash, No Trauma Neurological: Alert, Oriented x3, Cranial nerves II-XII grossly intact, Normal Strength, Normal Sensation, Normal Gait Psychological: Normal affect, Normal Mood Diagnostic/Tx/Re-eval Impressions Chest X-Ray 01/03/20 21:00 IMPRESSION: Normal x-ray examination of the chest. Electronically Signed: Moe Soto MD at 21:22 EDT , Service support , 01/03/20 21:00 Chest 1 View (Portable) [RAD] Stat Laboratory Results 01/03/20 01/03/20 01/03/20 20:45 20:45 20:55 WBC 19.3 H RBC 4.84 Hgb 14.3 Hct 43.2 MCV 89.3 MCH 29.5 MCHC 33.1 RDW Std Deviation 44.5 H RDW Coeff of Mariia 13.9 Plt Count 283 MPV 10.1 Immature Gran % (Auto) 1.400 H Neut % (Auto) 61.0 Lymph % (Auto) 26.2 Morrow % (Auto) 6.1 Eos % (Auto) 4.8 Baso % (Auto) 0.5 Absolute Neuts (auto) 11.8 H Absolute Lymphs (auto) 5.06 H Nucleated RBC % 0 Differential Comment COMMENT Reactive Lymphocytes RARE Platelet Estimate ADEQUATE RBC Morphology NORM C+C Sodium 139 Potassium 4.1 Chloride 108 H Carbon Dioxide 24.0 Anion Gap 7 BUN 13 Creatinine 1.02 Estim Creat Clear Calc 64.88 Est GFR (MDRD) Af Amer 74 Est GFR (MDRD) Non-Af 61 BUN/Creatinine Ratio 12.7 Glucose 173 H Calcium 8.7 Troponin I < 0.015 Urine Color Yellow Urine Clarity Clear Urine pH 6.0 Ur Specific [place] 1.025 Urine Protein Negative Urine Glucose (UA) Normal Urine Ketones Negative Urine Occult Blood Negative Urine Nitrite Negative Urine Bilirubin Negative Urine Urobilinogen Normal Ur Leukocyte Esterase 500 H Urine RBC 0 SEEN Urine WBC 0-5 SEEN Ur Squamous Epith Cells 0-5 SEEN Urine Bacteria RARE Urine Mucus 0 SEEN Urine Yeast RARE - Rhythm Strip Rhythm Strip: Sinus Rhythm Rate: 82 Ectopy: None - EKG Initial EKG Interpretation: Sinus Rhythm, No Acute Injury Pattern, - - LAD Prior: Unchanged Treatment: GI Cocktail - and zofran Repeat Eval: Pain Free CYRIL Risk: No Positive CYRIL Elements Score: 0 - Medical Decision Making Patient is feeling much better with resolved chest discomfort and difficulty taking a breath after a GI cocktail and Zofran. She states she even feels less shaky. She has a leukocytosis however this is chronic for her and may be related to some of her rheumatoid arthritis medications. Her blood sugars in the 170s, she has 500 leukocyte esterase on her urinalysis but the rest of it is really unremarkable. I sent that for culture, no reason to treat unless the culture returns significantly positive. She is comfortable discharge and advised to follow-up with her doctor for persistent issues/recurrent symptoms. She is comfortable with that plan. ED Disposition - Plan for ED Patient: Disposition: Home or Assisted Living Diagnosis: Chest pain, non-cardiac, Tremulousness Instructions: ED Chest Pain NonCardiac Prescriptions: Famotidine 40 mg PO DAILY #30 tab Prescription Printed Referrals: Cheli Olmedo PA [Primary Care Provider] - 3-5 Days if not improving
[2020-01-03] MEDS: Mag Hydrox/Al Hydrox/Simeth 30 ML UDC PO (20:53)
[2020-01-03] MEDS: Ondansetron 4 MG/2 ML Vial IV (20:53)
[2020-01-03 20:56] LABS: Absolute Lymphocyte Count 5.06 X10^3/uL (0.83-4.51); Absolute Neutrophil Count 11.8 X10^3/uL (2.0-7.7); Basophil% 0.5 % (0-1); Eosinophil# 0.93 X10^3/uL; Eosinophils% 4.8 % (0-5); Hematocrit 43.2 % (37-47); Hemoglobin 14.3 g/dL (12.0-15.0); Lymphocyte # 5.06 X10^3/ul (4.0); Lymphocyte % 26.2 % (19-41); Mean Corp Hgb Conc 33.1 g/dL (32-36); Mean Corpuscular Hgb 29.5 pg (27.0-32.0); Mean Corpuscular Volume 89.3 fL (81-99); Mean Platelet Vol. 10.1 fl (6.2-12.0); Monocyte# 1.18 X10^3/uL; Monocyte% 6.1 % (0-10); NRBC Flagged by Analyzer 0 % (0-5); Neutrophil # 11.78 X10^3/uL (2.7-7.7); POSITIVE DIFFERENTIAL YES; Platelet Count 283 K/mm3 (150-450); RBC Distribution Width CV 13.9 % (11.6-14.6); RBC Distribution Width SD 44.5 fl (35.1-43.9); Red Blood Count 4.84 M/mm3 (4.2-5.4); White Blood Count 19.3 K/mm3 (4.4-11.0)
[2020-01-03 20:58] LABS: Differential Indicated SCAN CRITERIA MET
--- NOTE | 2020-01-03 21:00 | RAD_ITS ---
STUDY: X-RAY CHEST REASON FOR EXAM: Female, 49 years old. Chest pain with sob TECHNIQUE: Single AP portable view of the chest. COMPARISON: 12/14/2019. FINDINGS: The lungs are clear and expanded. There is no demonstrated pleural abnormality. Normal size heart. Normal mediastinum and benjamin. Normal visualized pulmonary arteries. Normal visualized aortic arch and descending thoracic aorta. Normal visualized thoracic spine. Normal visualized ribs, clavicles, and shoulders. There is no demonstrated abnormality of the visualized soft tissue structures of the upper abdomen. RAD/Chest 1 View (Portable) IMPRESSION: Normal x-ray examination of the chest. Electronically Signed: Moe Soto MD at 21:22 EDT , Service support ,
[2020-01-03 21:02] LABS: Mucous, Urine 0 SEEN /hpf (<or=2+); Red Blood Cells-Urine 0 SEEN /hpf (0-5)
[2020-01-03 21:04] LABS: Color, Urine Yellow (Yellow); Glucose, Dipstick Normal (Normal); Ketone-Dipstick Negative (Negative); Leukocyte Esterase-Dipstick 500 /ul (Negative); Nitrite-Dipstick Negative (Negative); Occult Blood-Urine Negative /ul (Negative); Protein-Dipstick Negative (Negative); Specific Gravity, Urine 1.025 (1.002-1.030); Urine Bilirubin Dipstick Negative (Negative); Urine Clarity Clear (Clear); Urine Urobilinogen Normal (Normal)
[2020-01-03 21:10] LABS: Squamous Epithelial Cells - UA 0-5 SEEN /hpf (5-10); White Blood Cells 0-5 SEEN /hpf (0-5); Yeast-Urine RARE /hpf (None Seen)
[2020-01-03 21:11] LABS: Bacteria RARE /hpf (None Seen)
[2020-01-03 21:13] LABS: Anion Gap 7 (5-15); BUN 13 mg/dL (7-18); BUN/Creat Ratio 12.7 RATIO (10-20); Calcium,Total 8.7 mg/dL (8.5-10.1); Chloride 108 mmol/L (98-107); Creatinine, Serum 1.02 mg/dL (0.55-1.02); EST Glomerular Filtration Rate 61 mL/min (>60); Est Glom Filt Rate - Afr Amer 74 mL/min (>60); Estimated Creatinine Clearance 64.88 ml/min; Glucose 173 mg/dL (74-106); Potassium 4.1 mmol/L (3.5-5.1); Sodium Level 139 mmol/L (136-145)
[2020-01-03 21:23] LABS: Platelet Estimate ADEQUATE (ADEQ); Reactive Lymphocyte RARE; Red Cell Morphology NORM C+C NORMAL (NORM C&C)
[2020-01-03 22:51] VITALS: BP 123/81; PULSE 82; RESP 20; O2SAT 95
== END 2020-01-03 22:51 | disposition home or self-care (01) ==
PROVIDERS: Emergency Provider Emergency Medicine; PCP Physician Assistant
DX: R07.89 Other chest pain (principal); R25.1 Tremor, unspecified; M06.9 Rheumatoid arthritis, unspecified; J45.909 Unspecified asthma, uncomplicated; F31.9 Bipolar disorder, unspecified; M79.7 Fibromyalgia; F17.200 Nicotine dependence, unspecified, uncomplicated; E66.9 Obesity, unspecified; Z79.51 Long term (current) use of inhaled steroids; Z79.899 Other long term (current) drug therapy
CPT/HCPCS: 71045; 80048; 81001; 84484; 85025; 87077; 87086; 87088; 93005; 96374; 99285; A4216; J2405

== ENCOUNTER 2020-02-28 19:00 | Emergency (ER) | payer MEDICAID, SELFPAY ==
[2020-02-28 19:02] VITALS: BP 156/73; PULSE 100; RESP 20; TEMP 36.3; O2SAT 99; BMI 32.7
--- NOTE | 2020-02-28 19:32 | RAD_ITS ---
STUDY: X-RAY CHEST REASON FOR EXAM: Female, 49 years old. Cough and shortness of breath for 4 weeks. TECHNIQUE: Single AP portable view of the chest. COMPARISON: 01/03/2020. FINDINGS: The lungs are clear and expanded. There is no demonstrated pleural abnormality. Normal size heart. Normal mediastinum and benjamin. Normal visualized pulmonary arteries. Normal visualized aortic arch and descending thoracic aorta. Normal visualized thoracic spine. Normal visualized ribs, clavicles, and shoulders. There is no demonstrated abnormality of the visualized soft tissue structures of the upper abdomen. RAD/Chest 1 View (Portable) IMPRESSION: No active pulmonary disease. Electronically Signed: Yaw Freedman MD at 19:53 EDT Tel , Service support ,
[2020-02-28 19:36] VITALS: BP 139/82; PULSE 79; RESP 18; TEMP 37.1; O2SAT 95
[2020-02-28] MEDS: Acetaminophen 500 MG Tablet 1000 MG PO (19:40)
--- NOTE | 2020-02-28 19:59 | ED.VISSUMM ---
- ER Visit Summary Date of Service: 02/28/20 Chief Complaint: Cough History of Present Illness: The patient is a 49 F who sees Shady Olmedo. She reports she has a cough began 2 weeks ago. Is worsened today. Is nonproductive. She denies any sick contacts. However, she has not been maintaining quarantine during COVID-19. Patient reports she has had chills, but no fever. She is sore throat that is 8 out of 10 severity. She reports that she has mild shortness of breath. She has chest pain is increased with coughing. She has a headache that is 8 out of 10 in severity. Physical Examination: Vitals: Stable. Afebrile. General: Well-nourished and well-developed. Head: Normocephalic atraumatic. Neck: Supple, no lymphadenopathy. No JVD. Nontender. Cardiovascular: Regular rate and rhythm. No murmurs. Respiratory: No respiratory distress. Clear to auscultation bilaterally. Abdominal: Soft, nontender, nondistended, normal bowel sounds. No guarding, rebound, or peritoneal signs. Back: Nontender. Extremities: Nontender, no edema. Skin: Normal color, no rash. Neurologic: Alert and oriented ?3. Cranial nerves II through XII are intact. Normal strength and sensation. Psych: Normal affect. Test Results: Clinical Impression(s) from Imaging Studies Chest X-Ray 02/28/20 19:32 IMPRESSION: No active pulmonary disease. Electronically Signed: Yaw Freedman MD at 19:53 EDT Tel , Service support , Emergency Department Course and Treatment: Patient has a history of rheumatoid arthritis and is on methotrexate. I did order a COVID-19 test. However, [facility] is closed at this time. They will be contacted in the morning and if they do not accept her this will be sent to [facility]. Treatment Plan: Patient is not hypoxic. She will be discharged with symptomatic care. Follow-up with her primary care physician in 2 weeks if not improving. She is instructed that she may have COVID-19 and needs to quarantine herself. Return to the emergency department for any worsening symptoms. Disposition: To home in improved and stable condition. Impression: 1. URI. 2. Possible COVID-19 infection. This note was generated with [employer] dictation software. It may contain incorrect words, spelling, and punctuation that were not noted in review of the chart prior to signing ED Disposition - Plan for ED Patient: Instructions: ED Upper Resp Infec No Abx Tx Referrals: Cheli Olmedo PA [Primary Care Provider] - 10-14 Days if not better
[2020-02-28 20:34] VITALS: BP 149/97; PULSE 79; RESP 18; TEMP 36.3; O2SAT 98
== END 2020-02-28 20:57 | disposition home or self-care (01) ==
LOC: ED 20:06
PROVIDERS: Emergency Provider Emergency Medicine; PCP Physician Assistant
DX: J06.9 Acute upper respiratory infection, unspecified (principal); M06.9 Rheumatoid arthritis, unspecified; E11.9 Type 2 diabetes mellitus without complications; E78.00 Pure hypercholesterolemia, unspecified; F17.210 Nicotine dependence, cigarettes, uncomplicated; Z20.828 Contact with and (suspected) exposure to other viral communicable diseases; Z79.84 Long term (current) use of oral hypoglycemic drugs; Z79.899 Other long term (current) drug therapy
CPT/HCPCS: 71045; 87635; 99283; G2023; U0003

== ENCOUNTER 2020-06-07 21:41 | Emergency (ER) | payer MEDICAID, SELFPAY ==
[2020-06-07 21:41] VITALS: BP 154/89; PULSE 78; RESP 18; TEMP 36.3; O2SAT 98; BMI 33.8
--- NOTE | 2020-06-07 22:44 | ED.VIS.GEN ---
History of Present Illness Chief Complaint: Headache Informant: Patient Narrative: 49-year-old female presenting with headache. She states she has a history of migraines but has not had one in a while. Her headache started this morning and she has been trying Tylenol without any relief. She cannot take ibuprofen. She states it feels like previous migraines. She has l a phobia and phonophobia. She denies any head injury. - Past Medical History (1) Bipolar disorder Status: Chronic (2) Chronic stable asthma Status: Chronic (3) Fibromyalgia Status: Chronic (4) Rheumatoid arthritis Status: Chronic Past Medical History - Allergies and Home Meds Allergies/Adverse Reactions: Allergies ciprofloxacin [From Cipro] Allergy (Verified 02/28/20 19:04) Hives ciprofloxacin HCl [From Cipro] Allergy (Verified 02/28/20 19:04) Hives Penicillins Allergy (Verified 02/28/20 19:04) Hives Sulfa (Sulfonamide Antibiotics) Allergy (Verified 02/28/20 19:04) Hives diphenhydramine HCl [From Benadryl] Adverse Reaction (Verified 02/28/20 19:04) HYPERACTIVITY Primary Care Physician: Cheli Olmedo PA [Primary Care Provider] - Prior records reviewed: Yes Past Medical History: - - Migraines Surgical History: noncontributory, - - She had a toothpick removed from her feet. Lives: With Family Smoking Status: Current every day smoker Alcohol: None Drugs: None - Family History Paternal Family History: Family History (Last Updated 03/07/19 @ 21:[address] Osorio Francisco MD) Sister Arthritis Father Heart disease Mother Cancer Grandmother Cancer Family History: Reports: Heart Disease Review of Systems General: Denies: Chills, Fever, Sweats Eyes: Denies: Visual changes - bilaterally, Diplopia ENT: Denies: Rhinorrhea, Sore throat Cardiovascular: Denies: Chest pain, Palpitations Respiratory: Denies: Dyspnea, Cough, Dyspnea on exertion Gastrointestinal: Reports: Nausea. Denies: Abdominal pain, Vomiting, Diarrhea, Melena, Hematochezia Genitourinary: Denies: Dysuria, Hematuria, Frequency Musculoskeletal: Denies: Back pain, Extremity Pain Skin: Denies: Rash, Wounds Neurological: Reports: Headache. Denies: Weakness, Parasthesia Physical Exam Vital Signs/Narrative: Vital Signs Temp Pulse Resp BP Pulse Ox 06/07/20 21:41 97.3 F L 78 18 154/89 H 98 Inital Vital Signs reviewed: Yes General: Well nourished, No Acute Distress Head: Normocephalic, Atraumatic Eyes: Perrl, EOMI ENT: Moist mucous membranes, No rhinorrhea Cardiovascular: Regular rate, Regular rhythm Respiratory: No distress, CTA bilaterally Abdomen: Soft, Nontender, Nondistended Extremities: Nontender, No edema Skin: Normal color, No rash Neurological: Alert, Oriented x3, Cranial nerves II-XII grossly intact Psychological: Normal affect, Normal Mood Diagnostic/Tx/Re-eval Clinical Impression(s) from Imaging Studies Brain CT 06/07/20 22:49 IMPRESSION: Stable head CT, no acute intracranial abnormality. Chronic decreased aeration of the mastoid air cells. Electronically Signed: Irwin Ga MD at 0:14 EDT , Service support , - Medical Decision Making Patient presenting with migraine which is typical of her migraine however she has not had a migraine in a long time. She was treated with Reglan and benztropine and her headache resolved. Given the long time since she has had a headache I did CT her brain which was normal. Feels well enough now to go home. I will discharge her home in stable condition. Impression: 1. Headache ED Disposition - Plan for ED Patient: Disposition: Home or Assisted Living Instructions: ED Headache Unspecified Referrals: Cheli Olmedo PA [Primary Care Provider] -
--- NOTE | 2020-06-07 22:49 | CT_ITS ---
STUDY: CT BRAIN WITHOUT CONTRAST REASON FOR EXAM: Female, 49 years old. Headache since this morning. RADIATION DOSAGE (If Supplied By Facility): CTDIvol = ( 44.99 ) mGy, DLP = ( 796.11 ) mGycm TECHNIQUE: Transaxial CT imaging of the brain was performed without administration of intravenous contrast material. Individualized dose optimization techniques were used for this CT. COMPARISON: July 12, 2015. FINDINGS: Normal soft tissue structures. Normal calvarium. Normal size ventricles and extra-axial spaces for the patient''s age. Normal white matter tracts of the cerebral hemispheres. Normal basal ganglia and thalami. Normal brainstem. Normal cerebellum. There is no intracranial hemorrhage. There are no findings of an acute ischemic infarction. Normal visualized paranasal sinuses. Decreased aeration of both mastoid air cells unchanged. CT/Brain/Head without Contrast IMPRESSION: Stable head CT, no acute intracranial abnormality. Chronic decreased aeration of the mastoid air cells. Electronically Signed: Irwin Ga MD at 0:14 EDT , Service support ,
[2020-06-07] MEDS: Metoclopramide 10 MG/2 ML Vial IV (23:26)
[2020-06-08 01:05] VITALS: BP 121/78; PULSE 77; RESP 18; O2SAT 97
== END 2020-06-08 01:06 | disposition home or self-care (01) ==
PROVIDERS: Emergency Provider Student in an Organized Health Care Education/Training Program; PCP Physician Assistant
DX: R51 Headache (principal); M06.9 Rheumatoid arthritis, unspecified; M79.7 Fibromyalgia; J45.909 Unspecified asthma, uncomplicated; F17.200 Nicotine dependence, unspecified, uncomplicated; Z79.51 Long term (current) use of inhaled steroids
CPT/HCPCS: 70450; 96361; 96374; 96375; 99283

== ENCOUNTER 2020-09-27 10:12 | Observation (INO) | payer MEDICAID, SELFPAY ==
[2020-09-27 10:13] VITALS: BP 168/130; PULSE 94; RESP 16; TEMP 35.3; O2SAT 100; BMI 32.8
--- NOTE | 2020-09-27 10:34 | US_ITS ---
STUDY: ABDOMINAL ULTRASOUND - RIGHT UPPER QUADRANT REASON FOR VISIT: Female, 50 years old PAIN COFFEE WITH EXTRA CREAM AROUND 10AM TECHNIQUE: Ultrasound evaluation of the right upper quadrant was performed with real-time and static cox-scale imaging. TECHNICAL QUALITY: Limited. Examination limited due to a combination of factors including obesity and bowel gas. COMPARISON: None. FINDINGS: Liver: The liver is enlarged and measures 20.4 cm. There is increased echogenicity consistent with fatty infiltration. The bile ducts are within normal limits. There is hepatic color flow. The direction of portal flow is hepatopetal. There is no demonstrated mass lesion. Gallbladder: Normal distended gallbladder. The gallbladder wall measures 2.4 mm. There is a negative sonographic Leonard''s sign. There is no pericholecystic fluid. There are multiple echogenic structures within the gallbladder, consistent with multiple gallstones. Common Bile Duct (C.B.D.): The common bile duct measures 4.0 mm. Pancreas: Normal size of the head, body and tail of the pancreas. There is increased echogenicity of the pancreas. There is no demonstrated pancreatic mass or cyst. Right Kidney: Normal size of the right kidney. The right kidney measures 12.3 cm x 4.8 cm x 4.2 cm. Normal renal cortex. The right cortex measures 1.2 cm. There is no demonstrated renal mass or cyst. There is no right hydronephrosis. US/Abdomen Limited IMPRESSION: Hepatomegaly and fatty infiltration of the liver are Multiple gallstones. Electronically Signed: João Cervantes, at 12:05 EST , Service support ,
--- NOTE | 2020-09-27 10:35 | ED.DCSUM_ITS ---
History of Present Illness Chief Complaint: Abd Pain Informant: Patient Narrative: 50-year-old female presents with right upper quadrant abdominal pain. Patient tells me that she has known gallstones. She states that she has had pain for a month. She has been waiting to schedule a cholecystectomy. She notes pain is much worse this morning associated with nausea. She had a cup of coffee this morning. No food today. No fevers. She notes some constipation. Pain radiates to the right flank. The patient states that she saw Dr. Pham for general surgery. - Past Medical History (1) Bipolar disorder Status: Chronic (2) Chronic stable asthma Status: Chronic (3) Fibromyalgia Status: Chronic (4) Rheumatoid arthritis Status: Chronic Past Medical History - Allergies and Home Meds Allergies/Adverse Reactions: Allergies ciprofloxacin [From Cipro] Allergy (Verified 09/27/20 10:13) Hives ciprofloxacin HCl [From Cipro] Allergy (Verified 09/27/20 10:13) Hives Penicillins Allergy (Verified 09/27/20 10:13) Hives Sulfa (Sulfonamide Antibiotics) Allergy (Verified 09/27/20 10:13) Hives diphenhydramine HCl [From Benadryl] Adverse Reaction (Verified 09/27/20 10:13) HYPERACTIVITY Primary Care Physician: Cheli Olmedo PA [Primary Care Provider] - Surgical History: noncontributory, - - She had a toothpick removed from her feet. Lives: Spouse/ Significant Other Smoking Status: Current every day smoker Drugs: None - Family History Paternal Family History: Family History (Last Updated 03/07/19 @ 21:[address] Osorio Francisco MD) Sister Arthritis Father Heart disease Mother Cancer Grandmother Cancer Family History: Reports: Heart Disease Review of Systems General: Denies: Chills, Fever, Sweats Eyes: Denies: Visual changes - bilaterally, Diplopia ENT: Denies: Rhinorrhea, Sore throat Cardiovascular: Denies: Chest pain, Palpitations Respiratory: Denies: Dyspnea, Cough, Dyspnea on exertion Gastrointestinal: Reports: Abdominal pain, Nausea. Denies: Vomiting, Diarrhea, Melena, Hematochezia Genitourinary: Denies: Dysuria, Hematuria, Frequency Musculoskeletal: Denies: Back pain, Extremity Pain Skin: Denies: Rash, Wounds Neurological: Denies: Headache, Weakness, Numbness Physical Exam Vital Signs/Narrative: Vital Signs Temp Pulse Resp BP Pulse Ox 09/27/20 10:13 95.6 F L 94 16 168/130 H 100 Inital Vital Signs reviewed: Yes General: Well nourished, Well developed, Obese, No Acute Distress Head: Normocephalic, Atraumatic Eyes: Perrl, EOMI ENT: Moist mucous membranes, No rhinorrhea Neck: Supple, Nontender Cardiovascular: Regular rate, Regular rhythm, No murmurs Respiratory: No distress, CTA bilaterally, Chest nontender Abdomen: Soft, Nondistended, Normal bowel sounds, Tender, Guarding Back: Nontender, Normal Inspection Extremities: Nontender, No edema Skin: Normal color, No rash Neurological: Alert, Oriented x3, Cranial nerves II-XII grossly intact, Normal Strength, Normal Sensation Psychological: Normal affect, Normal Mood Diagnostic/Tx/Re-eval Clinical Impression(s) from Imaging Studies Abdomen Ultrasound 09/27/20 10:34 IMPRESSION: Hepatomegaly and fatty infiltration of the liver are Multiple gallstones. Electronically Signed: João Cervantes, at 12:05 EST , Service support , Laboratory Last Values WBC 13.7 K/mm3 (4.4-11.0) H 09/27/20 10:45 RBC 4.96 M/mm3 (4.2-5.4) 09/27/20 10:45 Hgb 14.7 g/dL (12.0-15.0) 09/27/20 10:45 Hct 43.5 % (37-47) 09/27/20 10:45 MCV 87.7 fL (81-99) 09/27/20 10:45 MCH 29.6 pg (27.0-32.0) 09/27/20 10:45 MCHC 33.8 g/dL (32-36) 09/27/20 10:45 RDW Std Deviation 40.3 fl (35.1-43.9) 09/27/20 10:45 RDW Coeff of Mariia 12.5 % (11.6-14.6) 09/27/20 10:45 Plt Count 299 K/mm3 (150-450) 09/27/20 10:45 MPV 10.2 fl (6.2-12.0) 09/27/20 10:45 Immature Gran % (Auto) 0.700 % (0.0-0.9) 09/27/20 10:45 Neut % (Auto) 61.9 % (47-70) 09/27/20 10:45 Lymph % (Auto) 28.9 % (19-41) 09/27/20 10:45 Schleicher % (Auto) 5.2 % (0-10) 09/27/20 10:45 Eos % (Auto) 2.9 % (0-5) 09/27/20 10:45 Baso % (Auto) 0.4 % (0-1) 09/27/20 10:45 Absolute Neuts (auto) 8.5 X10^3/uL (2.0-7.7) H 09/27/20 10:45 Absolute Lymphs (auto) 3.95 X10^3/uL (0.83-4.51) 09/27/20 10:45 Nucleated RBC % 0 % (0-5) 09/27/20 10:45 Sodium 141 mmol/L (136-145) 09/27/20 10:45 Potassium 3.5 mmol/L (3.5-5.1) 09/27/20 10:45 Chloride 108 mmol/L (98-107) H 09/27/20 10:45 Carbon Dioxide 27.0 mmol/L (21.0-32.0) 09/27/20 10:45 Anion Gap 6 (5-15) 09/27/20 10:45 BUN 9 mg/dL (7-18) 09/27/20 10:45 Creatinine 0.93 mg/dL (0.55-1.02) 09/27/20 10:45 Estim Creat Clear Calc 70.38 ml/min 09/27/20 10:45 Est GFR (MDRD) Af Amer 82 mL/min (>60) 09/27/20 10:45 Est GFR (MDRD) Non-Af 68 mL/min (>60) 09/27/20 10:45 BUN/Creatinine Ratio 9.7 RATIO (10-20) L 09/27/20 10:45 Glucose 129 mg/dL (74-106) H 09/27/20 10:45 Calcium 9.1 mg/dL (8.5-10.1) 09/27/20 10:45 Total Bilirubin 0.40 mg/dL (0.20-1.00) 09/27/20 10:45 Direct Bilirubin 0.11 mg/dL (0.00-0.30) 09/27/20 10:45 AST 27 U/L (15-37) 09/27/20 10:45 ALT 41 U/L (13-56) 09/27/20 10:45 Alkaline Phosphatase 158 U/L (45-117) H 09/27/20 10:45 Total Protein 7.3 g/dL (6.4-8.2) 09/27/20 10:45 Albumin 3.7 g/dL (3.2-5.0) 09/27/20 10:45 Globulin 3.6 g/dL (2.2-4.2) 09/27/20 10:45 Amylase 32 U/L (25-115) 09/27/20 10:45 Lipase 137 U/L (73-393) 09/27/20 10:45 Urine Color Yellow (Yellow) 09/27/20 11:20 Urine Clarity Sl. Cloudy (Clear) 09/27/20 11:20 Urine pH 7.0 (5.0 - 8.0) 09/27/20 11:20 Ur Specific [place] 1.010 (1.002-1.030) 09/27/20 11:20 Urine Protein Negative mg/dl (Negative) 09/27/20 11:20 Urine Glucose (UA) Normal mg/dl (Normal) 09/27/20 11:20 Urine Ketones Negative mg/dl (Negative) 09/27/20 11:20 Urine Occult Blood 250 /ul (Negative) H 09/27/20 11:20 Urine Nitrite Negative (Negative) 09/27/20 11:20 Urine Bilirubin Negative mg/dL (Negative) 09/27/20 11:20 Urine Urobilinogen Normal mg/dl (Normal) 09/27/20 11:20 Ur Leukocyte Esterase 25 /ul (Negative) H 09/27/20 11:20 Urine RBC 25-50 SEEN /hpf (0-5) 09/27/20 11:20 Urine WBC 0-5 SEEN /hpf (0-5) 09/27/20 11:20 Ur Squamous Epith Cells 0-5 SEEN /hpf (5-10) 09/27/20 11:20 Urine Bacteria 0 SEEN /hpf (None Seen) 09/27/20 11:20 Urine Mucus 0 SEEN /hpf (<or=2+) 09/27/20 11:20 - Medical Decision Making IV was established and the patient received pain and nausea medications and IV fluids. White count is slightly elevated. There is no pericholecystic fluid. There are multiple gallstones. Dr. Pham whom she has seen as an outpatient for this was contacted. She will call me back when she is done in the operating room with her case. Dr. Pham came to the emergency room to see the patient. Plan is admission. ED Disposition - Plan for ED Patient: Disposition: Acute Care Hospital [facility] Diagnosis: Cholelithiasis, Biliary colic Referrals: Cheli Olmedo PA [Primary Care Provider] -
[2020-09-27 10:57] LABS: Absolute Lymphocyte Count 3.95 X10^3/uL (0.83-4.51); Absolute Neutrophil Count 8.5 X10^3/uL (2.0-7.7); Basophil# 0.06 X10^3/uL; Basophil% 0.4 % (0-1); Eosinophil# 0.39 X10^3/uL; Eosinophils% 2.9 % (0-5); Hematocrit 43.5 % (37-47); Hemoglobin 14.7 g/dL (12.0-15.0); Lymphocyte # 3.95 X10^3/ul (4.0); Lymphocyte % 28.9 % (19-41); Mean Corp Hgb Conc 33.8 g/dL (32-36); Mean Corpuscular Hgb 29.6 pg (27.0-32.0); Mean Corpuscular Volume 87.7 fL (81-99); Mean Platelet Vol. 10.2 fl (6.2-12.0); Monocyte# 0.71 X10^3/uL; Monocyte% 5.2 % (0-10); NRBC Flagged by Analyzer 0 % (0-5); Neutrophil # 8.47 X10^3/uL (2.7-7.7); Neutrophil % 61.9 % (47-70); Platelet Count 299 K/mm3 (150-450); RBC Distribution Width CV 12.5 % (11.6-14.6); RBC Distribution Width SD 40.3 fl (35.1-43.9); Red Blood Count 4.96 M/mm3 (4.2-5.4); White Blood Count 13.7 K/mm3 (4.4-11.0)
[2020-09-27] MEDS: Ondansetron 4 MG/2 ML Vial IV (11:02)
[2020-09-27] MEDS: 0.9% Normal Saline 1,000 ML 1000 ML IV (11:02)
[2020-09-27] MEDS: Morphine 4 MG/ML Syringe IV (11:04)
[2020-09-27 11:18] LABS: AST(SGOT) 27 U/L (15-37); Alanine Aminotransfer ALT/SGPT 41 U/L (13-56); Albumin, Serum 3.7 g/dL (3.2-5.0); Alkaline Phosphatase 158 U/L (45-117); Amylase 32 U/L (25-115); Anion Gap 6 (5-15); BUN 9 mg/dL (7-18); BUN/Creat Ratio 9.7 RATIO (10-20); Bilirubin, Direct 0.11 mg/dL (0.00-0.30); Calcium,Total 9.1 mg/dL (8.5-10.1); Chloride 108 mmol/L (98-107); Creatinine, Serum 0.93 mg/dL (0.55-1.02); EST Glomerular Filtration Rate 68 mL/min (>60); Est Glom Filt Rate - Afr Amer 82 mL/min (>60); Estimated Creatinine Clearance 70.38 ml/min; Globulin 3.6 g/dL (2.2-4.2); Glucose 129 mg/dL (74-106); Lipase 137 U/L (73-393); Potassium 3.5 mmol/L (3.5-5.1); Protein, Total 7.3 g/dL (6.4-8.2); Sodium Level 141 mmol/L (136-145)
[2020-09-27 11:22] LABS: Bacteria 0 SEEN /hpf (None Seen); Mucous, Urine 0 SEEN /hpf (<or=2+)
[2020-09-27 11:31] LABS: Color, Urine Yellow (Yellow); Glucose, Dipstick Normal (Normal); Ketone-Dipstick Negative (Negative); Leukocyte Esterase-Dipstick 25 /ul (Negative); Nitrite-Dipstick Negative (Negative); Occult Blood-Urine 250 /ul (Negative); Protein-Dipstick Negative (Negative); Urine Bilirubin Dipstick Negative (Negative); Urine Clarity Sl. Cloudy (Clear); Urine Urobilinogen Normal (Normal)
[2020-09-27 11:38] LABS: Red Blood Cells-Urine 25-50 SEEN /hpf (0-5); Squamous Epithelial Cells - UA 0-5 SEEN /hpf (5-10); White Blood Cells 0-5 SEEN /hpf (0-5)
--- NOTE | 2020-09-27 12:43 | HP.PCM_ITS ---
History and Physical Date of Admission: 09/27/20 HISTORY AND PHYSICAL ? Anuja Spencer 1970 ? ? PRIMARY PHYSICIAN: Jae Wei MD ? CHIEF COMPLAINT: abdominal pain ? HPI: The patient is a 50 year old female presents with severe abdominal pain. She has known findings of cholelithiasis (incidentally). Was scheduled with laparoscopic cholecystectomy in a couple of weeks. Presents to [facility] ED. She states that began having severe RUQ pain last night. In ED, noted to have elevated WBC of 13.7K with left shift of differential. She was noted to have elevated alk phos as outpatient and therefore RUQ US was obtained with revealed cholelithiasis. ? US 09/02/2020 IMPRESSION: Findings are suggestive of hepatic steatosis or less likely liver cirrhosis. Gallbladder stones. US 09/27/2020 IMPRESSION: Hepatomegaly and fatty infiltration of the liver are Multiple gallstones. ? PAST MEDICAL HISTORY ? Abdominal pain, right lower quadrant 04/02/2012 ? Arthritis of hand ? ? bilat ? Asthma ? ? Backache, unspecified 05/08/2010 ? Bipolar affective (HCC) ? ? pseudo seizure ? Chronic right shoulder pain 11/23/2016 ? Diabetes mellitus, type II (HCC) ? ? Fibromyalgia ? ? Flat back ? ? and neck ? Fracture ? ? Hand pain 03/07/2011 ? Hyperlipidemia ? ? Hyperlipidemia ? ? Memory loss of unknown cause ? ? Microscopic hematuria ? ? Other chest pain 03/31/2019 ? Admit 03/07-03/09/19 [facility] ACS ruled out with negative myocardial perfusion test, gated EF 84%, ? Pneumonia ? ? Positive PPD 1998 ? Reported/ ? Rheumatoid arthritis (HCC) ? ? Sacroiliitis, not elsewhere classified (HCC) 07/10/2013 ? Seizure (HCC) ? ? Tendinitis of hand 03/07/2011 ? Thyroid disorder ? ? Trigger finger (acquired) 03/07/2011 ? Varicella w/o complication ? ? As a child ? PAST SURGICAL HISTORY ? DELIVERY ONLY ? ? ? , low transverse ? CT BRAIN WO ? 06/07/2020 ? CT negative except decrease aeration mastoid air cells ? D&C, DIAG AND/OR THERAPEUTIC ? ? ? Dilation & curettage Possibly 3 for misc ? excision, benign tumor, fallopian tube ? 1998 ? Laparoscopic removal of one tube ? PAST SURGICAL HISTORY OF ? ? ? left foot repair ? ? Current Outpatient Medications ? DULoxetine (CYMBALTA) 30 mg capsule TAKE 1 CAPSULE ONCE DAILY ? metFORMIN ER (GLUCOPHAGE XR) 500 mg 24 hr tablet Take 2 tablets by mouth daily with breakfast. ? tofacitinib tablet 5 mg (XELJANZ) Take 1 tablet (5 mg) by mouth twice daily. ? methotrexate sodium 25 mg/mL soln INJECT 0.6 ML SUBCUTANEOUSLY ONCE WEEKLY DIRECTED. MULTI-DOSE VIAL.DISCARD 28 DAYS AFTER INITIAL USE. STORE AT ROOM TEMPERATURE. ? Insulin Syringe-Needle U-100 (BD INSULIN SYRINGE) 1 mL 25 gauge x 5/8 syrg Use once weekly with methotrexate injections ? cyclobenzaprine (FLEXERIL) 10 mg tablet Take 1 tablet by mouth three times daily as needed. Take at bedtime ? levothyroxine (LEVOXYL) 25 mcg tablet Take 1 tablet by mouth once daily. Take on empty stomach. For Thyroid ? atorvastatin (LIPITOR) 20 mg tablet Take 1 tablet by mouth daily at bedtime. For cholesterol. ? folic acid 1 mg tablet Take 5 tablets by mouth once daily. ? albuterol HFA (VENTOLIN HFA) 90 mcg/actuation inhaler Inhale 2 Puffs as in structed every 4 hours as needed for Wheezing/Shortness of Breath. ? albuterol (PROVENTIL) 2.5 mg /3 mL (0.083 %) nebulizer solution Use 3 mL via nebulizer every 6 hours as needed for Wheezing/Shortness of Breath. Use over 5-15minutes. ? blood sugar diagnostic (FREESTYLE LITE STRIPS) test strip Test blood sugar(s) 2-4 times daily. Dx: Type 2 DM - Uncontrolled E11.65 Insulin: No ? Lancets lancets Test blood sugar(s) 1-2 times daily. Dx: Type 2 DM - Uncontrolled E11.65 Insulin: No ? blood sugar diagnostic (BLOOD GLUCOSE TEST) test strip Test blood sugar(s) 1-2 times daily. Dx: Type 2 DM - Uncontrolled E11.65 Insulin: No ? BD TUBERCULIN SYRINGE 1 mL 27 x 1/2 syrg UNITS once weekly WITH methotrexate ? acetaminophen (TYLENOL) 325 mg tablet Take 2 tablets by mouth every 6 hours as needed. ? ? ALLERGIES: Benadryl [Diphenhydramine Hcl], Cipro [Ciprofloxacin], Gabapentin, Penicillins, and Sulfa (Sulfonamide Antibiotics) ? PERSONAL HISTORY: Social History ?Tobacco Use ? Smoking status: Current Every Day Smoker ? ? Packs/day: 1.00 ? ? Years: 30.00 ? ? Pack years: 30.00 ? ? Types: Cigarettes ? Smokeless tobacco: Never Used ? Tobacco comment: Pt has cut back to 5 cigarettes daily. Substance Use Topics ? Alcohol use: No ? ? Comment: Previous ETOH abuse. ? Drug use: No ? FAMILY HISTORY ? Cancer Mother 65 ? colon ? No Ocular Disease Mother ? ? Heart Father ? ? Arthritis Sister ? ? rheumatoid ? Cancer Maternal Grandmother ? ? poss pancreatic ? ? REVIEW OF SYSTEMS: General: The patient NOTES fatigue, denies weight loss, denies weight gain, denies feeling hot, and denies feelings of cold. Eyes: The patient denies glaucoma, denies eye injury/surgery, wears glasses or contacts. Ear/Nose/Throat: The patient denies allergies, denies hayfever, denies ear infections, and denies bloody noses. Cardiovascular: The patient denies chest pain, denies heart disease, NOTES high blood pressure,denies cardiac stent, denies prior heart attack, denies i rregular heart beat, NOTES high cholesterol, denies poor circulation, denies heart failure, other cardiac issues, NOTES claudication, NOTES cold feet, denies peripheral arterial stent. Respiratory: has seasonal asthma, denies tuberculosis, NOTES pneumonia, denies frequent cough, denies pulmonary embolism, NOTES shortness of breath, and denies coughing up blood. Gastrointestinal: see HPI, patient notes constipation - has no bowel movement up to 3-4 days, denies difficulty swallowing, denies acid reflux, denies ulcers, denies vomiting, denies jaundice/hepatitis, NOTES gallbladder problems, denies black or tarry stools, denies hemorrhoids, denies bleeding from rectum, denies diverticulitis, denies constipation, denies diarrhea, denies loss of stool control, and denies hernias. Kidney/Bladder: The patient denies kidney stones, denies urine infections, and denies bloody urine. Skin: The patient denies a history of skin cancer, denies bleeding/changing moles, and denies a history of skin rash. Neurologic: The patient NOTES a history of epilepsy/convulsions, NOTES headaches, NOTES head/spinal injuries, and denies stroke/TIA. Psychiatric: The patient denies psychiatric medications, NOTES depression, and denies voices, denies substance abuse. Endocrine: has diabetes, has hypothyroidism, and denies hormonal problems. Hematologic: The patient denies a history of bruising, denies bleeding, and denies anemia, denies blood clots. Infections: The patient denies a history of measles and mumps, denies rheumatic fever, and denies sexually transmitted diseases. Musculoskeletal: patient complains of pain all over due to fibromyalgia, also has RA, has had back pain/injury, NOTES back problems, denies sciatica, NOTES knee/foot trouble, NOTES arthritis, or denies gout. When was patient's last Mammogram screening? 08/2020 ? PHYSICAL EXAMINATION: General: The patient is 50 year old female, well nourished, well hydrated in no acute distress. The patient is oriented to time, place, and person. VITALS: Temp 95.6F HR 146/71 HR 68 RR 18 Head ? Normocephalic. EOM intact with sclera clear and no icterus noted. Wearing glasses. Mouth with mucus membranes moist. Neck - supple with no jugular venous distention noted. Trachea is midline. Lungs ? clear to auscultation. Normal breath sounds. No rales/rhonchi/wheezing noted. No labored breathing noted, such as retractions. No cough heard. Heart ? normal S1 and S2 auscultated. No rubs/clicks/murmurs noted. Regular rate. Abdomen ? soft but with RUQ tenderness. Normal bowel sounds. No abdominal bruits noted. Difficult to determine if any masses or organomegaly due to body habitus. Extremities ? no calf tenderness noted. No pitting edema noted. Skin ? normal skin integrity. Neurological ? gait normal, no focal deficits noted. Psych ? calm and appropriate ? LABORATORY VALUES: As Noted RADIOLOGIC STUDIES: As Noted ? ? IMPRESSION: cholelithiasis/cholecystitis ? PLAN: I have discussed the above with the patient. She will be admitted for cholecystitis. I have offered laparoscopic cholecystectomy, possible cholangiograms. I have explained the procedure to the patient. I have counseled the patient as to the risks of the procedure, including but not limited to: infection, bleeding, injury to any blood vessels/nerves, scar tissue, injury to any intrabdominal organs, injury to bowel/bladder, injury to the common bile duct/biliary tree, bile leakage, intraabdominal abscess/bleeding, hernias at incisional sites, wound infections, non resolution of her symptoms complaints, complications of anesthesia, etc. ? the patient understands. ? The patient was offered a surgery/procedure. The provider and patient have discussed in detail the risk of exposure to and/or potential harm posed by the COVID-19 virus with having a surgery/procedure at this time versus the risk of? delaying the surgery/procedure. It is not possible to know either the risk of delaying the surgery or procedure or chance of getting an infection with perfect accuracy, but a joint decision was made between the patient and the provider ?to proceed at this time with the scheduled surgery/procedure. ? The patient wishes to proceed. Earliest this can be scheduled is at 3 pm. Patient acknowledges this. I have answered all questions to the patient?s satisfaction and the patient has no further questions. ? Keila Pham MD
[2020-09-27 13:00] VITALS: BP 137/68; PULSE 69; RESP 18; TEMP 36.8; O2SAT 98
[2020-09-27 13:34] VITALS: BMI 32.7
[2020-09-27 13:41] VITALS: BP 146/71; PULSE 68; RESP 18; TEMP 36.2; O2SAT 98
--- NOTE | 2020-09-27 14:19 | PCS.PANDOC ---
PANDEMIC DOCUMENTATION INITIATED: Date: 08/22/2020 Time:
[2020-09-27] MEDS: Ketorolac 15 MG/ML Vial IV ×2 (15:15→21:34)
[2020-09-27] MEDS: Lactated Ringers 1,000 ML 150 ML IV ×2 (15:15→21:38)
[2020-09-27] MEDS: 0.9% Saline Lock 10 ML Syringe IV ×2 (15:16→21:33)
[2020-09-27 15:29] VITALS: BP 145/84; PULSE 74; RESP 18; TEMP 36.7; O2SAT 100
[2020-09-27 21:30] VITALS: BP 105/59; PULSE 66; RESP 18; TEMP 37.1; O2SAT 96
[2020-09-27] MEDS: Atorvastatin Calcium 20 MG Tablet PO (21:39)
[2020-09-28] MEDS: 0.9% Saline Lock 10 ML Syringe IV ×2 (01:37→05:48)
[2020-09-28] MEDS: Lactated Ringers 1,000 ML 150 ML IV (04:19)
[2020-09-28 04:26] VITALS: BP 125/62; PULSE 75; RESP 16; TEMP 36.8; O2SAT 94
[2020-09-28] MEDS: Ketorolac 15 MG/ML Vial IV (05:48)
[2020-09-28] MEDS: Levothyroxine 25 MCG TABLET PO (05:50)
[2020-09-28 07:27] VITALS: BP 112/66; PULSE 82; RESP 18; TEMP 36.2; O2SAT 95
--- NOTE | 2020-09-28 08:13 | PN.SURG_ITS ---
Patient Problems: Active and Suspected Problems (Last Reviewed 03/07/19 @ 21:[address] Osorio Francisco MD) Cholelithiasis (Acute) Biliary colic (Acute) Subjective: Patient feels much improved, wants to go home and come back for surgery - Physical Exam Vitals/I&O's: Vital Signs Temp Pulse Resp BP Pulse Ox 97.2 F L 82 18 112/66 95 09/28/20 07:27 09/28/20 07:27 09/28/20 07:27 09/28/20 07:27 09/28/20 07:27 Oxygen Delivery Method Room Air Weight: 94.8 kg Body Mass Index (BMI) 32.7 Finger Stick Blood Glucose 98 Intake and Output for Last 24 Hours 09/26/20 09/27/20 09/28/20 23:59 23:59 23:59 Intake Total 2314.5 / 2314.5 1238.5 / 1238.5 Output Total 300 / 300 Balance / 2013. 1238.5 / 1238.5 General: Alert, Oriented x3 Oral: Moist Mucosa Neck: Supple Lungs: Normal air movement Abdomen: Bowel Sounds Present, Soft Laboratory Results 09/27/20 10:45: WBC 13.7 H, RBC 4.96, Hgb 14.7, Hct 43.5, MCV 87.7, MCH 29.6, MCHC 33.8, RDW Std Deviation 40.3, RDW Coeff of Mariia 12.5, Plt Count 299, MPV 10.2, Immature Gran % (Auto) 0.700, Neut % (Auto) 61.9, Lymph % (Auto) 28.9, [place] % (Auto) 5.2, Eos % (Auto) 2.9, Baso % (Auto) 0.4, Absolute Neuts (auto) 8.5 H, Absolute Lymphs (auto) 3.95, Nucleated RBC % 0 09/27/20 10:45: Sodium 141, Potassium 3.5, Chloride 108 H, Carbon Dioxide 27.0, Anion Gap 6, BUN 9, Creatinine 0.93, Estim Creat Clear Calc 70.38, Est GFR (MDRD) Af Amer 82, Est GFR (MDRD) Non-Af 68, BUN/Creatinine Ratio 9.7 L, Glucose 129 H, Calcium 9.1, Total Bilirubin 0.40, Direct Bilirubin 0.11, AST 27, ALT 41, Alkaline Phosphatase 158 H, Total Protein 7.3, Albumin 3.7, Globulin 3.6, Amylase 32, Lipase 137 09/27/20 11:20: Urine Color Yellow, Urine Clarity Sl. Cloudy, Urine pH 7.0, Ur Specific [place] 1.010, Urine Protein Negative, Urine Glucose (UA) Normal, Urine Ketones Negative, Urine Occult Blood 250 H, Urine Nitrite Negative, Urine Bilirubin Negative, Urine Urobilinogen Normal, Ur Leukocyte Esterase 25 H, Urine RBC 25-50 SEEN, Urine WBC 0-5 SEEN, Ur Squamous Epith Cells 0-5 SEEN, Urine Bacteria 0 SEEN, Urine Mucus 0 SEEN Current Medications Albuterol Sulfate (Albuterol 2.5 Mg/3 Ml Vial.Neb.) 2.5 mg INHALATION Q4H PRN PRN Reason: SOB &/OR WHEEZING Atorvastatin Calcium (Atorvastatin Calcium 20 Mg Tablet) 20 mg PO QHS [facility] Last Admin: 09/27/20 21:39 Dose: 20 mg Documented by: Cyclobenzaprine HCl (Cyclobenzaprine Hcl 10 Mg Tablet) 10 mg PO TID PRN PRN PRN Reason: Pain Score 1-10 Clindamycin Phosphate 900 mg/ (Dextrose) 106 mls @ 150 mls/hr IV Q8 [facility] Last Infusion: 09/28/20 06:33 Dose: Infused Documented by: Lactated Ringer's () 1,000 mls @ 150 mls/hr IV .Q6H40M [facility] Last Infusion: 09/28/20 06:33 Dose: 150 mls/hr Documented by: Ketorolac Tromethamine (Ketorolac 15 Mg/Ml Vial) 15 mg IV Q8 [facility] Stop: 10/02/20 14:21 Last Admin: 09/28/20 05:48 Dose: 15 mg Documented by: Levothyroxine Sodium (Levothyroxine 25 Mcg Tablet) 25 mcg PO DAILY@0600 [facility] Last Admin: 09/28/20 05:50 Dose: 25 mcg Documented by: Morphine Sulfate (Morphine 4 Mg/Ml Syringe) 4 mg IV Q2H PRN PRN PRN Reason: Pain Score 4-10 Ondansetron HCl (Ondansetron 4 Mg/2 Ml Vial) 4 mg IV Q8H PRN PRN PRN Reason: NAUSEA Sodium Chloride (0.9% Saline Lock 10 Ml Syringe) 10 - 40 ml IV UD PRN PRN Reason: SALINE FLUSH Last Admin: 09/28/20 05:48 Dose: 10 ml Documented by: Medical Necessity - Tobacco Use Smoking Status: Current every day smoker Tobacco Use: Cigarettes Assessment/Plan All Active Problems (Last Reviewed 03/07/19 @ 21:[address] Osorio Francisco MD) Cholelithiasis (Acute) Biliary colic (Acute) Chest pain (Acute) Abdominal pain (Acute) Atypical chest pain (Resolved) Impression: cholelithiasis with cholecystitis Plan: will d/c patient to home, still plan surgery tomorrow afternoon
--- NOTE | 2020-09-28 08:14 | DCINST_ITS ---
Discharge Diet: - - low fat diet Discharge Activity: Return to Normal Activity Additional Instructions: Return to hospital tomorrow at time as per instructed Low fat diet, to avoid triggering abdominal pain No solid foods after 7:00 am tomorrow, may have sips of water to take your medications Allergies/Adverse Reactions: Allergies ciprofloxacin [From Cipro] Allergy (Verified 09/27/20 10:13) Hives ciprofloxacin HCl [From Cipro] Allergy (Verified 09/27/20 10:13) Hives Penicillins Allergy (Verified 09/27/20 10:13) Hives Sulfa (Sulfonamide Antibiotics) Allergy (Verified 09/27/20 10:13) Hives diphenhydramine HCl [From Benadryl] Adverse Reaction (Verified 09/27/20 10:13) HYPERACTIVITY Medications to take at Discharge Methotrexate Sodium/Pf [Methotrexate 25 mg/ml Vial] 1 dose IM QWEEK 01/17/18 albuterol 90 mcg/actuation aerosol inhaler 90 mcg INHALATION .every 4 hours prn PRN 03/12/18 cycloBENZAPRine HCl [Flexeril] 10 mg PO TID PRN PRN 02/20/19 Atorvastatin Calcium [Lipitor] 20 mg PO QHS #30 tab 03/09/19 Levothyroxine [Synthroid] 25 mcg PO DAILY 06/07/20 metFORMIN (XR) [Glucophage Xr] 500 mg PO BID 09/27/20 Hydrocodone Bitart/Apap 5-325 [[place] 5MG-325MG] 1 tablet PO Q8H PRN PRN 5 Days #15 tablet 09/28/20 The following prescriptions were given: Hydrocodone Bitart/Apap 5-325 [[place] 5MG-325MG] 1 tablet PO Q8H PRN PRN 5 Days #15 tablet PRN Reason: Pain Score 4-10 Transmission Status: Sent to [facility] Primary Care Physician: Cheli Olmedo PA [Primary Care Provider] - Test Results: Test results from this visit will be discussed in further detail at your follow- up appointment, if applicable.
[2020-09-28 09:47] VITALS: BP 133/59; PULSE 86; RESP 18; TEMP 37; O2SAT 97
--- NOTE | 2020-09-28 11:08 | NURSING ---
f/u phone call made to patient w/ covid ag test results. also reinforced instructions NPO 4 hrs prior to arrival at 1330 09/29/20 and no solids after 7am.
[2020-09-28 16:27] LABS: Thyroid Stim Hormone (TSH) 3.58 uIU/mL (0.358-3.74)
[2020-09-28 16:48] LABS: Hemoglobin A1c 8.7 % (3.8-5.6)
== END 2020-09-28 10:31 | disposition home or self-care (01) ==
LOC: ED 12:41 → SDC 12:51 → MS3 13:10 → SDC 14:23 → MS3 14:23
PROVIDERS: Anesthesiology; Admitting Provider Surgery; Emergency Provider Emergency Medicine; PCP Physician Assistant; Visit Provider Surgery
DX: K80.10 Calculus of gallbladder with chronic cholecystitis without obstruction (principal); J45.909 Unspecified asthma, uncomplicated; M79.7 Fibromyalgia; M06.9 Rheumatoid arthritis, unspecified; K59.00 Constipation, unspecified; E78.5 Hyperlipidemia, unspecified; E11.9 Type 2 diabetes mellitus without complications; M19.042 Primary osteoarthritis, left hand; M19.041 Primary osteoarthritis, right hand; F17.210 Nicotine dependence, cigarettes, uncomplicated; Z79.899 Other long term (current) drug therapy; Z79.84 Long term (current) use of oral hypoglycemic drugs
CPT/HCPCS: 36415; 76705; 80048; 80076; 81001; 82150; 83036; 83690; 84443; 85025; 87426; 96361; 96365; 96366; 96375; 96376; 99218; 99284; 99406; J7030; J7120; A4216; G0378; J2405

== ENCOUNTER 2020-10-09 18:20 | Emergency (ER) | payer MEDICAID, SELFPAY ==
[2020-09-27 13:34] VITALS: BMI 32.7
[2020-10-09 18:23] VITALS: BP 156/99; PULSE 90; RESP 18; TEMP 36.3; O2SAT 96; BMI 31.3
[2020-10-09 18:34] VITALS: BP 161/93; PULSE 84; RESP 14; O2SAT 97
--- NOTE | 2020-10-09 18:53 | CT_ITS ---
STUDY: CT ABDOMEN AND PELVIS WITH CONTRAST REASON FOR EXAM: Female, 50 years old. Right upper quadrant pain. RADIATION DOSAGE (If Supplied By Facility): CTDIvol = ( 16.67 ) mGy, DLP = ( 1123.39 ) mGycm TECHNIQUE: Transaxial images were obtained from the dome of the diaphragm to the symphysis pubis without oral contrast. 100 ml of ISOVUE-370 contrast was administered. Sagittal and coronal images were reconstructed. Individualized dose optimization techniques were used for this CT. COMPARISON: Ultrasound dated 09/27/20. CT dated 10/16/19. FINDINGS: The visualized lung bases are clear. The visualized portions of the heart and pericardium are within normal limits. There are calcified gallstones noted. The liver is low in density, consistent with fatty infiltration. The spleen is normal in size. The pancreas is within normal limits. The adrenal glands are within normal limits. There are no renal or ureteral stones. There is no hydronephrosis. There are no focal renal lesions. Normal visualized stomach. There is no bowel obstruction or inflammation. There is a large amount of stool in the colon, consistent with constipation. The appendix is visualized and appears normal. There is a stable small fat-containing umbilical hernia. The aorta is normal in caliber. There is no abdominal or pelvic free air, free fluid, fluid collection or lymphadenopathy. There are no destructive osseous lesions. CT/Abdomen/Pelvis W IV Cont ONLY IMPRESSION: Gallstones. Fatty liver. No bowel obstruction or inflammation. Normal appendix. Constipation. Normal kidneys. No hydronephrosis. Electronically Signed: Gino Jimenez MD at 20:48 EST Tel , Service support ,
--- NOTE | 2020-10-09 19:21 | ED.VISSUMM ---
- ER Visit Summary Date of Service: 10/09/20 Chief Complaint: Abdominal pain History of Present Illness: The patient is a 50 F presenting with abdominal pain. Patient states this has been ongoing for the past 2 months but worsened today. She states she was scheduled to have her gallbladder removed on October 03 but it was not approved by her insurance. She was admitted on September 27. She states at that time she was given the option of going home and coming back for surgery. She was later advised by her insurance that they would not cover the surgery. She states the pain is worse with eating. She has been taking [place] x1 each day. Physical Examination: Vitals are stable. Patient is afebrile. Alert no acute distress. HEENT exam is unremarkable. Neck is supple. Lungs are clear and equal bilaterally. Heart is regular rate and rhythm. Abdomen is soft right upper quadrant tenderness with no guarding or rebound Extremities are unremarkable. Skin is warm and dry. Remainder of exam is unremarkable. Emergency Department Course and Treatment: Patient given morphine, Zofran IV. CBC shows white count 15.7. Chemistries unremarkable other than alk phos 159, ALT 67. Lipase 121. CT abdomen pelvis shows Gallstones. Fatty liver. No bowel obstruction or inflammation. Normal appendix. Constipation. Normal kidneys. No hydronephrosis. On reevaluation, her pain has improved. She is given prescription for Floriss[place] because she states she has almost run out of this medication. She has MiraLAX at home that she will take. Discussed with Dr. Pham. Patient is advised to call the office tomorrow. Advised return to ED for worsening complaints. Disposition: Discharge home Impression: Cholelithiasis This note was generated with [employer] dictation software. It may contain incorrect words, spelling, and punctuation that were not noted in review of the chart prior to signing ED Disposition - Plan for ED Patient: Instructions: ED Gallstones with Biliary Colic Prescriptions: Hydrocodone Bitart/Apap 5-325 [Floriss[place] 5MG-325MG] 1 tab PO Q6H PRN PRN 3 Days #10 tab PRN Reason: Pain Prescription Printed Referrals: Keila Pham MD [STAFF PHYSICIAN] -
[2020-10-09] MEDS: 0.9% Normal Saline 1,000 ML 1000 ML IV (19:46)
[2020-10-09] MEDS: Morphine 4 MG/ML Syringe IV (19:46)
[2020-10-09] MEDS: Ondansetron 4 MG/2 ML Vial IV (19:46)
[2020-10-09 19:57] LABS: Absolute Lymphocyte Count 3.68 X10^3/uL (0.83-4.51); Absolute Neutrophil Count 10.4 X10^3/uL (2.0-7.7); Basophil% 0.6 % (0-1); Eosinophil# 0.35 X10^3/uL; Eosinophils% 2.2 % (0-5); Hematocrit 44.8 % (37-47); Lymphocyte # 3.68 X10^3/ul (4.0); Lymphocyte % 23.4 % (19-41); Mean Corp Hgb Conc 33.5 g/dL (32-36); Mean Corpuscular Hgb 29.6 pg (27.0-32.0); Mean Corpuscular Volume 88.5 fL (81-99); Monocyte# 1.07 X10^3/uL; Monocyte% 6.8 % (0-10); NRBC Flagged by Analyzer 0 % (0-5); Neutrophil # 10.37 X10^3/uL (2.7-7.7); Neutrophil % 65.9 % (47-70); Platelet Count 338 K/mm3 (150-450); RBC Distribution Width CV 12.9 % (11.6-14.6); RBC Distribution Width SD 41.5 fl (35.1-43.9); Red Blood Count 5.06 M/mm3 (4.2-5.4); White Blood Count 15.7 K/mm3 (4.4-11.0)
[2020-10-09 20:07] LABS: AST(SGOT) 36 U/L (15-37); Alanine Aminotransfer ALT/SGPT 67 U/L (13-56); Albumin, Serum 3.9 g/dL (3.2-5.0); Alkaline Phosphatase 159 U/L (45-117); Anion Gap 5 (5-15); BUN 16 mg/dL (7-18); BUN/Creat Ratio 16.5 RATIO (10-20); Calcium,Total 9.1 mg/dL (8.5-10.1); Chloride 105 mmol/L (98-107); Creatinine, Serum 0.97 mg/dL (0.55-1.02); EST Glomerular Filtration Rate 65 mL/min (>60); Est Glom Filt Rate - Afr Amer 78 mL/min (>60); Estimated Creatinine Clearance 67.47 ml/min; Glucose 145 mg/dL (74-106); Lipase 121 U/L (73-393); Potassium 3.6 mmol/L (3.5-5.1); Protein, Total 7.9 g/dL (6.4-8.2); Sodium Level 138 mmol/L (136-145)
[2020-10-09 21:04] VITALS: PULSE 62; RESP 15; O2SAT 97
--- NOTE | 2020-10-09 21:04 | ED.DEP ---
ED Disposition - Plan for ED Patient: Instructions: ED Gallstones with Biliary Colic Prescriptions: Hydrocodone Bitart/Apap 5-325 [[place] 5MG-325MG] 1 tab PO Q6H PRN PRN 3 Days #10 tab PRN Reason: Pain Prescription Printed Referrals: Keila Pham MD [STAFF PHYSICIAN] -
[2020-10-09 21:24] VITALS: BP 132/72; PULSE 84; RESP 15; O2SAT 98
== END 2020-10-09 21:25 | disposition home or self-care (01) ==
LOC: ED 19:11
PROVIDERS: Emergency Provider Emergency Medicine; PCP Physician Assistant
DX: K80.20 Calculus of gallbladder without cholecystitis without obstruction (principal); K76.0 Fatty (change of) liver, not elsewhere classified; E11.9 Type 2 diabetes mellitus without complications; J45.909 Unspecified asthma, uncomplicated; M79.7 Fibromyalgia; M06.9 Rheumatoid arthritis, unspecified; Z72.0 Tobacco use
CPT/HCPCS: 74177; 80053; 83690; 85025; 96361; 96374; 96375; 99285; J7030; Q9967; A4216; J2405

== ENCOUNTER → 2020-11-23 10:23 | Outpatient (CLI) | payer MEDICAID, SELFPAY ==
[2020-09-27 13:34] VITALS: BMI 32.7
--- NOTE | 2020-09-28 13:47 | HP.PCM_ITS ---
History and Physical Date of Admission: 09/29/20 HISTORY AND PHYSICAL ? Anuja Spencer 1970 ? ? PRIMARY PHYSICIAN: Jae Wei MD ? CHIEF COMPLAINT: abdominal pain ? HPI: The patient is a 50 year old female who was admitted two days ago for severe RUQ abdominal pain and signs/symptoms of acute cholecystitis. Surgery could not be done until today, patient was discharged from hospital and presents now for laparoscopic cholecystectomy ? US 09/02/2020 IMPRESSION: Findings are suggestive of hepatic steatosis or less likely liver cirrhosis. Gallbladder stones. US 09/27/2020 IMPRESSION: Hepatomegaly and fatty infiltration of the liver are Multiple gallstones. ? PAST MEDICAL HISTORY ? Abdominal pain, right lower quadrant 04/02/2012 ? Arthritis of hand ? ? bilat ? Asthma ? ? Backache, unspecified 05/08/2010 ? Bipolar affective (HCC) ? ? pseudo seizure ? Chronic right shoulder pain 11/23/2016 ? Diabetes mellitus, type II (HCC) ? ? Fibromyalgia ? ? Flat back ? ? and neck ? Fracture ? ? Hand pain 03/07/2011 ? Hyperlipidemia ? ? Hyperlipidemia ? ? Memory loss of unknown cause ? ? Microscopic hematuria ? ? Other chest pain 03/31/2019 ? Admit 03/07-03/09/19 [facility] ruled out with negative myocardial perfusion test, gated EF 84%, ? Pneumonia ? ? Positive PPD 1997 ? Reported/ ? Rheumatoid arthritis (HCC) ? ? Sacroiliitis, not elsewhere classified (HCC) 07/10/2013 ? Seizure (HCC) ? ? Tendinitis of hand 03/07/2011 ? Thyroid disorder ? ? Trigger finger (acquired) 03/07/2011 ? Varicella w/o complication ? ? As a child ? PAST SURGICAL HISTORY ? DELIVERY ONLY ? ? ? , low transverse ? CT BRAIN WO ? 06/07/2020 ? CT negative except decrease aeration mastoid air cells ? D&C, DIAG AND/OR THERAPEUTIC ? ? ? Dilation & curettage Possibly 3 for misc ? excision, benign tumor, fallopian tube ? 1998 ? Laparoscopic removal of one tube ? PAST SURGICAL HISTORY OF ? ? ? left foot repair ? ? Current Outpatient Medications ? DULoxetine (CYMBALTA) 30 mg capsule TAKE 1 CAPSULE ONCE DAILY ? metFORMIN ER (GLUCOPHAGE XR) 500 mg 24 hr tablet Take 2 tablets by mouth daily with breakfast. ? tofacitinib tablet 5 mg (XELJANZ) Take 1 tablet (5 mg) by mouth twice daily. ? methotrexate sodium 25 mg/mL soln INJECT 0.6 ML SUBCUTANEOUSLY ONCE WEEKLY DIRECTED. MULTI-DOSE VIAL.DISCARD 28 DAYS AFTER INITIAL USE. STORE AT ROOM TEMPERATURE. ? Insulin Syringe-Needle U-100 (BD INSULIN SYRINGE) 1 mL 25 gauge x 5/8 syrg Use once weekly with methotrexate injections ? cyclobenzaprine (FLEXERIL) 10 mg tablet Take 1 tablet by mouth three times daily as needed. Take at bedtime ? levothyroxine (LEVOXYL) 25 mcg tablet Take 1 tablet by mouth once daily. Take on empty stomach. For Thyroid ? atorvastatin (LIPITOR) 20 mg tablet Take 1 tablet by mouth daily at bedtime. For cholesterol. ? folic acid 1 mg tablet Take 5 tablets by mouth once daily. ? albuterol HFA (VENTOLIN HFA) 90 mcg/actuation inhaler Inhale 2 Puffs as instructed every 4 hours as needed for Wheezing/Shortness of Breath. ? albuterol (PROVENTIL) 2.5 mg /3 mL (0.083 %) nebulizer solution Use 3 mL via nebulizer every 6 hours as needed for Wheezing/Shortness of Breath. Use over 5-15minutes. ? blood sugar diagnostic (FREESTYLE LITE STRIPS) test strip Test blood sugar(s) 2-4 times daily. Dx: Type 2 DM - Uncontrolled E11.65 Insulin: No ? Lancets lancets Test blood sugar(s) 1-2 times daily. Dx: Type 2 DM - Uncontrolled E11.65 Insulin: No ? blood sugar diagnostic (BLOOD GLUCOSE TEST) test strip Test blood sugar(s) 1-2 times daily. Dx: Type 2 DM - Uncontrolled E11.65 Insulin: No ? BD TUBERCULIN SYRINGE 1 mL 27 x 1/2 syrg UNITS once weekly WITH methotrexate ? acetaminophen (TYLENOL) 325 mg tablet Take 2 tablets by mouth every 6 hours as needed. ? ? ALLERGIES: Benadryl [Diphenhydramine Hcl], Cipro [Ciprofloxacin], Gabapentin, Penicillins, and Sulfa (Sulfonamide Antibiotics) ? PERSONAL HISTORY: Social History ?Tobacco Use ? Smoking status: Current Every Day Smoker ? ? Packs/day: 1.00 ? ? Years: 30.00 ? ? Pack years: 30.00 ? ? Types: Cigarettes ? Smokeless tobacco: Never Used ? Tobacco comment: Pt has cut back to 5 cigarettes daily. Substance Use Topics ? Alcohol use: No ? ? Comment: Previous ETOH abuse. ? Drug use: No ? FAMILY HISTORY ? Cancer Mother 65 ? colon ? No Ocular Disease Mother ? ? Heart Father ? ? Arthritis Sister ? ? rheumatoid ? Cancer Maternal Grandmother ? ? poss pancreatic ? ? REVIEW OF SYSTEMS: General: The patient NOTES fatigue, denies weight loss, denies weight gain, denies feeling hot, and denies feelings of cold. Eyes: The patient denies glaucoma, denies eye injury/surgery, wears glasses or contacts. Ear/Nose/Throat: The patient denies allergies, denies hayfever, denies ear infections, and denies bloody noses. Cardiovascular: The patient denies chest pain, denies heart disease, NOTES high blood pressure,denies cardiac stent, denies prior heart attack, denies irregular heart beat, NOTES high cholesterol, denies poor circulation, denies heart failure, other cardiac issues, NOTES claudication, NOTES cold feet, denies peripheral arterial stent. Respiratory: has seasonal asthma, denies tuberculosis, NOTES pneumonia, denies frequent cough, denies pulmonary embolism, NOTES shortness of breath, and denies coughing up blood. Gastrointestinal: see HPI, patient notes constipation - has no bowel movement up to 3-4 days, denies difficulty swallowing, denies acid reflux, denies ulcers, denies vomiting, denies jaundice/hepatitis, NOTES gallbladder problems, denies black or tarry stools, denies hemorrhoids, denies bleeding from rectum, denies diverticulitis, denies constipation, denies diarrhea, denies loss of stool control, and denies hernias. Kidney/Bladder: The patient denies kidney stones, denies urine infections, and denies bloody urine. Skin: The patient denies a history of skin cancer, denies bleeding/changing moles, and denies a history of skin rash. Neurologic: The patient NOTES a history of epilepsy/convulsions, NOTES headaches, NOTES head/spinal injuries, and denies stroke/TIA. Psychiatric: The patient denies psychiatric medications, NOTES depression, and denies voices, denies substance abuse. Endocrine: has diabetes, has hypothyroidism, and denies hormonal problems. Hematologic: The patient denies a history of bruising, denies bleeding, and denies anemia, denies blood clots. Infections: The patient denies a history of measles and mumps, denies rheumatic fever, and denies sexually transmitted diseases. Musculoskeletal: patient complains of pain all over due to fibromyalgia, also has RA, has had back pain/injury, NOTES back problems, denies sciatica, NOTES knee/foot trouble, NOTES arthritis, or denies gout. When was patient's last Mammogram screening? 08/2020 ? PHYSICAL EXAMINATION: General: The patient is 50 year old female, well nourished, well hydrated in no acute distress. The patient is oriented to time, place, and person. VITALS: Temp 95.6F HR 146/71 HR 68 RR 18 Head ? Normocephalic. EOM intact with sclera clear and no icterus noted. Wearing glasses. Mouth with mucus membranes moist. Neck - supple with no jugular venous distention noted. Trachea is midline. Lungs ? clear to auscultation. Normal breath sounds. No rales/rhonchi/wheezing noted. No labored breathing noted, such as retractions. No cough heard. Heart ? normal S1 and S2 auscultated. No rubs/clicks/murmurs noted. Regular rate. Abdomen ? soft but with RUQ tenderness. Normal bowel sounds. No abdominal bruits noted. Difficult to determine if any masses or organomegaly due to body habitus. Extremities ? no calf tenderness noted. No pitting edema noted. Skin ? normal skin integrity. Neurological ? gait normal, no focal deficits noted. Psych ? calm and appropriate ? LABORATORY VALUES: As Noted RADIOLOGIC STUDIES: As Noted ? ? IMPRESSION: cholelithiasis/cholecystitis ? PLAN: I have discussed the above with the patient. I have offered laparoscopic cholecystectomy, possible cholangiograms. I have explained the procedure to the patient. I have counseled the patient as to the risks of the procedure, including but not limited to: infection, bleeding, injury to any blood vessels/nerves, scar tissue, injury to any intrabdominal organs, injury to bowel/bladder, injury to the common bile duct/biliary tree, bile leakage, intraabdominal abscess/bleeding, hernias at incisional sites, wound infections, non resolution of her symptoms complaints, complications of anesthesia, etc. ? the patient understands. ? The patient was offered a surgery/procedure. The provider and patient have discussed in detail the risk of exposure to and/or potential harm posed by the COVID-19 virus with having a surgery/procedure at this time versus the risk of? delaying the surgery/procedure. It is not possible to know either the risk of delaying the surgery or procedure or chance of getting an infection with perfect accuracy, but a joint decision was made between the patient and the provider ?to proceed at this time with the scheduled surgery/procedure. ? The patient wishes to proceed. I have answered all questions to the patient?s satisfaction and the patient has no further questions. ? Keila Pham MD
== END ==
PROVIDERS: PCP Physician Assistant; Visit Provider Surgery
DX: Z53.9 Procedure and treatment not carried out, unspecified reason (principal)

== ENCOUNTER 2020-11-30 04:12 | Emergency (ER) | payer MEDICAID, SELFPAY ==
[2020-11-30 04:13] VITALS: BP 164/93; PULSE 87; RESP 18; TEMP 36.7; O2SAT 96; BMI 34.1
--- NOTE | 2020-11-30 04:25 | ED.DCSUM_ITS ---
History of Present Illness Chief Complaint: Headache Informant: Patient Narrative: 50-year-old female with a history of migraines states that around 9 PM tonight she developed a migraine described as frontal and throbbing. Associated with nausea and photophobia. She has a history of migraines but does not take anything prophylactically or abortive currently. She states that she had surgery in October and has not yet resumed all of her medications. She does not know all of her medications. She states that she needs to visit with her doctor and figure out what meds she should take and discuss migraine medications. Her last migraine which required ED visit was in May of last year which she got good resolution of her headache with Reglan and Cogentin. Denies any neurologic deficits. - Past Medical History (1) Bipolar disorder Status: Chronic (2) Chronic stable asthma Status: Chronic (3) Fibromyalgia Status: Chronic (4) Rheumatoid arthritis Status: Chronic Past Medical History - Allergies and Home Meds Allergies/Adverse Reactions: Allergies ciprofloxacin [From Cipro] Allergy (Verified 10/09/20 18:21) Hives ciprofloxacin HCl [From Cipro] Allergy (Verified 10/09/20 18:21) Hives Penicillins Allergy (Verified 10/09/20 18:21) Hives Sulfa (Sulfonamide Antibiotics) Allergy (Verified 10/09/20 18:21) Hives diphenhydramine HCl [From Benadryl] Adverse Reaction (Verified 10/09/20 18:21) HYPERACTIVITY Primary Care Physician: Cheli Olmedo PA [Primary Care Provider] - Past Medical History: - - Migraines hypothyroidism Surgical History: noncontributory, - - She had a toothpick removed from her feet. Smoking Status: Current every day smoker - Family History Paternal Family History: Family History (Last Updated 03/07/19 @ 21:[address] Osorio Francisco MD) Sister Arthritis Father Heart disease Mother Cancer Grandmother Cancer Family History: Reports: Heart Disease Review of Systems General: Denies: Chills, Fever, Sweats Eyes: Denies: Visual changes - bilaterally, Diplopia ENT: Denies: Rhinorrhea, Sore throat Cardiovascular: Denies: Chest pain, Palpitations Respiratory: Denies: Dyspnea, Cough, Dyspnea on exertion Gastrointestinal: Reports: Nausea. Denies: Abdominal pain, Vomiting, Diarrhea, Melena, Hematochezia Genitourinary: Denies: Dysuria, Hematuria, Frequency Musculoskeletal: Denies: Back pain, Extremity Pain Skin: Denies: Rash, Wounds Neurological: Reports: Headache. Denies: Weakness, Numbness Physical Exam Vital Signs/Narrative: Vital Signs Temp Pulse Resp BP Pulse Ox 11/30/20 04:13 98.1 F 87 18 164/93 H 96 Inital Vital Signs reviewed: Yes General: Well nourished, Well developed, No Acute Distress, - - Sitting in a darkened room Head: Normocephalic, Atraumatic Eyes: Perrl, EOMI ENT: Moist mucous membranes, No rhinorrhea Neck: Supple, Nontender Cardiovascular: Regular rate, Regular rhythm, No murmurs Respiratory: No distress, CTA bilaterally, Chest nontender Abdomen: Soft, Nontender, Nondistended, Normal bowel sounds Back: Nontender, Normal Inspection Extremities: Nontender, No edema Skin: Normal color, No rash Neurological: Alert, Oriented x3, Cranial nerves II-XII grossly intact, Normal Strength, Normal Sensation Psychological: Normal affect, Normal Mood Diagnostic/Tx/Re-eval - Medical Decision Making Patient's most recent brain imaging was May of last year and negative. Patient received Reglan and Cogentin and IV fluids. She is feeling significantly better. I will write for her to stop some of those pills at home to take if she gets another migraine. I recommend that she follow-up with primary care and review her medication she is supposed to be on and to discuss abortive or daily preventative migraine medication. ED Disposition - Plan for ED Patient: Disposition: Home or Assisted Living Diagnosis: Migraine Instructions: ED, Migraine (Classical) Prescriptions: Benztropine [Cogentin] 2 mg PO Q6H PRN #10 tablet PRN Reason: Migraine Symptoms Transmission Status: Pending to [facility] Metoclopramide [Reglan] 10 mg PO Q6H PRN #10 tablet PRN Reason: Headache Transmission Status: Pending to [facility] Referrals: Cheli Olmedo PA [Primary Care Provider] - As soon as possible
[2020-11-30] MEDS: 0.9% Normal Saline 1,000 ML 999 ML IV (04:53)
[2020-11-30] MEDS: Metoclopramide 10 MG/2 ML Vial IV (04:53)
[2020-11-30 05:40] VITALS: BP 140/72; PULSE 70; RESP 16; O2SAT 98
== END 2020-11-30 06:00 | disposition home or self-care (01) ==
PROVIDERS: Emergency Provider Emergency Medicine; PCP Physician Assistant
DX: G43.909 Migraine, unspecified, not intractable, without status migrainosus (principal); M79.7 Fibromyalgia; M06.9 Rheumatoid arthritis, unspecified; F17.200 Nicotine dependence, unspecified, uncomplicated
CPT/HCPCS: 96361; 96374; 96375; 99284; J7030

== ENCOUNTER 2021-03-17 17:10 | Emergency (ER) | payer MEDICAID, SELFPAY ==
[2021-03-17 17:11] VITALS: BP 154/85; PULSE 83; RESP 18; TEMP 36.9; O2SAT 96; BMI 32.5
[2021-03-17 18:45] LABS: Color, Urine Yellow (Yellow); Glucose, Dipstick 100 mg/dl (Normal); Ketone-Dipstick Negative (Negative); Leukocyte Esterase-Dipstick Negative /ul (Negative); Nitrite-Dipstick Negative (Negative); Occult Blood-Urine Negative /ul (Negative); Protein-Dipstick Negative (Negative); Urine Bilirubin Dipstick Negative (Negative); Urine Clarity Clear (Clear); Urine Urobilinogen Normal (Normal)
[2021-03-17 18:46] LABS: Bacteria 0 SEEN /hpf (None Seen); Mucous, Urine 0 SEEN /hpf (<or=2+); Red Blood Cells-Urine 0 SEEN /hpf (0-5); Squamous Epithelial Cells - UA 0 SEEN /hpf (5-10); White Blood Cells 0 SEEN /hpf (0-5)
--- NOTE | 2021-03-17 18:50 | CT_ITS ---
STUDY: CT ABDOMEN AND PELVIS WITH CONTRAST REASON FOR EXAM: Female, 50 years old. Abdominal pain -- IV PO Contrast RADIATION DOSAGE (If Supplied By Facility): CTDIvol = ( 22.185 ) mGy, DLP = ( 1178.19 ) mGycm TECHNIQUE: Transaxial images were obtained from the dome of the diaphragm to the symphysis pubis without oral contrast. Oral and amp; IV Gastrografin and amp; 100mL Isovue-300 was administered. Sagittal and coronal images were reconstructed. Individualized dose optimization techniques were used for this CT. COMPARISON: CT of the abdomen and pelvis dated October 09, 2020 FINDINGS: The visualized lung bases are unremarkable. The visualized portions of the heart are within normal limits. Normal liver. There is non-visualization of the gallbladder, which may be secondary to either contraction or a prior cholecystectomy. Normal spleen. Normal pancreas. Normal bilateral adrenal glands. Normal right kidney. Normal left kidney. Normal visualized stomach. Normal small intestine. There is acute inflammation of the diverticulum of the proximal sigmoid colon in the left paracolic gutter with mild pericolonic inflammatory stranding. No perforation or free air is present. Multiple diverticula are present in the transverse and descending colon and sigmoid colon. The appendix is visualized and appears normal. Normal abdominal aorta. Normal inferior vena cava. Normal retroperitoneum. Normal urinary bladder. Normal visualized uterus and adnexa. Normal abdominal wall. Normal osseous structures. CT/Abdomen/Pelvis WITH Contrast IMPRESSION: 1. Mild acute sigmoid diverticulitis Electronically Signed: Romulo Bean MD at 21:37 EDT , Service support ,
[2021-03-17 18:51] LABS: Absolute Lymphocyte Count 4.07 X10^3/uL (0.83-4.51); Absolute Neutrophil Count 10.2 X10^3/uL (2.0-7.7); Basophil# 0.12 X10^3/uL; Basophil% 0.7 % (0-1); Eosinophil# 0.56 X10^3/uL; Eosinophils% 3.4 % (0-5); Hematocrit 46.5 % (37-47); Hemoglobin 15.2 g/dL (12.0-15.0); Lymphocyte # 4.07 X10^3/ul (0.83-4.51); Mean Corp Hgb Conc 32.7 g/dL (32-36); Mean Corpuscular Volume 88.6 fL (81-99); Monocyte# 1.13 X10^3/uL; NRBC Flagged by Analyzer 0 % (0-5); Neutrophil # 10.19 X10^3/uL (2.7-7.7); Neutrophil % 62.8 % (47-70); Platelet Count 325 K/mm3 (150-450); RBC Distribution Width CV 13.5 % (11.6-14.6); RBC Distribution Width SD 44.1 fl (35.1-43.9); Red Blood Count 5.25 M/mm3 (4.2-5.4); White Blood Count 16.3 K/mm3 (4.4-11.0)
--- NOTE | 2021-03-17 18:51 | EDS_ITS ---
HPI HPI - GI History of Present Illness Chief Complaint: Abd Pain Informant: patient Abdominal Pain/Flank Pain Onset: Days (2) Context: Gradual Onset Timing: Continuous Quality: Sharp Location: RLQ and LLQ Worsened by: Movement Relieved by: Nothing Nausea/Vomiting/Emesis GI Symptom: Positive for Nausea and Vomiting Quality: Negative for Coffee ground and Hematemesis Diarrhea/Melena/Hematochezia GI Symptom: Negative for Diarrhea, Melena and Hematochezia Associated Symptoms Associated Symptoms: Negative for Dysuria and Hematuria Narrative Narrative: Patient presents with lower abdominal pain that has been getting worse over the past 2 days. Patient describes her pain as sharp. Patient states pain is over the lower abdomen. Patient states the pain is worse with any movement. Patient admits to some nausea and vomiting. Patient states she has a history of diverticulitis. Patient denies any dysuria or hematuria. Patient states she saw her primary care physician who did a urinalysis which was normal. Patient states the pain radiates into her back at times. PFSH [facility] Medical History Atypical chest pain Bipolar disorder Chronic stable asthma Hypertension Hypothyroidism Multiple thyroid nodules Rheumatoid arthritis Thyroid nodule Home Medications benztropine 2 mg PO Q6H PRN #10 tablet 11/30/20 [Rx Last Taken Unknown] levothyroxine 25 mcg PO DAILY 11/30/20 [History Last Taken Unknown] metformin 1,000 mg PO DAILY 11/30/20 [History Last Taken Unknown] methotrexate sodium 0.6 mg IM QWEEK 11/30/20 [History Last Taken Unknown] metoclopramide HCl 10 mg PO Q6H PRN #10 tablet 11/30/20 [Rx Last Taken Unknown] cefdinir 300 mg PO BID #20 cap 03/17/21 [Rx Last Taken Unknown] famotidine 20 mg PO BID 03/17/21 [History Last Taken Unknown] lisinopril 5 mg PO DAILY 03/17/21 [History Last Taken Unknown] metronidazole 500 mg PO Q6H #40 tab 03/17/21 [Rx Last Taken Unknown] Allergy/AdvReac Type Severity Reaction Status Date / Time ciprofloxacin [From Cipro] Allergy Hives Verified 03/17/21 17:10 ciprofloxacin HCl Allergy Hives Verified 03/17/21 17:10 [From Cipro] Penicillins Allergy Hives Verified 03/17/21 17:10 Sulfa (Sulfonamide Allergy Hives Verified 03/17/21 17:10 Antibiotics) diphenhydramine HCl AdvReac HYPERACTIVI Verified 03/17/21 17:10 [From Benadryl] TY Family History (Updated 03/07/19 @ 21:[address] Osorio Francisco MD) Sister Arthritis Father Heart disease Mother Cancer Grandmother Cancer Surgical History History of History of cholecystectomy History of tubal ligation Social History Smoking Status: Current every day smoker tobacco type: cigarettes alcohol intake: never substance use type: does not use ROS ROS ED Constitutional Constitutional ED: Denies chills or fever(s) Eyes Eyes: Denies blurry vision or change in vision ENT ENT ED: Denies rhinorrhea or sore throat Cardiovascular Cardiovascular: Denies chest pain or palpitations Respiratory/Chest Respiratory/Chest: Denies cough or dyspnea Gastrointestinal Gastrointestinal: Denies nausea or vomiting Genitourinary Genitourinary ED: Denies dysuria or hematuria Musculoskeletal Musculoskeletal: Denies back pain or neck pain Integumentary Denies abscess or rash Neurologic Neurologic: Denies headache(s) or weakness Allergic/Immunologic Allergic/Immunologic ED: Denies mouth swelling or urticaria EXAM Physical Exam Const Vital Signs: 03/17/21 17:11 03/17/21 19:33 03/17/21 20:42 Temperature 98.5 F Temperature Source Temporal Pulse Rate 83 74 74 Respiratory Rate 18 14 16 Blood Pressure 154/85 H 148/82 H 142/82 H Blood Pressure Mean 108 104 102 Pulse Ox 96 99 97 Oxygen Delivery Method Room Air Room Air Room Air Positive well nourished and well developed General Appearance ED: well developed HEENT Reports moist mucous membranes Neck supple and no JVD Resp normal respiratory effort and clear to auscultation bilaterally Cardio regular rate, regular rhythm and no murmurs GI normal to inspection, nondistended, normoactive bowel sounds and non-distended Auscultation: normoactive bowel sounds Palpation: soft and tender epigastric, LLQ, RLQ, LUQ, RUQ and suprapubic; Negative for guarding or rebound tenderness present Extremity normal to inspection General Extremety ED: Negative for edema or tenderness General Extremity: Negative for edema Neuro oriented x3, CN's II-XII intact bilaterally and no sensory deficits noted Sensorium / Orientation: alert Motor Exam: strength 5/5 throughout Psych mental status grossly normal Skin no rashes or lesions noted MDM MDM MDM Narrative Medical decision making narrative: Patient was given IV fluids, morphine, and Zofran. CBC shows a white blood cell count of 16.3. This is consistent with prior results. Basic metabolic profile and hepatic profile were obtained and were within normal limits except for an elevated glucose of 269. Urinalysis does not show any evidence of urinary tract infection. CT scan of the abdomen pelvis was obtained. There is mild sigmoid diverticulitis. There is no perforation. There is no obstruction. This was interpreted by the radiologist and reviewed by myself. Patient is feeling better on reevaluation. Due to her allergies to Cipro, sulfa, and penicillins, patient was given prescriptions for cefdinir and Flagyl. Patient was instructed to start with a clear liquid diet and advance as tolerated. Patient was instructed to follow-up with her primary care physician in 3 to 5 days. Patient understood and was agreeable with the plan. All questions were answered. Lab Data Attestation: I reviewed the patient's lab results. Labs: Laboratory Results - last 24 hr 03/17/21 03/17/21 03/17/21 18:40 18:40 18:46 WBC 16.3 H RBC 5.25 Hgb 15.2 H Hct 46.5 MCV 88.6 MCH 29.0 MCHC 32.7 RDW Std Deviation 44.1 H RDW Coeff of Mariia 13.5 Plt Count 325 MPV 10.0 Immature Gran % (Auto) 1.100 H Neut % (Auto) 62.8 Lymph % (Auto) 25.0 [place] % (Auto) 7.0 Eos % (Auto) 3.4 Baso % (Auto) 0.7 Absolute Neuts (auto) 10.2 H Absolute Lymphs (auto) 4.07 Nucleated RBC % 0 Sodium Potassium Chloride Carbon Dioxide Anion Gap BUN Creatinine Estim Creat Clear Calc Est GFR (MDRD) Af Amer Est GFR (MDRD) Non-Af BUN/Creatinine Ratio Glucose Calcium Total Bilirubin 0.30 Direct Bilirubin 0.11 AST 31 ALT 52 Alkaline Phosphatase 178 H Total Protein 7.8 Albumin 3.7 Globulin 4.1 Lipase 204 Serum , Qual Urine Color Yellow Urine Clarity Clear Urine pH 6.0 Ur Specific [place] 1.020 Urine Protein Negative Urine Glucose (UA) 100 H Urine Ketones Negative Urine Occult Blood Negative Urine Nitrite Negative Urine Bilirubin Negative Urine Urobilinogen Normal Ur Leukocyte Esterase Negative Urine RBC 0 SEEN Urine WBC 0 SEEN Ur Squamous Epith Cells 0 SEEN Urine Bacteria 0 SEEN Urine Mucus 0 SEEN 03/17/21 03/17/21 18:46 19:40 WBC RBC Hgb Hct MCV MCH MCHC RDW Std Deviation RDW Coeff of Mariia Plt Count MPV Immature Gran % (Auto) Neut % (Auto) Lymph % (Auto) [place] % (Auto) Eos % (Auto) Baso % (Auto) Absolute Neuts (auto) Absolute Lymphs (auto) Nucleated RBC % Sodium 139 Potassium 3.7 Chloride 106 Carbon Dioxide 24.0 Anion Gap 9 BUN 7 Creatinine 0.94 Estim Creat Clear Calc 69.63 Est GFR (MDRD) Af Amer 80 Est GFR (MDRD) Non-Af 66 BUN/Creatinine Ratio 7.4 L Glucose 269 H Calcium 8.5 Total Bilirubin Direct Bilirubin AST ALT Alkaline Phosphatase Total Protein Albumin Globulin Lipase Serum , Qual NEGATIVE Urine Color Urine Clarity Urine pH Ur Specific [place] Urine Protein Urine Glucose (UA) Urine Ketones Urine Occult Blood Urine Nitrite Urine Bilirubin Urine Urobilinogen Ur Leukocyte Esterase Urine RBC Urine WBC Ur Squamous Epith Cells Urine Bacteria Urine Mucus Radiography Diagnostic Testing: Radiology Impression Abdomen/Pelvis CT 03/17/21 18:50 IMPRESSION: 1. Mild acute sigmoid diverticulitis Electronically Signed: Romulo Bean MD at 21:37 EDT , Service support , Discharge Plan Triage Chief Complaint: Abd Pain ED Provider: Shola Ball Dx/Rx/DC Orders Clinical Impression: Diverticulitis Instructions: ED Diverticulitis Prescriptions: New metronidazole [metronidazole] 500 MG tablet 500 mg PO Q6H Qty: 40 RF: 0 cefdinir 300 mg capsule 300 mg PO BID Qty: 20 RF: 0 No Action methotrexate sodium 25 MG/ML solution 0.6 mg IM QWEEK RF: 0 levothyroxine 25 MCG tablet 25 mcg PO DAILY RF: 0 metformin 500 MG tablet 1,000 mg PO DAILY RF: 0 metoclopramide HCl 10 MG tablet 10 mg PO Q6H PRN (Reason: Headache) Qty: 10 RF: 0 benztropine 2 MG tablet 2 mg PO Q6H PRN (Reason: Migraine Symptoms) Qty: 10 RF: 0 famotidine 20 mg tablet 20 mg PO BID RF: 0 lisinopril 5 mg tablet 5 mg PO DAILY RF: 0 Primary Care Provider: Cheli Olmedo Referrals: Cheli Olmedo PA [Primary Care Provider] - 3-5 Days Disposition Disposition: Home, Self Care
[2021-03-17 19:07] LABS: Anion Gap 9 (5-15); BUN 7 mg/dL (7-18); BUN/Creat Ratio 7.4 RATIO (10-20); Calcium,Total 8.5 mg/dL (8.5-10.1); Chloride 106 mmol/L (98-107); Creatinine, Serum 0.94 mg/dL (0.55-1.02); EST Glomerular Filtration Rate 66 mL/min (>60); Est Glom Filt Rate - Afr Amer 80 mL/min (>60); Estimated Creatinine Clearance 69.63 ml/min; Glucose 269 mg/dL (74-106); Potassium 3.7 mmol/L (3.5-5.1); Sodium Level 139 mmol/L (136-145)
[2021-03-17 19:22] LABS: AST(SGOT) 31 U/L (15-37); Alanine Aminotransfer ALT/SGPT 52 U/L (13-56); Albumin, Serum 3.7 g/dL (3.2-5.0); Alkaline Phosphatase 178 U/L (45-117); Bilirubin, Direct 0.11 mg/dL (0.00-0.30); Globulin 4.1 g/dL (2.2-4.2); Lipase 204 U/L (73-393); Protein, Total 7.8 g/dL (6.4-8.2)
[2021-03-17] MEDS: Ondansetron 4 MG/2 ML Vial IV (19:30)
[2021-03-17] MEDS: 0.9% Normal Saline 1,000 ML 1000 ML IV (19:30)
[2021-03-17] MEDS: Morphine 4 MG/ML Syringe IV (19:31)
[2021-03-17 19:33] VITALS: BP 148/82; PULSE 74; RESP 14; O2SAT 99
[2021-03-17 19:53] LABS: Internal QC Validated? YES +Cl - CLEAR BKGD; Pregnancy, Serum, hCG Quali. NEGATIVE Negative
[2021-03-17 20:42] VITALS: BP 142/82; PULSE 74; RESP 16; O2SAT 97
[2021-03-17 22:25] VITALS: BP 140/73; PULSE 67; RESP 16; O2SAT 98
[2021-03-17] MEDS: Cefdinir 300 MG Capsule PO (22:28)
[2021-03-17] MEDS: metroNIDAZOLE 500 MG Tablet PO (22:28)
== END 2021-03-17 22:29 | disposition home or self-care (01) ==
PROVIDERS: Emergency Provider Emergency Medicine; PCP Physician Assistant
DX: K57.32 Diverticulitis of large intestine without perforation or abscess without bleeding (principal); F31.9 Bipolar disorder, unspecified; J45.909 Unspecified asthma, uncomplicated; I10 Essential (primary) hypertension; E03.9 Hypothyroidism, unspecified; M06.9 Rheumatoid arthritis, unspecified; F17.210 Nicotine dependence, cigarettes, uncomplicated; Z79.899 Other long term (current) drug therapy
CPT/HCPCS: 74177; 80048; 80076; 81001; 83690; 84703; 85025; 96361; 96374; 96375; 99285; J7030; Q9967; A4216; J2405

== ENCOUNTER 2021-05-13 07:13 | Emergency (ER) | payer MEDICAID, SELFPAY ==
[2021-05-13 07:15] VITALS: BP 141/103; PULSE 81; RESP 16; TEMP 35.8; O2SAT 98; BMI 32.4
--- NOTE | 2021-05-13 07:36 | CT_ITS ---
STUDY: CT BRAIN WITHOUT CONTRAST REASON FOR EXAM: Female, 50 years old. Headache RADIATION DOSAGE (If Supplied By Facility): CTDIvol = ( 44.99 ) mGy, DLP = ( 745.49 ) mGycm TECHNIQUE: Transaxial CT imaging of the brain was performed without administration of intravenous contrast material. Individualized dose optimization techniques were used for this CT. COMPARISON: 06/07/2020 FINDINGS: Normal soft tissue structures. Normal calvarium. Normal size ventricles and extra-axial spaces for the patient''s age. Normal white matter tracts of the cerebral hemispheres. Normal basal ganglia and thalami. Normal brainstem. Normal cerebellum. There is no intracranial hemorrhage. There are no findings of an acute ischemic infarction. Normal visualized paranasal sinuses. CT/Brain/Head without Contrast IMPRESSION: Normal unenhanced CT scan of the brain. Electronically Signed: Julio Cesar Salmon MD at 9:08 EDT Tel , Service support ,
--- NOTE | 2021-05-13 07:37 | EX.ED.VIS.EY ---
HPI History of Present Illness Chief Complaint: Eye Problem Narrative Narrative: Patient with past medical history of fibromyalgia, migraine headaches, diabetes, hypertension presents with bilateral burning sensation and watery eyes. She denies any fevers or chills. She states that 8 PM last evening, approximately 12 hours ago, she began having blurry vision and right-sided headache similar to previous migraines. She gets lancinating, sharp pain behind her right eye. She denies any loss of vision. No exacerbating or alleviating factors. She has been taking Tylenol without relief. She has a prescription medication at home that she is supposed to take for migraine headaches but does not remember the name. She has not taken it. She states that she has photophobia but denies any phonophobia. No true exacerbating or alleviating factors. She states that her eyes burn. [facility] Medical History Atypical chest pain Bipolar disorder Chronic stable asthma Hypertension Hypothyroidism Multiple thyroid nodules Rheumatoid arthritis Thyroid nodule Home Medications benztropine 2 mg PO Q6H PRN #10 tablet 11/30/20 [Rx Last Taken Unknown] levothyroxine 25 mcg PO DAILY 11/30/20 [History Last Taken Unknown] metformin 1,000 mg PO DAILY 11/30/20 [History Last Taken Unknown] methotrexate sodium 0.6 mg IM QWEEK 11/30/20 [History Last Taken Unknown] metoclopramide HCl 10 mg PO Q6H PRN #10 tablet 11/30/20 [Rx Last Taken Unknown] cefdinir 300 mg PO BID #20 cap 03/17/21 [Rx Last Taken Unknown] famotidine 20 mg PO BID 03/17/21 [History Last Taken Unknown] lisinopril 5 mg PO DAILY 03/17/21 [History Last Taken Unknown] metronidazole 500 mg PO Q6H #40 tab 03/17/21 [Rx Last Taken Unknown] Allergy/AdvReac Type Severity Reaction Status Date / Time ciprofloxacin [From Cipro] Allergy Hives Verified 03/17/21 17:10 ciprofloxacin HCl Allergy Hives Verified 03/17/21 17:10 [From Cipro] Penicillins Allergy Hives Verified 03/17/21 17:10 Sulfa (Sulfonamide Allergy Hives Verified 03/17/21 17:10 Antibiotics) diphenhydramine HCl AdvReac HYPERACTIVI Verified 03/17/21 17:10 [From Benadryl] TY Family History (Updated 03/07/19 @ 21:[address] Osorio Francisco MD) Sister Arthritis Father Heart disease Mother Cancer Grandmother Cancer Surgical History History of History of cholecystectomy History of tubal ligation Social History Smoking Status: Current every day smoker tobacco type: cigarettes alcohol intake: never substance use type: does not use ROS ROS ED ROS Narrative Constitutional: No fever, no chills. HEENT: No sore throat. No neck pain. No loss of vision. Positive bilateral burning sensation of eyes. No rhinorrhea. Cardiovascular: No chest pain. No palpitations. No pedal edema. Respiratory: No cough, no shortness of breath. Abdominal: No abdominal pain. No nausea. No vomiting. Genitourinary: No dysuria. No hematuria. Musculoskeletal: No myalgias. No arthralgias. Neurologic: Positive right-sided headaches. No dizziness. No lightheadedness. Skin: No rash. No change in color. Psychiatric: No depression. No anxiety. EXAM Physical Exam Narrative Exam Narrative: Afebrile. Vital signs noted. HEENT: Normocephalic. Atraumatic. PERRL, EOMI. Neck soft and supple. No point tenderness or step off. No conjunctival injection. No exudate. Cardiovascular: Regular rate and rhythm. No murmurs, rubs, or gallops appreciated. Respiratory: No tachypnea. Lungs clear to auscultation bilaterally. Gastrointestinal: Abdomen soft, nontender, with normoactive bowel sounds. No rebound or guarding. Neurological: Awake. Alert. Nonfocal, nonlateralizing. Skin: No rash. Normal color. No pallor. Musculoskeletal: No pedal edema. Full range of motion extremities. Const Vital Signs: 05/13/21 07:15 Temperature 96.5 F L Temperature Source Temporal Pulse Rate 81 Respiratory Rate 16 Blood Pressure 141/103 H Blood Pressure Mean 115 Pulse Ox 98 Oxygen Delivery Method Room Air MDM MDM MDM Narrative Medical decision making narrative: I reviewed her prior chart. She has not had a CT scan of her brain since 2019 and has not really complained of headache since then. This was obtained and is negative. No hemorrhage or mass. She has an allergy to Benadryl but is able to take Cogentin. She was given Reglan which she takes at home, and Cogentin 1 mg orally. Upon repeat examination, she is resting comfortably. She may have more dry eye and was told to use [id number] lubricating drops as needed. However, as her headache has resolved upon reexamination at approximately 10 AM, she is able to open her eyes and denies any vision changes. She feels markedly improved. She would like to be discharged. I feel she be discharged safely home with follow-up. Return instructions to the emergency department were reviewed. Disposition is discharged home in stable condition. Discharge Plan Triage Chief Complaint: Eye Problem ED Provider: Ricardo Garcia Dx/Rx/DC Orders Prescriptions: No Action methotrexate sodium 25 MG/ML solution 0.6 mg IM QWEEK RF: 0 levothyroxine 25 MCG tablet 25 mcg PO DAILY RF: 0 metformin 500 MG tablet 1,000 mg PO DAILY RF: 0 metoclopramide HCl 10 MG tablet 10 mg PO Q6H PRN (Reason: Headache) Qty: 10 RF: 0 benztropine 2 MG tablet 2 mg PO Q6H PRN (Reason: Migraine Symptoms) Qty: 10 RF: 0 famotidine 20 mg tablet 20 mg PO BID RF: 0 lisinopril 5 mg tablet 5 mg PO DAILY RF: 0 metronidazole [metronidazole] 500 MG tablet 500 mg PO Q6H Qty: 40 RF: 0 cefdinir 300 mg capsule 300 mg PO BID Qty: 20 RF: 0 Primary Care Provider: Cheli Olmedo Referrals: Cheli Olmedo PA [Primary Care Provider] -
[2021-05-13] MEDS: Metoclopramide 10 MG Tablet PO (08:12)
[2021-05-13] MEDS: Benztropine Mesylate 0.5 MG TABLET 1 MG PO (09:09)
== END 2021-05-13 10:23 | disposition home or self-care (01) ==
LOC: ED 07:41
PROVIDERS: Emergency Provider Emergency Medicine; PCP Physician Assistant
DX: R51.9 Headache, unspecified (principal); F31.9 Bipolar disorder, unspecified; I10 Essential (primary) hypertension; E03.9 Hypothyroidism, unspecified; E04.2 Nontoxic multinodular goiter; M06.9 Rheumatoid arthritis, unspecified; F17.210 Nicotine dependence, cigarettes, uncomplicated; Z79.899 Other long term (current) drug therapy
CPT/HCPCS: 70450; 99282

== ENCOUNTER 2021-07-21 16:50 | Emergency (ER) | payer MEDICAID, SELFPAY ==
[2021-07-21 16:51] VITALS: BP 154/96; PULSE 92; RESP 14; TEMP 36.9; O2SAT 98; BMI 31.6
--- NOTE | 2021-07-21 16:59 | EKG12_ITS ---
Test Reason : CP Blood Pressure : / mmHG Vent. Rate : 078 BPM Atrial Rate : 078 BPM P-R Int : 158 ms QRS Dur : 084 ms QT Int : 380 ms P-R-T Axes : 034 -57 020 degrees QTc Int : 433 ms Normal sinus rhythm Left axis deviation Poor R wave progression Abnormal ECG Confirmed by TUSHAR ALVARADO, JAELYN ([id number]), scientific publications editor CHRISTINE TREVIZO ([id number]) on 07/24/2021 10:53:00 AM Referred By: Confirmed By:JAELYN FINLEY MD
--- NOTE | 2021-07-21 17:24 | ED.VIS.CHEST ---
HPI History of Present Illness Chief Complaint: Chest Pain Detail of Chief Complaint: Anterior left parasternal intermittent chest pain Informant: patient Onset/Context/Timing Onset: Weeks Activity at onset: sudden Timing: Intermittent Quality: Positive for Sharp Location: Left Parasternal Current Severity: Mild Maximum Severity: Severe Worsened By: Nothing Relieved By: Nothing Associated Symptoms: Positive for - (Patient question if this could be due to anxiety); Negative for Nausea, Vomiting, Diaphoresis, Dyspnea, Cough, Fever, Lightheadedness, Acid Reflux and Palpitations Narrative Narrative: Patient is a 51-year-old female with multiple medical problems who presents with intermittent left-sided chest pain. She denies any constitutional symptoms. She denies any HEENT symptoms other than nasal congestion. She does report cough which she contributed to her being a smoker. The cough is nonproductive. She denies history of VTE. She denies history of recent travel, surgery, immobilization. She denies leg pain, swelling discoloration. She denies prior episode. There is no history of trauma. She has not noted a rash. She denies GI symptoms. Prior Similar Symptoms: No CVD Risk Factors: Positive for Hypertension and Diabetes; Negative for Hypercholesterolemia and Family History 1' </=55 PE Risk Factors: Negative for Recent Travel/Surgery, Recent Immobilization, Prior DVT or PE and OCP + Smoking + >/=35 TAD Risk Factors: Positive for Hypertension; Negative for Marfan's Syndrome and Family History [facility] Medical History Atypical chest pain Bipolar disorder Chronic stable asthma Hypertension Hypothyroidism Multiple thyroid nodules Rheumatoid arthritis Thyroid nodule Home Medications benztropine 2 mg PO Q6H PRN #10 tablet 11/30/20 [Rx Last Taken Unknown] levothyroxine 25 mcg PO DAILY 11/30/20 [History Last Taken Unknown] metformin 1,000 mg PO DAILY 11/30/20 [History Last Taken Unknown] methotrexate sodium 0.6 mg IM QWEEK 11/30/20 [History Last Taken Unknown] metoclopramide HCl 10 mg PO Q6H PRN #10 tablet 11/30/20 [Rx Last Taken Unknown] cefdinir 300 mg PO BID #20 cap 03/17/21 [Rx Last Taken Unknown] famotidine 20 mg PO BID 03/17/21 [History Last Taken Unknown] lisinopril 5 mg PO DAILY 03/17/21 [History Last Taken Unknown] metronidazole 500 mg PO Q6H #40 tab 03/17/21 [Rx Last Taken Unknown] prednisone 60 mg PO DAILY #15 tablet 07/21/21 [Rx Last Taken Unknown] Allergy/AdvReac Type Severity Reaction Status Date / Time ciprofloxacin [From Cipro] Allergy Hives Verified 07/21/21 16:51 ciprofloxacin HCl Allergy Hives Verified 07/21/21 16:51 [From Cipro] Penicillins Allergy Hives Verified 07/21/21 16:51 Sulfa (Sulfonamide Allergy Hives Verified 07/21/21 16:51 Antibiotics) diphenhydramine HCl AdvReac HYPERACTIVI Verified 07/21/21 16:51 [From Benadryl] TY Family History Sister Arthritis Father Heart disease Mother Cancer Grandmother Cancer Surgical History History of History of cholecystectomy History of tubal ligation Social History (Updated 07/21/21 @ 17:[address] Barron Carreno MD) household members: spouse Smoking Status: Current every day smoker tobacco type: cigarettes alcohol intake: never substance use type: does not use ROS ROS ED Constitutional Constitutional ED: Denies chills, fever(s), subjective, sweats or weight loss Eyes Eyes: Reports none ENT ENT ED: Reports rhinorrhea; Denies ear pain or sore throat Cardiovascular Cardiovascular: Reports as per HPI; Denies orthopnea, palpitations, paroxysmal nocturnal dyspnea or racing heartbeat Respiratory/Chest Respiratory/Chest: Reports cough; Denies dyspnea, dyspnea on exertion, orthopnea, paroxysmal nocturnal dyspnea or sputum Gastrointestinal Gastrointestinal: Denies abdominal pain, diarrhea or vomiting Genitourinary Genitourinary ED: Denies dysuria, hematuria or urinary frequency Musculoskeletal Musculoskeletal: Denies arthralgias, back pain, myalgias or neck pain Integumentary Denies rash Neurologic Neurologic: Denies headache(s), paresthesias or weakness Endocrine Endocrinology: Denies polydipsia, polyphagia or polyuria Hematologic/Lymphatic Hematologic/Lymphatic: Denies easy bleeding or easy bruising EXAM Physical Exam Const Vital Signs: 07/21/21 16:51 Temperature 98.4 F Temperature Source Temporal Pulse Rate 92 Respiratory Rate 14 Blood Pressure 154/96 H Blood Pressure Mean 115 Pulse Ox 98 Oxygen Delivery Method Room Air Positive well nourished, well developed and obese General Appearance ED: well developed and NAD; Negative for pallor Nutritional Appearance: obese HEENT Reports TM's clear and moist mucous membranes normocephalic and atraumatic Tympanic Membrane ED: Yes TM's clear Eyes PERRL and EOMs intact bilaterally General Eye ED: Negative for pale conjunctiva or scleral icterus Neck supple Chest Wall palpation of chest normal Chest: tenderness costochondral junction (Left fourth fifth rib region) Resp normal respiratory effort and clear to auscultation bilaterally Effort and Inspection: respiratory distress Cardio regular rate, regular rhythm, S1 normal heart sound, S2 normal heart sound and no murmurs GI normal to inspection, nondistended, normoactive bowel sounds, soft to palpation, non-tender and non-distended Back/Spine no CVA tenderness; Negative for no thoracic nor lumbar tenderness Cervical Spine: Negative for cervical spine tenderness Extremity normal to inspection Extremity Narrative: There is no asymmetry, swelling, discoloration, leg vein distention, palpable cords or tenderness along the distribution of the deep venous system. General Extremety ED: Negative for edema or tenderness General Extremity: Negative for edema Neuro oriented x3, CN's II-XII intact bilaterally and no sensory deficits noted Sensorium / Orientation: awake and alert Psych mental status grossly normal Skin no rashes or lesions noted and no wounds General Skin Exam: Negative for jaundice or pallor MDM MDM MDM Narrative Medical decision making narrative: Patient was sent to the emergency department by her PCP, TIKI Olmedo for left-sided chest pain has been intermittent for the past 3 weeks. Based on patient's history and physical exam she has findings consistent with costochondritis. Will place on prednisone. Patient was informed this may cause her blood sugar to be higher than normal. This may also be due to rheumatoid arthritis, Burnette syndrome. Discharge Plan Triage Chief Complaint: Chest Pain ED Provider: Barron Carreno Dx/Rx/DC Orders Clinical Impression: Acute costochondritis Instructions: ED Chest Wall Pain, Costochondritis Prescriptions: New prednisone 20 MG tablet 60 mg PO DAILY Qty: 15 RF: 0 No Action methotrexate sodium 25 MG/ML solution 0.6 mg IM QWEEK RF: 0 levothyroxine 25 MCG tablet 25 mcg PO DAILY RF: 0 metformin 500 MG tablet 1,000 mg PO DAILY RF: 0 metoclopramide HCl 10 MG tablet 10 mg PO Q6H PRN (Reason: Headache) Qty: 10 RF: 0 benztropine 2 MG tablet 2 mg PO Q6H PRN (Reason: Migraine Symptoms) Qty: 10 RF: 0 famotidine 20 mg tablet 20 mg PO BID RF: 0 lisinopril 5 mg tablet 5 mg PO DAILY RF: 0 metronidazole [metronidazole] 500 MG tablet 500 mg PO Q6H Qty: 40 RF: 0 cefdinir 300 mg capsule 300 mg PO BID Qty: 20 RF: 0 Primary Care Provider: Cheli Olmedo Referrals: Cheli Olmedo, PA [Primary Care Provider] - 1 Week if not improving Disposition Disposition: Home, Self Care
[2021-07-21 17:52] VITALS: BP 152/92; PULSE 68; RESP 16; O2SAT 98
[2021-07-21 17:54] VITALS: BP 152/92; PULSE 72; RESP 16; O2SAT 97
== END 2021-07-21 17:59 | disposition home or self-care (01) ==
PROVIDERS: Emergency Provider Emergency Medicine; PCP Physician Assistant
DX: M94.0 Chondrocostal junction syndrome [Tietze] (principal); F31.9 Bipolar disorder, unspecified; I10 Essential (primary) hypertension; E03.9 Hypothyroidism, unspecified; J45.909 Unspecified asthma, uncomplicated; M06.9 Rheumatoid arthritis, unspecified; E11.9 Type 2 diabetes mellitus without complications; F17.210 Nicotine dependence, cigarettes, uncomplicated; E66.9 Obesity, unspecified; Z79.84 Long term (current) use of oral hypoglycemic drugs; Z79.899 Other long term (current) drug therapy
CPT/HCPCS: 93005; 99282

== ENCOUNTER 2022-01-05 15:08 | Emergency (ER) | payer MEDICAID, SELFPAY ==
[2022-01-05 15:10] VITALS: BP 148/84; PULSE 73; RESP 15; TEMP 36.8; O2SAT 98; BMI 29.6
--- NOTE | 2022-01-05 15:45 | EX.ED.DYSGE1 ---
HPI <TRAY Monet - Last Filed: 01/05/22 17:17> History of Present Illness Chief Complaint: Syncope Narrative Narrative: 51-year-old female with history of hypertension, hyperlipidemia, diabetes, hypothyroidism who was not always compliant with her daily medications. Patient states that today she woke up and she felt dizzy, she describes this dizziness as a spinning sensation in her unbalanced. Patient was shopping today, states she most fell down several times. Patient denies any head injury, fever chills nausea vomiting. Patient denies having this kind of symptoms in the past. Patient states that she thinks she might have vertigo however never actually been diagnosed with this. PFSH <TRAY Monet - Last Filed: 01/05/22 17:17> PFSH Medical History Atypical chest pain Bipolar disorder Chronic stable asthma Hypertension Hypothyroidism Multiple thyroid nodules Rheumatoid arthritis Thyroid nodule Home Medications prednisone 60 mg PO DAILY #15 tablet 07/21/21 [Rx Last Taken Unknown] diazepam [Valium] 5 mg PO BID PRN 3 Days #10 tab 01/05/22 [Rx Last Taken Unknown] ondansetron 4 mg PO Q8H PRN #10 tab 01/05/22 [Rx Last Taken Unknown] Allergy/AdvReac Type Severity Reaction Status Date / Time ciprofloxacin [From Cipro] Allergy Hives Verified 01/05/22 15:09 ciprofloxacin HCl Allergy Hives Verified 01/05/22 15:09 [From Cipro] Penicillins Allergy Hives Verified 01/05/22 15:09 Sulfa (Sulfonamide Allergy Hives Verified 01/05/22 15:09 Antibiotics) diphenhydramine HCl AdvReac HYPERACTIVI Verified 01/05/22 15:09 [From Benadryl] TY Family History Sister Arthritis Father Heart disease Mother Cancer Grandmother Cancer Surgical History History of History of cholecystectomy History of tubal ligation Social History (Updated 07/21/21 @ 17:[address] Barron Crareno MD) household members: spouse Smoking Status: Current every day smoker tobacco type: cigarettes alcohol intake: never substance use type: does not use ROS <TRAY Monet - Last Filed: 01/05/22 17:17> ROS ED ROS Narrative Constitutional: Negative for fever, chills, weight loss, weakness Eyes: Negative for vision loss, vision change, double vision ENT: Negative for any sore throat, ear pain, congestion Cardiovascular: Negative for any chest pain, tightness, palpitations, racing heartbeat Respiratory: Negative for any cough, sputum production, hemoptysis, shortness of breath, shortness of breath on exertion, orthopnea Gastrointestinal: Negative for any nausea, vomiting, diarrhea, constipation, blood in stool, blood in vomit. Positive for intermittent abdominal pain that has been going on for several weeks : Negative for any urinary frequency, incontinence, dysuria, retention, blood in urine Muscle skeletal: Negative for any muscle joint pain, stiffness, myalgias, arthralgias, neck pain, back pain Neurological: Negative for any headache, syncope, numbness or tingling., Positive for dizziness, feeling of spinning Skin: Negative for any rashes, lumps, itching, abrasions, lacerations Psychiatric: Negative for any depression, anxiety, stress, suicidal ideation, homicidal ideation Hematologic: Negative for any easy bruising, excessive bruising, easy bleeding Allergies: Negative for any eczema, hives, rash EXAM <TRAY Monet - Last Filed: 01/05/22 17:17> Physical Exam Narrative Exam Narrative: Vital signs reviewed. On initial exam, the patient was reading a book, she states as long as she keeps her head still, she does not have the spinning sensation. HEET: Head normocephalic atraumatic, TMs clear bilaterally. Posterior pharynx is clear, moist mucous membranes. Nares clear bilaterally. Neck: Supple with no lymphadenopathy or tenderness. No signs of meningismus, negative jolt sign. Cardiac: Regular rate and rhythm no murmurs gallops or rubs, equal peripheral pulses bilaterally. Respiratory: Lungs clear to auscultation bilaterally. No chest tenderness. Abdomen: Soft, nontender, nondistended. No abdominal bruit or pulsatile masses. No hepatosplenomegaly Extremities: No peripheral edema, no signs of gross trauma or deformity. Active full range of motion of all extremities. Neuro: Cranial nerves II through XII intact, no focal neurological deficits. I did perform a Miguel-Hallpike, patient did have horizontal nystagmus, this did dissipate after 10 seconds. Once patient is still, with her head forward, she has not experienced a spinning sensation Skin: Clean dry and intact with no rash, purpura, petechiae, vesicles or pustules. Backslash flank: No CVA tenderness, no midline spinal tenderness, no deformity. Psych: Normal mood and affect. No SI, HI or acute psychosis. Const Vital Signs: 01/05/22 15:10 01/05/22 16:11 01/05/22 16:47 Temperature 98.2 F Temperature Source Temporal Pulse Rate 73 75 Respiratory Rate 15 Respiratory Effort Normal Non-Labored Blood Pressure 148/84 H Blood Pressure Mean 105 Pulse Ox 98 98 Oxygen Delivery Method Room Air Room Air 01/05/22 17:00 Temperature Temperature Source Pulse Rate 68 Respiratory Rate Respiratory Effort Blood Pressure 153/95 H Blood Pressure Mean 114 Pulse Ox 99 Oxygen Delivery Method Room Air Positive well nourished and well developed General Appearance ED: well developed <Dr. Shola Ball DO - Last Filed: 01/05/22 17:33> Physical Exam Const Vital Signs: 01/05/22 15:10 01/05/22 16:11 01/05/22 16:47 Temperature 98.2 F Temperature Source Temporal Pulse Rate 73 75 Respiratory Rate 15 Respiratory Effort Normal Non-Labored Blood Pressure 148/84 H Blood Pressure Mean 105 Pulse Ox 98 98 Oxygen Delivery Method Room Air Room Air 01/05/22 17:00 Temperature Temperature Source Pulse Rate 68 Respiratory Rate Respiratory Effort Blood Pressure 153/95 H Blood Pressure Mean 114 Pulse Ox 99 Oxygen Delivery Method Room Air [facility] <TRAY Monet - Last Filed: 01/05/22 17:17> [facility] Narrative Medical decision making narrative: Patient appears well, patient appears nontoxic, patient presents the emergency department with vertiginous-like symptoms that started today. I did perform orthostatic vitals myself, they were negative. Patient physical examination is consistent with benign positional vertigo. I do not believe there is a central component, patient when sitting still had no symptoms. The patient did receive IV fluids, by mouth Valium secondary to an allergy to Benadryl. Patient did receive basic laboratory values, patient CBC showed a leukocytosis at 17 however looking at the past, this is baseline for the patient, patient's chemistries were unremarkable, patient's TSH was unremarkable. Patient's urinalysis showed no infection. Patient had significant improvement with by mouth Valium, IV fluids. I do not believe that CAT scan is necessary. Patient be diagnosed with benign peripheral positional vertigo and instructed to follow-up as needed. Patient is stable for discharge Lab Data Labs: Laboratory Results - last 24 hr 01/05/22 01/05/22 01/05/22 16:03 16:10 16:10 WBC 17.0 H RBC 5.32 Hgb 15.9 H Hct 47.3 H MCV 88.9 MCH 29.9 MCHC 33.6 RDW Std Deviation 42.5 RDW Coeff of Mariia 13.2 Plt Count 370 MPV 10.4 Immature Gran % (Auto) 1.400 H Neut % (Auto) 69.1 Lymph % (Auto) 20.3 Bowie % (Auto) 5.4 Eos % (Auto) 3.2 Baso % (Auto) 0.6 Absolute Neuts (auto) 11.7 H Absolute Lymphs (auto) 3.45 Nucleated RBC % 0 Sodium 139 Potassium 3.9 Chloride 106 Carbon Dioxide 29.0 Anion Gap 4 L BUN 7 Creatinine 0.92 Estim Creat Clear Calc 70.35 Est GFR (MDRD) Af Amer 83 Est GFR (MDRD) Non-Af 68 BUN/Creatinine Ratio 7.6 L Glucose 181 H Calcium 9.3 TSH 2.19 Urine Color Yellow Urine Clarity Clear Urine pH 8.0 Ur Specific [place] 1.010 Urine Protein Negative Urine Glucose (UA) Normal Urine Ketones Negative Urine Occult Blood Negative Urine Nitrite Negative Urine Bilirubin Negative Urine Urobilinogen Normal Ur Leukocyte Esterase 100 H Urine RBC 0 SEEN Urine WBC 0 SEEN Ur Squamous Epith Cells 0-5 SEEN Urine Bacteria 0 SEEN Urine Mucus 0 SEEN <Dr. Shola Ball, DO - Last Filed: 01/05/22 17:33> [facility] Narrative Medical decision making narrative: I have personally performed a face to face assessment of the patient and have reviewed the ARMINDA Note. I performed a substantive portion of the visit including all aspects of the following. My ornelas findings include: History is patient presents with dizziness and spinning sensation that is worse whenever she moves her head. Patient describes her dizziness as like I got off of a total oral ride. Patient states if she turns her head to the side this makes it worse. Patient states if she keeps her head still, this makes the dizziness better. Patient also admits to some lower abdominal pain with some nausea and vomiting. Patient denies any dysuria or hematuria. Exam is vital signs are stable. Patient is afebrile. Patient is in no acute distress. Presentation for mycosis. Neck is supple. Trachea is midline. There is no JVD. Heart was regular rate and rhythm. Lungs are clear and equal bilateral. Abdomen is soft. Bowel sounds are normal. There is mild suprapubic tenderness. There is no rebound or guarding noted. Cranial nerves II through XII are intact. There are no focal motor or sensory deficit. Medical Decison Making CBC shows a mild leukocytosis of 17.10. This is consistent with prior results. Basic metabolic profile was within normal limits. TSH was normal. Urinalysis does not show any evidence of urinary tract infection. Patient was given a dose of Valium here. Patient felt better after this. Patient was given a prescription for Valium. Patient instructed to follow-up with her primary care physician in 5 to 7 days. Patient understood and was agreeable with the plan. All questions were answered. Lab Data Attestation: I reviewed the patient's lab results. Labs: Laboratory Results - last 24 hr 01/05/22 01/05/22 01/05/22 16:03 16:10 16:10 WBC 17.0 H RBC 5.32 Hgb 15.9 H Hct 47.3 H MCV 88.9 MCH 29.9 MCHC 33.6 RDW Std Deviation 42.5 RDW Coeff of Mariia 13.2 Plt Count 370 MPV 10.4 Immature Gran % (Auto) 1.400 H Neut % (Auto) 69.1 Lymph % (Auto) 20.3 Bowie % (Auto) 5.4 Eos % (Auto) 3.2 Baso % (Auto) 0.6 Absolute Neuts (auto) 11.7 H Absolute Lymphs (auto) 3.45 Nucleated RBC % 0 Sodium 139 Potassium 3.9 Chloride 106 Carbon Dioxide 29.0 Anion Gap 4 L BUN 7 Creatinine 0.92 Estim Creat Clear Calc 70.35 Est GFR (MDRD) Af Amer 83 Est GFR (MDRD) Non-Af 68 BUN/Creatinine Ratio 7.6 L Glucose 181 H Calcium 9.3 TSH 2.19 Urine Color Yellow Urine Clarity Clear Urine pH 8.0 Ur Specific [place] 1.010 Urine Protein Negative Urine Glucose (UA) Normal Urine Ketones Negative Urine Occult Blood Negative Urine Nitrite Negative Urine Bilirubin Negative Urine Urobilinogen Normal Ur Leukocyte Esterase 100 H Urine RBC 0 SEEN Urine WBC 0 SEEN Ur Squamous Epith Cells 0-5 SEEN Urine Bacteria 0 SEEN Urine Mucus 0 SEEN Discharge Plan Triage Chief Complaint: Syncope ED Midlevel Provider: Carmelo Pradhan ED Provider: Shola Ball Dx/Rx/DC Orders Clinical Impression: Vertigo Instructions: ED Dizziness, Uncertain Cause Prescriptions: New diazepam [Valium] 5 mg tablet 5 mg PO BID PRN (Reason: vertigo) 3 Days Qty: 10 RF: 0 ondansetron 4 mg tablet,disintegrating 4 mg PO Q8H PRN (Reason: nausea and vomiting) Qty: 10 RF: 0 No Action prednisone 20 MG tablet 60 mg PO DAILY Qty: 15 RF: 0 Primary Care Provider: Cheli Olmedo Referrals: Cheli Olmedo PA [Primary Care Provider] - Activity Restrictions/Additional Instructions: Please follow-up as needed. Please return for any headache, worsening symptoms. Please be careful on Valium as this can cause sedating effects Print Language: Khmer Disposition Disposition: Home, Self Care
[2022-01-05 16:06] LABS: Bacteria 0 SEEN /hpf (None Seen); Mucous, Urine 0 SEEN /hpf (<or=2+); Red Blood Cells-Urine 0 SEEN /hpf (0-5); White Blood Cells 0 SEEN /hpf (0-5)
[2022-01-05 16:11] LABS: Color, Urine Yellow (Yellow); Glucose, Dipstick Normal (Normal); Ketone-Dipstick Negative (Negative); Leukocyte Esterase-Dipstick 100 /ul (Negative); Nitrite-Dipstick Negative (Negative); Occult Blood-Urine Negative /ul (Negative); Protein-Dipstick Negative (Negative); Urine Bilirubin Dipstick Negative (Negative); Urine Clarity Clear (Clear); Urine Urobilinogen Normal (Normal)
[2022-01-05] MEDS: diazePAM 5 MG Tablet PO (16:13)
[2022-01-05] MEDS: 0.9% Normal Saline 1,000 ML 1000 ML IV (16:13)
[2022-01-05 16:33] LABS: Absolute Lymphocyte Count 3.45 X10^3/uL (0.83-4.51); Absolute Neutrophil Count 11.7 X10^3/uL (2.0-7.7); Basophil% 0.6 % (0-1); Eosinophil# 0.55 X10^3/uL; Eosinophils% 3.2 % (0-5); Hematocrit 47.3 % (37-47); Hemoglobin 15.9 g/dL (12.0-15.0); Lymphocyte # 3.45 X10^3/ul (0.83-4.51); Lymphocyte % 20.3 % (19-41); Mean Corp Hgb Conc 33.6 g/dL (32-36); Mean Corpuscular Hgb 29.9 pg (27.0-32.0); Mean Corpuscular Volume 88.9 fL (81-99); Mean Platelet Vol. 10.4 fl (6.2-12.0); Monocyte# 0.92 X10^3/uL; Monocyte% 5.4 % (0-10); NRBC Flagged by Analyzer 0 % (0-5); Neutrophil # 11.72 X10^3/uL (2.7-7.7); Neutrophil % 69.1 % (47-70); Platelet Count 370 K/mm3 (150-450); RBC Distribution Width CV 13.2 % (11.6-14.6); RBC Distribution Width SD 42.5 fl (35.1-43.9); Red Blood Count 5.32 M/mm3 (4.2-5.4)
[2022-01-05 16:47] VITALS: PULSE 75; O2SAT 98
[2022-01-05 16:48] LABS: Anion Gap 4 (5-15); BUN 7 mg/dL (7-18); BUN/Creat Ratio 7.6 RATIO (10-20); Calcium,Total 9.3 mg/dL (8.5-10.1); Chloride 106 mmol/L (98-107); Creatinine, Serum 0.92 mg/dL (0.55-1.02); EST Glomerular Filtration Rate 68 mL/min (>60); Est Glom Filt Rate - Afr Amer 83 mL/min (>60); Estimated Creatinine Clearance 70.35 ml/min; Glucose 181 mg/dL (74-106); Potassium 3.9 mmol/L (3.5-5.1); Sodium Level 139 mmol/L (136-145); Thyroid Stim Hormone (TSH) 2.19 uIU/mL (0.358-3.74)
[2022-01-05 16:54] LABS: Squamous Epithelial Cells - UA 0-5 SEEN /hpf (5-10)
[2022-01-05 17:00] VITALS: BP 153/95; PULSE 68; O2SAT 99
== END 2022-01-05 17:49 | disposition home or self-care (01) ==
PROVIDERS: Nurse Practitioner; Emergency Provider Emergency Medicine; PCP Physician Assistant; Visit Provider Emergency Medicine
DX: R42 Dizziness and giddiness (principal); M06.9 Rheumatoid arthritis, unspecified; F31.9 Bipolar disorder, unspecified; E11.9 Type 2 diabetes mellitus without complications; I10 Essential (primary) hypertension; E78.5 Hyperlipidemia, unspecified; E03.9 Hypothyroidism, unspecified; F17.210 Nicotine dependence, cigarettes, uncomplicated
CPT/HCPCS: 80048; 81001; 84443; 85025; 96360; 99284; J7030; A4216

== ENCOUNTER 2022-04-11 14:30 | Outpatient (RCR) | payer MEDICAID, SELFPAY ==
--- NOTE | 2022-03-08 10:05 | HP.PTEVAL ---
Patient's Visit Information RYAN REYES is a 51 year old F referred to Physical Therapy by TRAY Lopez with a diagnosis of CHRONIC MIDELINE LOW BACK PAIN WITHOUT SCAITICA. Date of Evaluation: 03/08/22 Physical Therapist: Vincenzo Roy, PT, Cert MDT, OCS - Visit Plan Frequency: 2x /Week Duration: 4 Weeks Plan: PT INTERVETIONS DLS ,POSTURAL EX'S,FUNCTIONAL STRENGTHENING ,LE FLEXABLITY AND MODALTIES PRN - Subjective This 51 y/o female presents to physical therapy with lumbar pain. Patient has lumbar pain with radicular symptoms many years. Patient seen DR recommended PT . No pain pain ,just pain medication. Pain located symmetrical LS without leg pain. Patient has received PT with [facility] but has fear of water. Aggravating factors standing ,walking , 10 mins ,lifting ,bending . Alleviating factors ice. C/O paresthesia/tingling feet. Does c/o weakness in legs. Coughing/sneezing -. Bowel/bladder -. Pain affects sleeping. Patient pain affects QOL and function. Patient has seen chiropractor in past. Patient goals to decrease pain. SOCAIL: . VOCATION: [employer] [facility] [employer] [facility] [employer] [facility] - Objective POSTURE: mild forward posture. SYMMETRIES: align. GAIT: ambulates with reciprocal pattern. NEURO: denies paresthesia/tingling ,reflexes L3-4,,L4-5,L5-S1. LUMBAR ROM: flexion min loss, extension min loss ,side glides min loss. MMT: quads/hams 4/5,hip flexion 4-/5 - Special Tests L/S Slump test left side: Negative L/S Slump test right side: Negative L/S Left Straight Leg Raise: Negative L/S Right Straight Leg Raise: Negative Lumbar Standing: Flexion - Mechanical Response: No effect Lumbar Standing: Flexion - Symptoms During Testing: No effect Lumbar Standing: Flexion - Symptoms After Testing: No effect Lumbar Standing: Extension - Mechanical Response: No effect Lumbar Standing: Extension - Symptoms During Testing: Increases Lumbar Standing: Extension - Symptoms After Testing: No worse Lumbar Standing: Right Side Glides - Mechanical Response: No effect Lumbar Standing: Right Side [place] - Symptoms During Testing: No effect Lumbar Standing: Right Side [place] - Symptoms After Testing: No effect Lumbar Standing: Left Side [place] - Mechanical Response: No effect Lumbar Standing: Left Side [place] - Symptoms During Testing: No effect Lumbar Standing: Left Side [place] - Symptoms After Testing: No effect - Balance/Special Test Scores Oswestry Low Back Score: 35 - Goals Goal 1:: Patient to be I with HEP Goal Time Frame: 4-6 Weeks Goal 2:: Patient to improve posture/body mechanics for ADLS Goal Time Frame: 4-6 Weeks Goal 3:: .Patient to improve lumbar ROM for function of recovery to lift laundry Goal Time Frame: 4-6 Weeks Goal 4:: Patient to demonstrate 50% improvement with improve function and decrease pain Goal Time Frame: 4-6 Weeks Goal 5:: Patient to improve back oswestry score by 5 points to improve function Goal Time Frame: 4-6 Weeks - Rehabilitation Potential Physical Therapy Diagnosis: This patient lumbar pain with symptoms worse with position , motion testing with weakness thus impairs function and ADLS Rehabilitation Potential: Good - Anticipated Interventions Patient/Client Instruction: Educate patient on: Condition, Plan of Care For the Purpose of:: To decrease pain, To increase ROM, To improve muscle performance and motor function, To improve ability to perform ADL's, To increase tolerance to activity/condition/position, To improve gait and locomotor functions, To improve health of tissue, To decrease soft tissue restriction, To increase flexibility/ROM, To prevent re-injury Therapeutic Exercise to Include: Strength training, Endurance training, Body mechanics, Postural training, Flexibilty training, Dynamic Lumbar Stabilization For the Purpose of:: To decrease pain, To increase ROM, To improve muscle performance and motor function, To improve ability to perform ADL's, To increase tolerance to activity/condition/position, To improve ability of physical actions for home/community/work/leisure, To improve health of tissue, To decrease soft tissue restriction, To increase flexibility/ROM, To prevent re-injury Thank you for the opportunity to evaluate your patient. For Medicare and Medicare HMO plans, please review the plan of care and approve it. It will need to be FAXED BACK to us at [phone] for Medicare purposes. For Medicare only, by signing this I certify the plan of care. Please let me know if there are questions or concerns regarding this plan of care. Physician Signature: Date:
--- NOTE | 2022-04-11 14:47 | HP.PTDCSUM_ITS ---
It has been my pleasure to treat RYAN REYES referred by JANET Lopez, with the diagnosis of CHRONIC MIDELINE LOW BACK PAIN WITHOUT SCAITICA for a total of 8 visit(s). Discharge Date: 04/11/22 Please see the following information for a summary of their discharge status. Subjective: Doing alot better ready to be d/c. Able to do housework tasks Back Pain Intensity (Out of 10): 2 % Improvement: 7 Objective/Function: POSTURE: WFL. GAIT: reciprocal pattern. MMT: qu ads/hams/hip 4/5,ankle 4/5. LUMBAR ROM: FLEXION WFL ,EXTENSION MIN/MOD LOSS Goal 1:: Patient to be I with HEP Goal Progress: Goal Met Goal 2:: Patient to improve posture/body mechanics for ADLS Goal Progress: Goal Met Goal 3:: .Patient to improve lumbar ROM for function of recovery to lift laundry Goal Progress: Goal Met Goal 4:: Patient to demonstrate 50% improvement with improve function and decrease pain Goal Progress: Goal Met Goal 5:: Patient to improve back oswestry score by 5 points to improve function Goal Progress: Goal Met Plan: D/C Discharge Comments: HEP If there are questions or concerns regarding this patient's physical therapy, please feel free to call me at [phone]. Thank you for the referral of this patient. Sincerely, Vincenzo Roy, PT, Cert MDT, OCS Balance/Gait/Functional tests - Balance/Special Test Scores Oswestry Low Back Score: 9
== END 2022-04-11 19:00 | disposition home or self-care (01) ==
LOC: PT 14:30
PROVIDERS: PCP Physician Assistant; Referring Provider Registered Nurse; Visit Provider Registered Nurse
DX: M54.50 Low back pain, unspecified (principal); G89.29 Other chronic pain
CPT/HCPCS: 97110; 97162; 97530

== ENCOUNTER 2023-08-01 09:45 | Emergency (ER) | payer MEDICAID, SELFPAY ==
[2023-08-01 09:47] VITALS: BP 151/90; PULSE 78; RESP 14; TEMP 36.6; O2SAT 100; BMI 30.7
--- NOTE | 2023-08-01 09:59 | EKG12_ITS ---
Test Reason : CHEST TIGHTNES Blood Pressure : / mmHG Vent. Rate : 070 BPM Atrial Rate : 070 BPM P-R Int : 182 ms QRS Dur : 082 ms QT Int : 400 ms P-R-T Axes : 038 -82 020 degrees QTc Int : 432 ms Normal sinus rhythm Left axis deviation Pulmonary disease pattern Septal infarct , age undetermined Abnormal ECG Confirmed by MICHAEL ALVARADO, RENEA ([id number]), assistant production editor CHRISTINE TREVIZO ([id number]) on 08/07/2023 11:58:00 AM Referred By: Confirmed By:RENEA RODRIGUEZ MD
--- NOTE | 2023-08-01 09:59 | RAD_ITS ---
STUDY: X-RAY CHEST REASON FOR EXAM: Female, 53 years old. Cough TECHNIQUE: Single AP portable view of the chest. COMPARISON: Comparison is made with prior study dated February 28, 2020. FINDINGS: The lungs are clear and expanded. There is no demonstrated pleural abnormality. Normal size heart. Normal mediastinum and benjamin. Normal visualized pulmonary arteries. Normal visualized aortic arch and descending thoracic aorta. Normal visualized thoracic spine. Normal visualized ribs, clavicles, and shoulders. There is no demonstrated abnormality of the visualized soft tissue structures of the upper abdomen. RAD/Chest 1 View (Portable) IMPRESSION: Normal x-ray examination of the chest. Electronically Signed: João Cervantes MD at 10:56 RUST ,
--- NOTE | 2023-08-01 10:00 | EDS_ITS ---
HPI History of Present Illness Chief Complaint: Chest Pain Informant: patient Narrative Narrative: Cough congestion myalgias and diarrhea for the past week. No recent antibiotics. No fevers or chills. Changes in taste. No nausea or vomiting. Reports chest heaviness. No cardiac history. COVID 2 years ago with nerve pain on her right leg. Diabetic. Had a old COVID test that she tested 5 days which was negative. Was tolerating oral fluids. Using [id number] cold medications however none taken today. Denies any heart failure history. Reports did get the influenza vaccine this year. PFSH PFS Medical History Atypical chest pain Bipolar disorder Chronic stable asthma Hypertension Hypothyroidism Multiple thyroid nodules Rheumatoid arthritis Thyroid nodule Home Medications prednisone 20 mg tablet 60 mg (3 x 20 mg) PO DAILY #15 TABLETS 07/21/21 [Rx Last Taken Unknown] diazepam 5 mg tablet (Valium) 5 mg PO BID PRN vertigo 3 days #10 tabs 01/05/22 [Rx Last Taken Unknown] ondansetron 4 mg disintegrating tablet 4 mg PO Q8H PRN nausea and vomiting #10 tabs 01/05/22 [Rx Last Taken Unknown] albuterol sulfate 90 mcg/actuation aerosol inhaler (Ventolin HFA) 1 - 2 puff inhalation Q4H PRN PRN Wheezing ##1 08/01/23 [Rx Last Taken Unknown] prednisone 20 mg tablet 60 mg (3 x 20 mg) PO DAILY #15 TABLETS 08/01/23 [Rx Last Taken Unknown] Allergy/AdvReac Type Severity Reaction Status Date / Time ciprofloxacin [From Cipro] Allergy Hives Verified 01/05/22 15:09 ciprofloxacin HCl Allergy Hives Verified 01/05/22 15:09 [From Cipro] Penicillins Allergy Hives Verified 01/05/22 15:09 Sulfa (Sulfonamide Allergy Hives Verified 01/05/22 15:09 Antibiotics) diphenhydramine HCl AdvReac HYPERACTIVI Verified 01/05/22 15:09 [From Benadryl] TY Family History Sister Arthritis Father Heart disease Mother Cancer Grandmother Cancer Surgical History History of History of cholecystectomy History of tubal ligation Social History (Updated 07/21/21 @ 17:[address] Barron Carreno MD) household members: spouse Smoking Status: Current every day smoker tobacco type: cigarettes alcohol intake: never substance use type: does not use ROS ROS ED Constitutional Constitutional ED: Denies chills, fever(s) or sweats Eyes Eyes: Denies change in vision ENT ENT ED: Denies dysphagia or sore throat Cardiovascular Cardiovascular: Reports chest pain; Denies leg edema, palpitations or racing heartbeat Respiratory/Chest Respiratory/Chest: Reports cough; Denies dyspnea or dyspnea on exertion Gastrointestinal Gastrointestinal: Reports diarrhea; Denies abdominal pain, nausea or vomiting Genitourinary Genitourinary ED: Denies dysuria, hematuria or urinary frequency Musculoskeletal Musculoskeletal: Denies back pain, extremity pain or neck pain Integumentary Denies rash or wounds Neurologic Neurologic: Reports headache(s); Denies paresthesias or weakness EXAM Physical Exam Const Vital Signs: 08/01/23 09:47 08/01/23 14:01 Temperature 98 F Temperature Source Temporal Pulse Rate 78 57 L Respiratory Rate 14 18 Blood Pressure 151/90 H 147/70 H Blood Pressure Mean 110 95 Pulse Ox 100 98 Oxygen Delivery Method Room Air Positive well nourished and well developed General Appearance ED: well developed and NAD HEENT Reports dry mucous membranes normocephalic and atraumatic Mouth ED: Yes dry mucous membranes Mouth: dry mucous membranes Eyes PERRL, EOMs intact bilaterally and conjunctivae normal General Eye ED: Yes normal appearance of both eyes Neck no lymphadenopathy and supple Neck Narrative: No meningismus General: Negative for tenderness Chest Wall inspection of chest normal and palpation of chest normal Chest: Negative for tenderness Resp normal respiratory effort and normal air movement Effort and Inspection: symmetric chest movement; Negative for respiratory distress Cardio regular rate, regular rhythm and no murmurs Peripheral Pulses: pulses 2+ throughout GI normal to inspection, nondistended, normoactive bowel sounds and non-tender Palpation: Negative for guarding or rebound tenderness present Back/Spine no CVA tenderness and no thoracic nor lumbar tenderness Extremity normal to inspection General Extremety ED: Negative for edema or tenderness General Extremity: Negative for edema Neuro oriented x3, CN's II-XII intact bilaterally and no sensory deficits noted Sensorium / Orientation: awake and alert Skin no rashes or lesions noted and no wounds MDM MDM MDM Narrative Medical decision making narrative: Interventions / MDM: Differential diagnosis: Bronchitis, asthma, viral syndrome Diagnosis considered but do not suspect: Pneumonia however negative chest x-ray. ACS however negative cardiac enzymes and no ischemic changes on EKG. My EKG interpretation: Sinus rate of 70, no ST changes, nonspecific T wave inversion in leads III. Imaging independently reviewed and interpreted by myself: 2 view chest x-ray: No acute process. External documents reviewed: N/A Test considered but not ordered:N/A ED course: 1 week productive cough myalgias and headaches. Reports chest discomfort. EKG normal. Cardiac work-up initiated. Chest x-ray. Labs with COVID and influenza sent. Chest ray negative Labs stable white count of 12.3. Normal electrolytes. Troponin - x2. IV fluids were given. Vitals remained stable. COVID and flu negative. Discussed viral syndrome with bronchitis. History of asthma reports wheezing at home no active wheezing. Pulse ox stable. Prescription for steroids and inhaler to use for symptom control. Discussed adjunct therapies continue oral fluids for hydration. Outpatient follow-up with return precautions. All questions were answered. Re-evaluation: stable Disposition discussed with patient/family/significant other: Patient Case discussed with consulting clinician: N/A This note was generated with [employer] dictation software. It may contain incorrect words, spelling, and punctuation that were not noted in checking the note before signing. Lab Data Attestation: I reviewed the patient's lab results. Labs: Laboratory Results - last 24 hr 08/01/23 08/01/23 10:10 12:42 WBC 12.3 H RBC 5.42 H Hgb 15.4 H Hct 46.7 MCV 86.2 MCH 28.4 MCHC 33.0 RDW Std Deviation 39.8 RDW Coeff of Mariia 12.6 Plt Count 273 MPV 10.8 Immature Gran % (Auto) 0.400 Neut % (Auto) 61.2 Lymph % (Auto) 28.2 [place] % (Auto) 6.5 Eos % (Auto) 3.4 Baso % (Auto) 0.3 Absolute Neuts (auto) 7.5 Absolute Lymphs (auto) 3.48 Nucleated RBC % 0 Sodium 141 Potassium 3.7 Chloride 111 H Carbon Dioxide 24.0 Anion Gap 6 BUN 9 Creatinine 1.08 H Estim Creat Clear Calc 58.58 Est GFR (MDRD) Af Amer 68 Est GFR (MDRD) Non-Af 56 L BUN/Creatinine Ratio 8.3 L Glucose 165 H Calcium 8.8 Troponin I High Sens 5 4 Radiography Diagnostic Testing: Clinical Impression(s) from Imaging Studies Chest X-Ray 08/01/23 09:59 IMPRESSION: Normal x-ray examination of the chest. Electronically Signed: João Cervantes MD at 10:56 EST , Discharge Plan Triage Chief Complaint: Chest Pain ED Provider: Juan Antonio Jalloh Dx/Rx/DC Orders Clinical Impression: History of asthma, Viral syndrome, Bronchitis Instructions: ED Asthma, Acute (Adult), ED Bronchitis, No Antibiotic (Adult), ED Viral Syndrome (Adult) Prescriptions: New prednisone 20 mg tablet 60 mg PO DAILY Qty: 15 0RF albuterol sulfate [Ventolin HFA] 90 mcg/actuation HFA aerosol inhaler 1 - 2 puff inhalation Q4H PRN PRN (Reason: Wheezing) Qty: 1 0RF No Action prednisone 20 MG tablet 60 mg PO DAILY Qty: 15 0RF diazepam [Valium] 5 mg tablet 5 mg PO BID PRN (Reason: vertigo) 3 Days Qty: 10 0RF ondansetron 4 mg tablet,disintegrating 4 mg PO Q8H PRN (Reason: nausea and vomiting) Qty: 10 0RF Stand Alone Forms: Work / School Excuse Primary Care Provider: Cheli Olmedo Referrals: Cheli Olmedo PA [Primary Care Provider] - 1 Week if not improving Activity Restrictions/Additional Instructions: COVID and influenza negative. chest x-ray negative. Labs are all stable. Steroids inhaler as prescribed. Continue oral fluids for hydration. Follow-up with your doctor. Return if any worsening symptoms. Disposition Disposition: Home, Self Care Discharge Date/Time: 08/01/23 14:16
[2023-08-01] MEDS: 0.9% Normal Saline (1000mL) 1,000 ML 1000 ML IV (10:11)
[2023-08-01] MEDS: Acetaminophen 500 MG Tablet 1000 MG PO (10:11)
[2023-08-01 10:21] LABS: Absolute Lymphocyte Count 3.48 X10^3/uL (0.83-4.51); Absolute Neutrophil Count 7.5 X10^3/uL (2.0-7.7); Basophil# 0.04 X10^3/uL; Basophil% 0.3 % (0-1); Eosinophil# 0.42 X10^3/uL; Eosinophils% 3.4 % (0-5); Hematocrit 46.7 % (37-47); Hemoglobin 15.4 g/dL (12.0-15.0); Lymphocyte # 3.48 X10^3/ul (0.83-4.51); Lymphocyte % 28.2 % (19-41); Mean Corpuscular Hgb 28.4 pg (27.0-32.0); Mean Corpuscular Volume 86.2 fL (81-99); Mean Platelet Vol. 10.8 fl (6.2-12.0); Monocyte% 6.5 % (0-10); NRBC Flagged by Analyzer 0 % (0-5); Neutrophil # 7.53 X10^3/uL (2.7-7.7); Neutrophil % 61.2 % (47-70); Platelet Count 273 K/mm3 (150-450); RBC Distribution Width CV 12.6 % (11.6-14.6); RBC Distribution Width SD 39.8 fl (35.1-43.9); Red Blood Count 5.42 M/mm3 (4.2-5.4); White Blood Count 12.3 K/mm3 (4.4-11.0)
[2023-08-01 10:40] LABS: Anion Gap 6 (5-15); BUN 9 mg/dL (7-18); BUN/Creat Ratio 8.3 RATIO (10-20); Calcium,Total 8.8 mg/dL (8.5-10.1); Chloride 111 mmol/L (98-107); Creatinine, Serum 1.08 mg/dL (0.55-1.02); EST Glomerular Filtration Rate 56 mL/min (>60); Est Glom Filt Rate - Afr Amer 68 mL/min (>60); Estimated Creatinine Clearance 58.58 ml/min; Glucose 165 mg/dL (74-106); Potassium 3.7 mmol/L (3.5-5.1); Sodium Level 141 mmol/L (136-145); Troponin-I HS (w/2H Reflex) 5 pg/mL (3.0-54.0)
[2023-08-01 12:17] LABS: Reflex Troponin-HS? (from REC) Y
[2023-08-01 13:10] LABS: Troponin-I HS 4 pg/mL (3.0-54.0)
[2023-08-01 14:01] VITALS: BP 147/70; PULSE 57; RESP 18; O2SAT 98
== END 2023-08-01 14:16 | disposition home or self-care (01) ==
PROVIDERS: Emergency Provider Emergency Medicine; PCP Physician Assistant; Visit Provider Emergency Medicine
DX: B34.9 Viral infection, unspecified (principal); E11.9 Type 2 diabetes mellitus without complications; R19.7 Diarrhea, unspecified; R51.9 Headache, unspecified; I10 Essential (primary) hypertension; Z79.52 Long term (current) use of systemic steroids; F17.210 Nicotine dependence, cigarettes, uncomplicated; J45.909 Unspecified asthma, uncomplicated
CPT/HCPCS: 71045; 80048; 84484; 85025; 87428; 93005; 96360; 96361; 99284; J7030; A4216

== ENCOUNTER 2023-09-06 09:18 | Emergency (ER) | payer MEDICAID, SELFPAY ==
[2023-09-06 09:19] VITALS: BP 128/79; PULSE 74; RESP 16; TEMP 36.7; O2SAT 99
--- NOTE | 2023-09-06 09:47 | ED.VIS.BACK ---
HPI History of Present Illness Chief Complaint: Back Detail of Chief Complaint: Acute on chronic right sciatica Informant: patient and family Onset/Context/Timing Onset: Days Context: Gradual Onset Timing: Continuous Quality: Sharp Location: Lumbar, Buttock and Right Leg Current Severity: Mild Maximum Severity: Mild Worsened by: improves with Movement Relieved by: Remaining Still and Medications Associated Symptoms Associated Symptoms: Radiation to Right Leg; Negative for Numbness, Unable to Ambulate, Unable to Transfer, Urinary Incontinence, Constipation or Fecal Incontinence Narrative Narrative: 53-year-old female with 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 She sees pain management the [facility]. She has been off prednisone for several weeks. Says the pain is recurred. Denies any fall or trauma. No weakness. No bowel or bladder incontinence or retention. Prior similar symptoms: Yes Recent Illness/Hospitalization: No PFSH [facility] Medical History Atypical chest pain Bipolar disorder Chronic stable asthma Hypertension Hypothyroidism Multiple thyroid nodules Rheumatoid arthritis Thyroid nodule Home Medications prednisone 20 mg tablet 60 mg (3 x 20 mg) PO DAILY #15 TABLETS 07/21/21 [Rx Last Taken Unknown] diazepam 5 mg tablet (Valium) 5 mg PO BID PRN vertigo 3 days #10 tabs 01/05/22 [Rx Last Taken Unknown] ondansetron 4 mg disintegrating tablet 4 mg PO Q8H PRN nausea and vomiting #10 tabs 01/05/22 [Rx Last Taken Unknown] albuterol sulfate 90 mcg/actuation aerosol inhaler (Ventolin HFA) 1 - 2 puff inhalation Q4H PRN PRN Wheezing ##1 08/01/23 [Rx Last Taken Unknown] prednisone 20 mg tablet 60 mg (3 x 20 mg) PO DAILY #15 TABLETS 08/01/23 [Rx Last Taken Unknown] prednisone 20 mg tablet 40 mg (2 x 20 mg) PO DAILY 7 days #14 tabs 09/06/23 [Rx Last Taken Unknown] Allergy/AdvReac Type Severity Reaction Status Date / Time ciprofloxacin [From Cipro] Allergy Hives Verified 01/05/22 15:09 ciprofloxacin HCl Allergy Hives Verified 01/05/22 15:09 [From Cipro] Penicillins Allergy Hives Verified 01/05/22 15:09 Sulfa (Sulfonamide Allergy Hives Verified 01/05/22 15:09 Antibiotics) diphenhydramine HCl AdvReac HYPERACTIVI Verified 01/05/22 15:09 [From Benadryl] TY Family History Sister Arthritis Father Heart disease Mother Cancer Grandmother Cancer Surgical History History of History of cholecystectomy History of tubal ligation Social History household members: spouse Smoking Status: Current every day smoker tobacco type: cigarettes alcohol intake: never substance use type: does not use ROS ROS ED ROS Narrative Back pain. No recent illness. Review of Systems ROS Unobtainable: Denies due to encephalopathy Constitutional Constitutional ED: Denies chills or fever(s) Eyes Eyes: Denies blurry vision ENT ENT ED: Denies ear pain Cardiovascular Cardiovascular: Denies chest pain Respiratory/Chest Respiratory/Chest: Denies dyspnea Gastrointestinal Gastrointestinal: Denies abdominal pain Genitourinary Genitourinary ED: Denies dysuria or hematuria Musculoskeletal Musculoskeletal: Reports back pain; Denies arthralgias, myalgias or neck pain Integumentary Denies abscess or Abrasions Neurologic Neurologic: Denies headache(s) Psychiatric Psychiatric: Denies anxiety Endocrine Endocrinology: Denies cold intolerance Hematologic/Lymphatic Hematologic/Lymphatic: Denies easy bleeding Allergic/Immunologic Allergic/Immunologic ED: Denies mouth swelling or tongue swelling EXAM Physical Exam Narrative Exam Narrative: 53-year-old female no acute distress. Vital signs stable afebrile. H EENT exam unremarkable. Neck nontender. Lungs clear to auscultation bilaterally. Heart regular rhythm no murmur. Chest wall nontender. Abdomen soft nontender. Moving all 4 extremities. Neurovascular intact. Back and lumbar spine nontender. Right SI joint tenderness. She has normal strength and sensation in both lower extremities. No cauda equina or saddle anesthesia. No foot drop. Const Vital Signs: 09/06/23 09:19 Temperature 98.1 F Temperature Source Temporal Pulse Rate 74 Respiratory Rate 16 Blood Pressure 128/79 H Blood Pressure Mean 95 Pulse Ox 99 Oxygen Delivery Method Room Air Positive well nourished and well developed; Negative for cachectic, contractures or unkempt General Appearance ED: well developed and NAD; Negative for unkempt, cachectic, contractures or pallor Nutritional Appearance: Negative for cachectic HEENT Reports moist mucous membranes; Denies TM's clear Negative for trauma or tenderness Tympanic Membrane ED: Negative for TM's clear Eyes PERRL and EOMs intact bilaterally General Eye ED: Negative for pale conjunctiva, scleral icterus or other Neck no lymphadenopathy, supple and no JVD General: Negative for tenderness Thyroid: Negative for other Chest Wall Chest: Negative for other Resp normal respiratory effort and clear to auscultation bilaterally Effort and Inspection: Negative for pain with movement Auscultation: Negative for rales, rhonchi or wheezes Cardio regular rate, regular rhythm, S1 normal heart sound, S2 normal heart sound and no murmurs Palpation: Negative for palpable S3 Rate: Negative for bradycardia or tachycardic Rhythm: Negative for abnormal rhythm Bruits: Negative for other GI normal to inspection, nondistended, normoactive bowel sounds, soft to palpation, non-tender, non-distended and no masses Inspection: Negative for abdominal distention Auscultation: Negative for hyperactive bowel sounds Palpation: Negative for tender or guarding Bladder / Kidney Exam: No other Back/Spine normal to inspection and no thoracic nor lumbar tenderness Back/Spine Narrative: Right SI joint tenderness. General Back: Negative for CVA tenderness Cervical Spine: Negative for cervical spine tenderness Thoracic Spine / Upper Back: Negative for paraspinal muscle tenderness Lumbar Spine / Lower Back: Negative for ROM limited Extremity normal to inspection and no clubbing, cyanosis or edema General Extremety ED: Negative for edema or tenderness General Extremity: Negative for edema Neuro oriented x3 and no sensory deficits noted Sensorium / Orientation: alert; Negative for confused, lethargic or stuporous Sensory Exam: No other Motor Exam: strength 5/5 throughout Psych mental status grossly normal Appearance: Negative for unkempt Attitude: No agitated Mood & Affect: Negative for depressed or tearful Skin no rashes or lesions noted and no wounds General Skin Exam: Negative for jaundice or pallor Lesions: No lesion noted Rashes: No rashes noted Trauma: Negative for abrasion or puncture Wounds: Negative for wounds noted MDM MDM MDM Narrative Medical decision making narrative: 53-year-old female recurrent right sciatica. She sees pain management. She be given 1 Percocet here for pain. Otherwise pain meds through her pain management doctor. When she gets these flare ups they placed her on prednisone. She will be given a dose of 40 mg of prednisone here. Placed on a prescription of 40 mg a day for 1 week. Follow-up with her pain management physicians this week. History & Record Review Discussion w/independent historian: Patient and Family Additional record(s) reviewed:: Prior inpatient record, Prior outpatient record, Prior ED visit and Prior labs Discharge Plan Triage Chief Complaint: Back ED Provider: Jeremiah Henderson Dx/Rx/DC Orders Clinical Impression: History of bipolar disorder, Chronic pain, Acute right-sided back pain with sciatica, History of rheumatoid arthritis Instructions: ED Sciatica Prescriptions: New prednisone 20 mg tablet 40 mg PO DAILY 7 Days Qty: 14 0RF No Action prednisone 20 MG tablet 60 mg PO DAILY Qty: 15 0RF diazepam [Valium] 5 mg tablet 5 mg PO BID PRN (Reason: vertigo) 3 Days Qty: 10 0RF ondansetron 4 mg tablet,disintegrating 4 mg PO Q8H PRN (Reason: nausea and vomiting) Qty: 10 0RF prednisone 20 mg tablet 60 mg PO DAILY Qty: 15 0RF albuterol sulfate [Ventolin HFA] 90 mcg/actuation HFA aerosol inhaler 1 - 2 puff inhalation Q4H PRN PRN (Reason: Wheezing) Qty: 1 0RF Primary Care Provider: Cheli Olmedo Referrals: Cheli Olmedo PA [Primary Care Provider] - Activity Restrictions/Additional Instructions: Prednisone 40 mg a day for 1 week. Call and follow-up with your pain management physicians at the [facility]. Disposition Disposition: Home, Self Care
[2023-09-06] MEDS: predniSONE 20 MG Tablet 40 MG PO (09:52)
[2023-09-06] MEDS: Oxycodone/Apap 5/325 Tablet PO (09:52)
[2023-09-06 10:08] VITALS: BP 138/78; PULSE 64; RESP 14; TEMP 36.4; O2SAT 99; BMI 27.9
== END 2023-09-06 10:10 | disposition home or self-care (01) ==
LOC: ED 10:09
PROVIDERS: Emergency Provider Emergency Medicine; PCP Physician Assistant; Visit Provider Emergency Medicine
DX: M54.31 Sciatica, right side (principal); M06.9 Rheumatoid arthritis, unspecified; F31.9 Bipolar disorder, unspecified; I10 Essential (primary) hypertension; F17.210 Nicotine dependence, cigarettes, uncomplicated
CPT/HCPCS: 99283

== ENCOUNTER 2024-02-20 10:53 | Outpatient (RCR) | payer MEDICAID, SELFPAY ==
--- NOTE | 2024-02-20 11:37 | HP.PTEVAL ---
Patient's Visit Information Visit Information Visit Information: RYAN REYES is a 53 year old F referred to Physical Therapy by TRAY Broussard with a diagnosis of NECK PAIN. Date of Evaluation: 02/20/24 Physical Therapist: Vincenzo Roy, PT, Cert MDT, OCS Visit Plan Frequency: 2x /Week Duration: 4 Weeks Plan: PT INTERVENTIONS MANUAL THERAPY STM /CERVICAL TRACTION ,CERVICAL ROM ,POSTURAL EX'S ,ACTIVITY MODIFICATION AND MODALTIES PRN Subjective Subjective: This 55 y/o female presents to physical therapy with neck pain for [address] and recommended PT. Patient had x-rays showed DDD. Pain located cervical spine -UT. Described as sharp pain. Denies paresthesia/tingling -. Patient has MAE frontal aspect. Aggravating factors stress ,flexion and lifting OH. Alleviating factors standing . Patient sleeping good. Patient denies paresthesia/tingling -. Patient denies nausea/tinnitus/dizziness. Patient sleeping good . No h/o trauma. Patient pain affects QOL and function. Patient goals to decrease paon. SOCIAL: VOCATION: unemployed Pain Bilateral Neck: Pain Intensity (Out of 10): 6 Pain Intensity Range: 10 Objective Objective: POSTURE: rounded shoulders head forward PALAPTION: tender UT/levator/occiput NEURO: denies paresthesia/tingling ,reflexes C5-6-7 1/ AROM: BUE WFL ~ 120 degrees shoulder flexion MMT: grossly 4-/5 except shoulders 3+/5 CERVICAL ROM: flexion min loss ,extension min/mod loss min ,rotation/lateral flexion min loss ,retraction WFL Special Tests C/S Radiculapathy - Left Upper limb tension test: Negative C/S Radiculapathy - Right Upper limb tension test: Negative C/S Radiculapathy - Left Spurlings: Negative C/S Radiculapathy - Right Spurlings: Negative C/S Radiculapathy - Left Cervical distraction: Negative C/S Radiculapathy - Right Cervical distraction: Negative C/S Radiculapathy - Left Relief test: Negative C/S Radiculapathy - Right Relief test: Negative C/S Radiculapathy - Valsalva: Negative Sharp Lius: Negative Vertebral Artery Test: Negative Alar Ligament Test: Negative Cervical Sitting: Protrusion - Mechanical Response: No effect Cervical Sitting: Protrusion - Symptoms During Testing: No effect Cervical Sitting: Protrusion - Symptoms After Testing: No effect Cervical Sitting: Retraction - Mechanical Response: No effect Cervical Sitting: Retraction - Symptoms During Testing: Increases Cervical Sitting: Retraction - Symptoms After Testing: No worse Cervical Sitting: Retraction-Extension - Mechanical Response: No effect Cerv Sitting: Retraction-Extension - Symptoms During Testing: Increases Cerv Sitting: Retraction-Extension - Symptoms After Testing: No worse Cervical Sitting: Sidebend Right - Mechanical Response: No effect Cervical Sitting: Sidebend Right - Symptoms During Testing: No effect Cervical Sitting: Sidebend Right - Symptoms After Testing: No effect Cervical Sitting: Sidebend Left - Mechanical Response: No effect Cervical Sitting: Sidebend Left - Symptoms During Testing: No effect Cervical Sitting: Sidebend Left - Symptoms After Testing: No effect Cervical Sitting: Rotation Right - Mechanical Response: No effect Cervical Sitting: Rotation Right - Symptoms During Testing: No effect Cervical Sitting: Rotation Right - Symptoms After Testing: No effect Cervical Sitting: Rotation Left - Mechanical Response: No effect Cervical Sitting: Rotation Left - Symptoms During Testing: No effect Cervical Sitting: Flexion - Mechanical Response: No effect Cervical Sitting: Flexion - Symptoms During Testing: Increases Cervical Sitting: Flexion - Symptoms After Testing: No worse Balance/Special Test Scores Oswestry Neck Score: 20 Goals Goal 1:: Patient to be I with HEP for cervical Goal Time Frame: 4-6 Weeks Goal 2:: Patient to demonstrate 40 % improvement with decrease pain and improved function Goal Time Frame: 4-6 Weeks Goal 3:: Patient to improve cervical ROM for function of recovery to turn neck for function. Goal Time Frame: 4-6 Weeks Goal 4:: Patient to improve neck oswestry by 5 points to decrease pain/QOL. Goal Time Frame: 4-6 Weeks Goal 5:: Patient be able to perform ADLS and housework tasks with min limitations Rehabilitation Potential Physical Therapy Diagnosis: This patient has cervical pain with possible disc derangement with pain worse with motion testing and position flexion sitting thus benefit from skilled PT Rehabilitation Potential: Good Anticipated Interventions Patient/Client Instruction: Educate patient on: Condition and Plan of Care For the Purpose of:: To decrease pain, To increase ROM, To improve muscle performance and motor function, To improve ability to perform ADL's, To increase tolerance to activity/condition/position, To improve ability of physical actions for home/community/work/leisure, To improve health of tissue, To decrease soft tissue restriction, To increase flexibility/ROM, To reduce risk of recurrence and To improve tolerance to ADL's Therapeutic Exercise to Include: Strength training, Postural training, Flexibilty training and Jacky Exercises For the Purpose of:: To decrease pain, To increase ROM, To improve muscle performance and motor function, To improve ability to perform ADL's, To increase tolerance to activity/condition/position, To improve ability of physical actions for home/community/work/leisure, To improve health of tissue, To decrease soft tissue restriction, To increase flexibility/ROM, To prevent re-injury and To improve tolerance to ADL's Manual Therapy Techniques to Include: Mobilization and Soft tissue mobilization Comment: CERVICAL TARCTION For the Purpose of:: To decrease pain, To increase ROM, To improve muscle performance and motor function, To improve health of tissue, To decrease soft tissue restriction and To increase flexibility/ROM TENS: Yes IF ES: Yes Cryotherapy (ice pack, ice massage): Yes Thermo therapy (hot pack): Yes Ultrasound (thermal/non thermal): Yes For the Purpose of:: To decrease pain, To increase ROM, To improve nutrient delivery to tissue, To increase oxygenation perfusion, To improve health of tissue, To decrease soft tissue restriction and To foster healthy habits Text: Thank you for the opportunity to evaluate your patient. For Medicare and Medicare HMO plans, please review the plan of care and approve it. It will need to be FAXED BACK to us at [phone] for Medicare purposes. For Medicare only, by signing this I certify the plan of care. Please let me know if there are questions or concerns regarding this plan of care. Physician Signature: Date:
--- NOTE | 2024-04-17 13:19 | HP.PT.NRP ---
Patient Information Patient Information: RYAN REYES was seen in my office for initial evaluation on 02/20/24. The following Plan of Care was established for this patient: POC Established Initial Frequency: 2x /Week Initial Duration: 4 Weeks Anticipated Interventions Patient/Client Instruction: Educate patient on: Condition and Plan of Care For the Purpose of:: To decrease pain, To increase ROM, To improve muscle performance and motor function, To improve ability to perform ADL's, To increase tolerance to activity/condition/position, To improve ability of physical actions for home/community/work/leisure, To improve health of tissue, To decrease soft tissue restriction, To increase flexibility/ROM, To reduce risk of recurrence and To improve tolerance to ADL's Therapeutic Exercise to Include: Strength training, Postural training, Flexibilty training and Jacky Exercises For the Purpose of:: To decrease pain, To increase ROM, To improve muscle performance and motor function, To improve ability to perform ADL's, To increase tolerance to activity/condition/position, To improve ability of physical actions for home/community/work/leisure, To improve health of tissue, To decrease soft tissue restriction, To increase flexibility/ROM, To prevent re-injury and To improve tolerance to ADL's Manual Therapy Techniques to Include: Mobilization and Soft tissue mobilization Comment: CERVICAL TARCTION For the Purpose of:: To decrease pain, To increase ROM, To improve muscle performance and motor function, To improve health of tissue, To decrease soft tissue restriction and To increase flexibility/ROM TENS: Yes IF ES: Yes Cryotherapy (ice pack, ice massage): Yes Thermo therapy (hot pack): Yes Ultrasound (thermal/non thermal): Yes For the Purpose of:: To decrease pain, To increase ROM, To improve nutrient delivery to tissue, To increase oxygenation perfusion, To improve health of tissue, To decrease soft tissue restriction and To foster healthy habits Last Seen Last Seen: This patient was last seen in our office . Pertinent comments regarding their Physical therapy will appear below: Patient seen for PT for neck pain for Intial evaluation ,thus d/c At this point I will be discontinuing this patient from physical therapy. I would be happy to see this patient again in the future if found appropriate by the physician. Thank you! Vincenzo Roy, PT, Cert MDT, OCS Balance/Gait/Functional tests Balance/Special Test Scores Oswestry Neck Score: 20
== END 2024-02-20 19:00 | disposition home or self-care (01) ==
LOC: PT 10:53
PROVIDERS: PCP Registered Nurse; Referring Provider Nurse Practitioner Family; Visit Provider Nurse Practitioner Family
DX: M54.2 Cervicalgia (principal)
CPT/HCPCS: 97110; 97162